=== PATIENT | male | born 1960 | race Caucasian/White ===

== ENCOUNTER → 2017-01-18 | Outpatient (CLI) | payer OTHER, MEDICAID ==
[2016-10-13 05:05] VITALS: BP 121/82
[2017-01-18 14:42] LABS: BASOPHILS % (AUTO) 0.8 % (0.2-1.0); EOSINOPHILS # (AUTO) 0.1 x10^3/uL (0.0-0.2); EOSINOPHILS % (AUTO) 2.1 % (0.9-2.9); HEMATOCRIT 43.6 % (42.0-54.0); HEMOGLOBIN 15.5 g/dL (13.5-18.0); LYMPHOCYTES # (AUTO) 1.9 X10^3/uL (1.3-2.9); LYMPHOCYTES % (AUTO) 29.1 % (21.0-51.0); MEAN CORPUSCULAR HEMOGLOBIN 30.3 pg (27.0-34.0); MEAN CORPUSCULAR HGB CONC 35.5 g/dL (33.0-35.0); MEAN CORPUSCULAR VOLUME 85.5 fL (80.0-100.0); MEAN PLATELET VOLUME 7.4 fL (7.4-11.0); MONOCYTES # (AUTO) 0.6 x10^3/uL (0.3-0.8); MONOCYTES % (AUTO) 8.7 % (0.0-13.0); NEUTROPHILS # (AUTO) 3.8 x10^3/uL (2.2-4.8); NEUTROPHILS % (AUTO) 59.3 % (42.0-75.0); PLATELET COUNT 183 X10^3/uL (150.0-450.0); RED CELL DISTRIBUTION WIDTH 13.1 % (11.6-16.5); WHITE BLOOD COUNT 6.4 X10^3/uL (3.6-10.0)
[2017-01-18 14:51] LABS: ALBUMIN 3.9 g/dL (3.4-5.0); BLOOD UREA NITROGEN 16 mg/dL (7-18); CALCIUM 8.5 mg/dL (8.5-10.1); CARBON DIOXIDE 29.4 mmol/L (21-32); CHLORIDE 103 mmol/L (98-107); CHOL/HDL RATIO 3.6 (0.0-5.0); CHOLESTEROL 168 mg/dL (0-200); CREATININE 1.14 mg/dL (0.70-1.30); GLUCOSE 102 mg/dL (65-99); HDL CHOLESTEROL 47 mg/dL (40-60); PHOSPHORUS 3.7 mg/dL (2.6-4.7); SODIUM 144 mmol/L (136-145); TRIGLYCERIDES 119 mg/dL (0-150); eGFR BLACK RACES > 60 (>60); eGFR NON BLACK RACES > 60 (>60)
== END ==
LOC: LAB 14:16
PROVIDERS: ATTEND Internal Medicine
DX: I12.9 Hypertensive chronic kidney disease with stage 1 through stage 4 chronic kidney disease, or unspecified chronic kidney disease (principal); N18.2 Chronic kidney disease, stage 2 (mild)
CPT/HCPCS: 36415; 80061; 80069; 84550; 85025

== ENCOUNTER → 2017-02-19 | Outpatient (CLI) | payer OTHER, MEDICAID ==
[2016-10-13 05:05] VITALS: BP 121/82
[2017-02-19 14:03] LABS: BASOPHILS # (AUTO) 0.1 X10^3/uL (0.0-0.1); BASOPHILS % (AUTO) 0.8 % (0.2-1.0); EOSINOPHILS # (AUTO) 0.1 x10^3/uL (0.0-0.2); EOSINOPHILS % (AUTO) 1.9 % (0.9-2.9); HEMATOCRIT 48.7 % (42.0-54.0); HEMOGLOBIN 17.1 g/dL (13.5-18.0); LYMPHOCYTES # (AUTO) 1.9 X10^3/uL (1.3-2.9); LYMPHOCYTES % (AUTO) 28.1 % (21.0-51.0); MEAN CORPUSCULAR HEMOGLOBIN 30.2 pg (27.0-34.0); MEAN CORPUSCULAR VOLUME 86.3 fL (80.0-100.0); MEAN PLATELET VOLUME 8.5 fL (7.4-11.0); MONOCYTES # (AUTO) 0.7 x10^3/uL (0.3-0.8); MONOCYTES % (AUTO) 10.5 % (0.0-13.0); NEUTROPHILS # (AUTO) 3.9 x10^3/uL (2.2-4.8); NEUTROPHILS % (AUTO) 58.7 % (42.0-75.0); PLATELET COUNT 184 X10^3/uL (150.0-450.0); RED BLOOD COUNT 5.64 X10^6/uL (4.7-6.0); RED CELL DISTRIBUTION WIDTH 13.6 % (11.6-16.5); WHITE BLOOD COUNT 6.7 X10^3/uL (3.6-10.0)
[2017-02-19 17:13] LABS: ALBUMIN 4.4 g/dL (3.4-5.0); BLOOD UREA NITROGEN 11 mg/dL (7-18); CALCIUM 9.3 mg/dL (8.5-10.1); CARBON DIOXIDE 29.9 mmol/L (21-32); CHLORIDE 102 mmol/L (98-107); CHOL/HDL RATIO 4.7 (0.0-5.0); CHOLESTEROL 168 mg/dL (0-200); GLUCOSE 103 mg/dL (65-99); HDL CHOLESTEROL 36 mg/dL (40-60); PHOSPHORUS 3.5 mg/dL (2.6-4.7); TRIGLYCERIDES 169 mg/dL (0-150); eGFR BLACK RACES > 60 (>60); eGFR NON BLACK RACES > 60 (>60)
[2017-02-19 17:23] LABS: SODIUM 140 mmol/L (136-145)
== END ==
LOC: LAB 12:11
PROVIDERS: ATTEND Internal Medicine
DX: I12.9 Hypertensive chronic kidney disease with stage 1 through stage 4 chronic kidney disease, or unspecified chronic kidney disease (principal); N18.2 Chronic kidney disease, stage 2 (mild); E78.4 Other hyperlipidemia; G47.33 Obstructive sleep apnea (adult) (pediatric); E66.8 Other obesity
CPT/HCPCS: 36415; 80061; 80069; 85025

== ENCOUNTER 2017-06-22 23:29 | Emergency (ER) | payer OTHER, MEDICAID ==
[2017-06-22 23:39] VITALS: BP 152/94; BMI 36.7
[2017-06-23] MEDS ORDERED: LASIX IVP ONE ×2 (00:10→00:16)
--- NOTE | 2017-06-23 00:18 | DR.GENAD ---
HPI - Complaint/Symptoms Chief Complaint Doctors Comments: Patient states he has been having problems breathing for the past seven days. States he goes to Dr. Arnett in [place] and sees a director of sales marketing and kidney doctor in [place]. He denies tobacco or alcohol usage. He had xiphoid chest pain earliers that was sharp but he is not having any chest pains presently. States he is having SOB and wheezing. states he has been having problems breathing and has been using mucinex without improvement. States he has c-pap machine at home and a nebulizer but does not have any medicine to go int the machine. States he has been having swelling of his right foot and leg today. States has episodes of severe cramps at times in his abdomen that cause him to punch himself in the stomach to relieve the cramps. States he has bruising on his stomach from punching himself. Chief Complaint:: pt states that he has been having trouble breathing and his breathing has been getting worse for 3 days. c/o lt ankle swelling. c/o chest pain. onset 1899. Self Treatment fo Chief Complaint: took nitro with no relief. - Nurses notes reviewed Nurses Notes Review: Yes - Source History Provided: Patient - Mode of Arrival Mode of Arrival: Ambulatory - Timing Onset of Chief Complaint: 06/20/17 - Duration Duration: Constant How lon Duration: Days - Location Location: xiphoid chest pain and SOB, - Severity Severity: Moderate - Modifying Factors Worsens:: nothing Improves:: nothing PMH - PMH Past Medical History: Yes Past Medical History: Anxiety, CHF, Depression, Dyslipidemia, Headaches, Hypertension, [place], Renal Disease Past Surgical History: Yes Surgical History: CABG/Valve Surgery, Ortho Surgery - Family History History of Family Medical Conditions: Yes Family Medical History: Diabetes Mellitus, Heart Failure, Hypertension - Social History Do you use any recreational Drugs:: No - infectious screening Have you traveled outside the country in the last 6 months?: No ROS - Review of Systems Constitutional: No Symptoms Reported Eyes: No Symptoms Reported ENTM: No Symptoms Reported, Nose Congestion Respiratoy: Short of Breath, Wheezing. negative: No Symptoms Reported, See HPI , Productive Cough, Non-Productive Cough, Moist Cough, Dry Cough, Hacking Cough , Barking Cough, Brassy Cough, Orthopnea, Stridor, Hemoptysis, Other Cardiovascular: No Symptoms Reported, Chest Pain, Edema Gastrointestinal/Abdominal: No Symptoms Reported. negative: Abdominal Pain ( bruising and ecchymosis noted hypogastric area) Genitourinary: No Symptoms Reported, Dysuria Neurological: No Symptoms Reported Musculoskeletal: No Symptoms Reported Integumentary: No Symptoms Reported, Change in Color, Bruises Hematologic/Lymphatic: No Symptoms Reported, Easy Bruising Endocrine: No Symptoms Reported Psychiatric: No Symptoms Reported PE - Vital Signs Vitals: Temperature 97.9 F Pulse Rate 70 Respiratory Rate 18 Blood Pressure [Right Arm] 101/58 Blood Pressure [Left Arm] 113/75 Blood Pressure [Standing] 103/71 Blood Pressure [Sitting] 121/76 Blood Pressure [Lying] 122/76 Blood Pressure 152/94 O2 Sat by Pulse Oximetry 97 - General Limitations: No Limitations General Appearance: Alert, Appears Intoxicated - Head Head Exam: Normal Inspection, Atraumatic, Normocephalic - Eyes Eye exam: Normal Appearance, PERRL, EOMI. negative: Scleral Icterus, Conjunctival Injection, Nystagmus, Miosis, Mydrasis, Periorbital Swelling, Periorbital Tenderness, Other - ENT ENT Exam: Normal Exam, Normal Oropharynx, Normal External Ear Exam, TM's Normal Bilaterally External Ear Exam: Normal External Inspection TM/Canal Exam: Bilateral Normal Nose Exam: Normal Nose Exam Mouth Exam: Normal Inspection Throat Exam: Normal Inspection, Tonsillar Erythema, Tonsillar Exudate - Neck Neck Exam: Normal Inspection, Full ROM, Trachea Midline. negative: Tenderness, Meningismus, Lymphadenopathy, Thyromegaly, Other - Chest Chest Inspection: Normal Inspection, Symmetric Chest Wall Rise - Respiratory Respiratory Exam: Chest Wall Tenderness, Prolonged Expiratory Phase. negative: Normal Lung Sounds Bilat Respiratory Exam: Bilateral Clear to Auscultation, Bilateral Decreased Breath Sounds - Cardiovascular Cardiovascular Exam: Normal Rhythm, Normal Heart Sounds, Systolic Murmur - Abdominal Exam Abdominal Exam: Normal Inspection Abdominal Tenderness: negative: RUQ, RLQ, LUQ, LLQ, Epigastrium, Suprapubic, Diffuse, Mild, Moderate, Severe, Other - Extremities Extremities Exam: Normal Inspection, Full ROM, Normal Capillary Refill - Back Back Exam: Normal Inspection, Full ROM - Neurologic Neurological Exam: Alert, Oriented X3, CN II-XII Intact, Reflexes Normal. negative: Normal Gait (gait not tested) - Psychiatric Psychiatric Exam: Normal Affect, Normal Mood - Skin Skin Exam: Warm, Dry, Intact, Normal Color ROR - Labs Reviewed Laboratory Results Reviewed?: Yes (all labs and x-ray results reviewed and discussed with patient) Result Diagrams: 06/23/17 00:20 06/23/17 00:20 Laboratory: WBC 10.0 X10^3/uL (3.6-10.0) 06/23/17 00:20 RBC 4.72 X10^6/uL (4.7-6.0) 06/23/17 00:20 Hgb 14.9 g/dL (13.5-18.0) 06/23/17 00:20 Hct 41.1 % (42.0-54.0) L 06/23/17 00:20 MCV 87.2 fL (80.0-100.0) 06/23/17 00:20 MCH 31.6 pg (27.0-34.0) 06/23/17 00:20 MCHC 36.3 g/dL (33.0-35.0) H 06/23/17 00:20 RDW 14.0 % (11.6-16.5) 06/23/17 00:20 Plt Count 223 X10^3/uL (150.0-450.0) 06/23/17 00:20 MPV 7.7 fL (7.4-11.0) 06/23/17 00:20 Neut % 74.5 % (42.0-75.0) 06/23/17 00:20 Lymph % 16.1 % (21.0-51.0) L 06/23/17 00:20 [place] % 7.1 % (0.0-13.0) 06/23/17 00:20 Eos % 1.4 % (0.9-2.9) 06/23/17 00:20 Baso % 0.9 % (0.2-1.0) 06/23/17 00:20 Neut # 7.4 x10^3/uL (2.2-4.8) H 06/23/17 00:20 Lymph # 1.6 X10^3/uL (1.3-2.9) 06/23/17 00:20 Crawford # 0.7 x10^3/uL (0.3-0.8) 06/23/17 00:20 Eos # 0.1 x10^3/uL (0.0-0.2) 06/23/17 00:20 Baso # 0.1 X10^3/uL (0.0-0.1) 06/23/17 00:20 Absolute Nucleated RBC 0.0 /100WBC 06/23/17 00:20 INR Target Range - 06/23/17 00:20 INR 0.97 (0.8-1.3) 06/23/17 00:20 PTT 29.2 SECONDS (22.9-36.5) 06/23/17 00:20 PTT Comment - 06/23/17 00:20 D-Dimer 779 ng/mL (0-400) H* 06/23/17 00:20 Sodium 134 mmol/L (136-145) L 06/23/17 00:20 Corrected Sodium 134 mmol/L (136-145) L 06/23/17 00:20 Potassium 3.4 mmol/L (3.5-5.1) L 06/23/17 00:20 Chloride 94 mmol/L (98-107) L 06/23/17 00:20 Carbon Dioxide 36.2 mmol/L (21-32) H 06/23/17 00:20 BUN 24 mg/dL (7-18) H 06/23/17 00:20 Creatinine 1.31 mg/dL (0.70-1.30) H 06/23/17 00:20 Est GFR (MDRD) Af Amer > 60 (>60) 06/23/17 00:20 Est GFR (MDRD) Non-Af > 60 (>60) 06/23/17 00:20 Glucose 117 mg/dL (65-99) H 06/23/17 00:20 Calcium 8.9 mg/dL (8.5-10.1) 06/23/17 00:20 Corrected Calcium TNP 06/23/17 00:20 Magnesium 2.2 mg/dL (1.7-2.9) 06/23/17 00:20 Total Bilirubin 0.70 mg/dL (0.2-1.0) 06/23/17 00:20 AST 42 Units/L (15-37) H 06/23/17 00:20 ALT 37 Units/L (12-78) 06/23/17 00:20 Alkaline Phosphatase 53 Units/L (46-116) 06/23/17 00:20 Creatine Kinase 800 Units/L (39-308) H 06/23/17 00:20 CK-MB (CK-2) 2.7 ng/mL (0-4.0) 06/23/17 00:20 CK/CKMB % Calc 0.3 % (<4) 06/23/17 00:20 Troponin I 0.02 ng/mL (0-1.5) 06/23/17 00:20 B-Natriuretic Peptide 150 pg/mL (0-79) H 06/23/17 00:20 Total Protein 7.8 g/dL (6.4-8.2) 06/23/17 00:20 Albumin 3.7 g/dL (3.4-5.0) 06/23/17 00:20 Globulin 4.1 g/dL (2.5-4.5) 06/23/17 00:20 Albumin/Globulin Ratio 0.9 Ratio (1.1-2.1) L 06/23/17 00:20 - XRAY XRAY Interpreted by: Radiologist (CTA chest: Cardiomegaly. No pulmonary embolism.) XRAY Findings: CXR: Mild cardiomegaly and central vascular congestion - EKG Rate: 69 [place]: Normal Rhythm: NSR Block: None Hypertrophy: None ST: Old, Lat, Infarct - Diagnosis Discharge Problem: CHF (congestive heart failure), Cardiomegaly, Hypokalemia, Essential hypertension - Discharge Plan Disposition: 01 HOME, SELF-CARE Condition: Stable - Follow ups/Referrals Follow ups/Referrals: MAVIS MCCORMACK [Primary Care Provider] - 3 days - Instructions Instructions: Ascites, Heart Failure, [id number], Hypokalemia, Hyperglycemia
[2017-06-23 01:03] LABS: BLOOD UREA NITROGEN 24 mg/dL (7-18); CALCIUM 8.9 mg/dL (8.5-10.1); CARBON DIOXIDE 36.2 mmol/L (21-32); CHLORIDE 94 mmol/L (98-107); COR NA(FOR HYPERGLY) 134 mmol/L (136-145); CREATININE 1.31 mg/dL (0.70-1.30); SODIUM 134 mmol/L (136-145); TROPONIN I 0.02 ng/mL (0-1.5); eGFR BLACK RACES > 60 (>60); eGFR NON BLACK RACES > 60 (>60)
[2017-06-23 01:07] LABS: BASOPHILS # (AUTO) 0.1 X10^3/uL (0.0-0.1); BASOPHILS % (AUTO) 0.9 % (0.2-1.0); EOSINOPHILS # (AUTO) 0.1 x10^3/uL (0.0-0.2); EOSINOPHILS % (AUTO) 1.4 % (0.9-2.9); HEMATOCRIT 41.1 % (42.0-54.0); HEMOGLOBIN 14.9 g/dL (13.5-18.0); LYMPHOCYTES # (AUTO) 1.6 X10^3/uL (1.3-2.9); LYMPHOCYTES % (AUTO) 16.1 % (21.0-51.0); MEAN CORPUSCULAR HEMOGLOBIN 31.6 pg (27.0-34.0); MEAN CORPUSCULAR HGB CONC 36.3 g/dL (33.0-35.0); MEAN CORPUSCULAR VOLUME 87.2 fL (80.0-100.0); MEAN PLATELET VOLUME 7.7 fL (7.4-11.0); MONOCYTES # (AUTO) 0.7 x10^3/uL (0.3-0.8); MONOCYTES % (AUTO) 7.1 % (0.0-13.0); NEUTROPHILS # (AUTO) 7.4 x10^3/uL (2.2-4.8); NEUTROPHILS % (AUTO) 74.5 % (42.0-75.0); PLATELET COUNT 223 X10^3/uL (150.0-450.0); RED BLOOD COUNT 4.72 X10^6/uL (4.7-6.0)
[2017-06-23 01:08] LABS: ALANINE AMINOTRANSFERASE 37 Units/L (12-78); ALBUMIN 3.7 g/dL (3.4-5.0); ALKALINE PHOSPHATASE 53 Units/L (46-116); ASPARTATE AMINO TRANSFERASE 42 Units/L (15-37); B-TYPE NATRIURETIC PEPTIDE 150 pg/mL (0-79); CKMB % 0.3 % (<4); CREATINE KINASE 800 Units/L (39-308); CREATINE KINASE MB 2.7 ng/mL (0-4.0); MAGNESIUM 2.2 mg/dL (1.7-2.9); TOTAL PROTEIN 7.8 g/dL (6.4-8.2)
--- NOTE | 2017-06-23 01:21 | RAD ---
EXAM: Chest X-ray INDICATION: Shortness of breath COMPARISION: Prior exam from January 13, 2015 TECHNIQUE: Single view FINDINGS: The lungs are clear and the lung volumes are within normal limits. No pleural effusion or pneumothora x. The cardiac silhouette is mildly enlarged and there central vascular congestion. The regional ske leton is intact. There is a left-sided defibrillator. IMPRESSION: There is mild cardiomegaly and central vascular congestion. Reported By:
--- NOTE | 2017-06-23 02:57 | CT ---
EXAM: CTA CHEST WITH CONTRAST INDICATION: Shortness of breath COMPARISION: No priors for comparison TECHNIQUE: Spiral CT of the chest was performed with contrast. Thin reconstructions in the axial and para-bassett l planes were obtained. 3D MIP imaging sequences were obtained using the axial data. The patient rece ived intravenous contrast without adverse reaction. FINDINGS: The heart is enlarged. No pulmonary embolism. No aortic aneurysm or dissection. No mediastinal or hil ar mass or adenopathy. The lungs are clear. No lung mass or consolidation. No pneumothorax or pleural effusion. IMPRESSION: Cardiomegaly. No pulmonary embolism. Reported By:
[2017-06-23] MEDS ORDERED: K-LYTE EFFERVESCENT PO STA (03:49)
[2017-06-23] MEDS ORDERED: K-LYTE EFFERVESCENT ONE (04:00)
== END 2017-06-23 04:08 | disposition home or self-care (01) ==
LOC: ER 23:29
DX: I50.9 Heart failure, unspecified (principal); I51.7 Cardiomegaly; I10 Essential (primary) hypertension; E87.6 Hypokalemia; R06.02 Shortness of breath; R79.1 Abnormal coagulation profile
CPT/HCPCS: 36415; 71010; 71275; 80053; 82550; 82553; 83735; 83880; 84484; 85025; 85378; 85610; 85730; 93005; 93010; 96365; 96367; 96374; 99283; A4222; J1940

== ENCOUNTER 2017-07-22 07:23 | Emergency (ER) | payer OTHER, MEDICAID ==
[2017-07-22 07:39] VITALS: BP 110/70; BMI 34.4
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
== END 2017-07-22 09:28 | disposition home or self-care (01) ==
LOC: ER 07:41
DX: G47.30 Sleep apnea, unspecified (principal)
CPT/HCPCS: 99281; 99282

== ENCOUNTER 2017-08-06 16:01 | Emergency (ER) | payer OTHER, MEDICAID ==
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
[2017-08-06 16:23] VITALS: BMI 29.0
[2017-08-06 16:59] LABS: EOSINOPHILS # (AUTO) 0.1 x10^3/uL (0.0-0.2); MONOCYTES # (AUTO) 1.1 x10^3/uL (0.3-0.8)
[2017-08-06 17:13] LABS: BASOPHILS # (AUTO) 0.3 X10^3/uL (0.0-0.1); BASOPHILS % (AUTO) 2.5 % (0.2-1.0); EOSINOPHILS % (AUTO) 0.8 % (0.9-2.9); HEMATOCRIT 46.3 % (42.0-54.0); HEMOGLOBIN 16.8 g/dL (13.5-18.0); LYMPHOCYTES # (AUTO) 1.5 X10^3/uL (1.3-2.9); LYMPHOCYTES % (AUTO) 11.8 % (21.0-51.0); MEAN CORPUSCULAR HEMOGLOBIN 30.9 pg (27.0-34.0); MEAN CORPUSCULAR HGB CONC 36.2 g/dL (33.0-35.0); MEAN CORPUSCULAR VOLUME 85.4 fL (80.0-100.0); MONOCYTES % (AUTO) 8.5 % (0.0-13.0); NEUTROPHILS # (AUTO) 9.7 x10^3/uL (2.2-4.8); NEUTROPHILS % (AUTO) 76.4 % (42.0-75.0); PLATELET COUNT 280 X10^3/uL (150.0-450.0); RED BLOOD COUNT 5.42 X10^6/uL (4.7-6.0); RED CELL DISTRIBUTION WIDTH 12.8 % (11.6-16.5); WHITE BLOOD COUNT 12.7 X10^3/uL (3.6-10.0)
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
[2017-08-06 17:49] LABS: ALANINE AMINOTRANSFERASE 33 Units/L (12-78); ALBUMIN 4.6 g/dL (3.4-5.0); ALKALINE PHOSPHATASE 76 Units/L (46-116); ASPARTATE AMINO TRANSFERASE 34 Units/L (15-37); BLOOD UREA NITROGEN 25 mg/dL (7-18); CALCIUM 10.1 mg/dL (8.5-10.1); CARBON DIOXIDE 36.7 mmol/L (21-32); CHLORIDE 88 mmol/L (98-107); CKMB % 1.1 % (<4); COR NA(FOR HYPERGLY) 135 mmol/L (136-145); CREATINE KINASE 335 Units/L (39-308); CREATINE KINASE MB 3.8 ng/mL (0-4.0); CREATININE 1.69 mg/dL (0.70-1.30); SODIUM 134 mmol/L (136-145); TOTAL PROTEIN 9.5 g/dL (6.4-8.2); TROPONIN I < 0.02 ng/mL (0-1.5); eGFR BLACK RACES 54 (>60); eGFR NON BLACK RACES 45 (>60)
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
[2017-08-06] MEDS ORDERED: POTASSIUM CHLORIDE LIQ 20 MEQ UDC PO ONE (18:33)
[2017-08-06] MEDS ORDERED: POTASSIUM CHLORIDE LIQ 20 MEQ UDC ONE (18:41)
[2017-08-06 19:22] VITALS: BP 120/83
== END 2017-08-06 19:23 | disposition home or self-care (01) ==
LOC: ER 16:01
DX: S29.019A Strain of muscle and tendon of unspecified wall of thorax, initial encounter (principal); S39.012A Strain of muscle, fascia and tendon of lower back, initial encounter; S20.211A Contusion of right front wall of thorax, initial encounter; V87.7XXA Person injured in collision between other specified motor vehicles (traffic), initial encounter; R51 Headache
CPT/HCPCS: 36415; 70450; 71250; 72125; 72131; 80053; 82550; 82553; 84484; 85025; 93005; 93010; 99283

== ENCOUNTER 2017-08-18 09:12 | Inpatient (IN) | payer OTHER, MEDICAID ==
[~2017-08-18 09:12] MED LIST: ASPIRIN PO ONE
[2017-08-18] MEDS: NITROSTAT SL PRN ×3 (09:12→09:23)
--- NOTE | 2017-08-18 09:25 | DR.CP ---
HPI - Time Seen Time seen: 09:10 - HPI Comment HPI Comment: 56 y/o male presenting via EMS with onset at about 6 a.m. It was intermittent but became steady. He took 1 NTG S/L w/o relief. There was associated nausea but no vomitting. He had dyspnea. There was no readiation of the retrosternal chest pain. - Complaint Chief Complaint:: Chest pain - Source History Provided: Patient - Mode of Arrival Mode of Arrival: EMS - Timing Came on: Gradually, On Awakening Pain: Present Now - Duration Duration: Constant (It was intermittent but became constant) Duration: Hours - Location Location of Chest Pain: Chest Chest Pain Radiation Location: None - Context Onset: At rest Cardiac Risk Factors: Hyperlipidemia, HTN, Diabetes PE Risk Factors: None History of: Similar pain in the past, [place], Angina Prehospital Care: Oxygen, [facility] Nitro - Quality Quality: Squeezing - Severity Severity: Severe - Modifying Factors Worsens: Nothing Impoves: Nothing - Associated Signs and Symptoms Associated Signs and Symptoms: Shortness of Breath, Nausea/Vomiting - Other History Other History: nausea w/o vomitting PMH - PMH Past Medical History: Anxiety, CHF, Depression, Dyslipidemia, Headaches, Hypertension, [place], Renal Disease Past Surgical History: Yes Surgical History: CABG/Valve Surgery, Ortho Surgery - Family History Family Medical History: Diabetes Mellitus, Heart Failure, Hypertension - Social History Do you use any recreational Drugs:: No ROS - Review of Systems Constitutional: No Symptoms Reported Eyes: No Symptoms Reported ENTM: No Symptoms Reported Respiratoy: Short of Breath Cardiovascular: Chest Pain Gastrointestinal/Abdominal: Nausea Genitourinary: No Symptoms Reported Neurological: No Symptoms Reported Musculoskeletal: No Symptoms Reported Integumentary: No Symptoms Reported Hematologic/Lymphatic: No Symptoms Reported Endocrine: No Symptoms Reported Psychiatric: No Symptoms Reported All Other Systems: Reviewed and Negative PE - Vitals Vitals: Temperature 98.1 F Pulse Rate [Right Brachial] 69 Pulse Rate 70 Respiratory Rate 21 Blood Pressure [Right Arm] 122/65 Blood Pressure [Left Arm] 120/83 Blood Pressure [Standing] 103/71 Blood Pressure [Sitting] 121/76 Blood Pressure [Lying] 122/76 Blood Pressure 134/78 O2 Sat by Pulse Oximetry 100 - General Limitations: No Limitations General Appearance: Alert, In No Apparent Distress - Head Head Exam: Normal Inspection - Eyes Eye exam: Normal Appearance - ENT ENT Exam: Normal Exam - Chest Chest Inspection: Normal Inspection - Respiratory Respiratory Exam: Normal Lung Sounds Bilat Respiratory Exam: Bilateral Clear to Auscultation - Cardiovascular Cardiovascular Exam: Regular Rate, Normal Rhythm Pulse: Normal Edema: Normal - Abdominal Exam Abdominal Exam: Normal Inspection, Normal Bowel Sounds, Soft - Extremities Extremities Exam: Normal Inspection, Full ROM - Back Back Exam: Normal Inspection, Full ROM - Neurologic Neurological Exam: Alert, Oriented X3, CN II-XII Intact - Psychiatric Psychiatric Exam: Normal Affect - Skin Skin Exam: Warm, Dry, Intact MDM - Differential Diagnosis Differential Diagnosis: Angina Course - Reevaluation 1st: Improved 2nd: Improved - Consultation Called: 10:50 Call Returned: 10:50 Consultation Comments: No need to transfer now based on current findings. If changes develop, call again - Education/Counseling Education/Counseling: Patient, Family Educated On: Treatment, Diagnosis, Prognosis, Needs for Follow Up ROR - Labs Reviewed Result Diagrams: 08/18/17 09:20 08/18/17 09:20 Laboratory: WBC 8.5 X10^3/uL (3.6-10.0) 08/18/17 09:20 RBC 4.85 X10^6/uL (4.7-6.0) 08/18/17 09:20 Hgb 15.2 g/dL (13.5-18.0) 08/18/17 09:20 Hct 42.3 % (42.0-54.0) 08/18/17 09:20 MCV 84.4 fL (80.0-100.0) 08/18/17 09:20 MCH 30.8 pg (27.0-34.0) 08/18/17 09:20 MCHC 36.4 g/dL (33.0-35.0) H 08/18/17 09:20 RDW 13.0 % (11.6-16.5) 08/18/17 09:20 Plt Count 250 X10^3/uL (150.0-450.0) 08/18/17 09:20 MPV 8.1 fL (7.4-11.0) 08/18/17 09:20 Neut % 68.0 % (42.0-75.0) 08/18/17 09:20 Lymph % 22.2 % (21.0-51.0) 08/18/17 09:20 [place] % 8.1 % (0.0-13.0) 08/18/17 09:20 Eos % 0.9 % (0.9-2.9) 08/18/17 09:20 Baso % 0.8 % (0.2-1.0) 08/18/17 09:20 Neut # 5.8 x10^3/uL (2.2-4.8) H 08/18/17 09:20 Lymph # 1.9 X10^3/uL (1.3-2.9) 08/18/17 09:20 [place] # 0.7 x10^3/uL (0.3-0.8) 08/18/17 09:20 Eos # 0.1 x10^3/uL (0.0-0.2) 08/18/17 09:20 Baso # 0.1 X10^3/uL (0.0-0.1) 08/18/17 09:20 Absolute Nucleated RBC 0.0 /100WBC 08/18/17 09:20 INR Target Range - 08/18/17 09:20 INR 1.38 (0.8-1.3) H 08/18/17 09:20 PTT 29.5 SECONDS (22.9-36.5) 08/18/17 09:20 PTT Comment - 08/18/17 09:20 D-Dimer 2400 ng/mL (0-400) H* 08/18/17 09:20 Sodium 130 mmol/L (136-145) L 08/18/17 09:20 Corrected Sodium 131 mmol/L (136-145) L 08/18/17 09:20 Potassium 2.2 mmol/L (3.5-5.1) L* 08/18/17 09:20 Chloride 98 mmol/L (98-107) 08/18/17 09:20 Carbon Dioxide 27.9 mmol/L (21-32) 08/18/17 09:20 BUN 15 mg/dL (7-18) 08/18/17 09:20 Creatinine 1.11 mg/dL (0.70-1.30) 08/18/17 09:20 Est GFR (MDRD) Af Amer > 60 (>60) 08/18/17 09:20 Est GFR (MDRD) Non-Af > 60 (>60) 08/18/17 09:20 Glucose 134 mg/dL (65-99) H 08/18/17 09:20 Calcium 8.6 mg/dL (8.5-10.1) 08/18/17 09:20 Corrected Calcium TNP 08/18/17 09:20 Phosphorus 2.7 mg/dL (2.6-4.7) 08/18/17 09:14 Magnesium 1.7 mg/dL (1.7-2.9) 08/18/17 09:14 Total Bilirubin 1.20 mg/dL (0.2-1.0) H 08/18/17 09:20 AST 36 Units/L (15-37) 08/18/17 09:20 ALT 35 Units/L (12-78) 08/18/17 09:20 Alkaline Phosphatase 57 Units/L (46-116) 08/18/17 09:20 Creatine Kinase 354 Units/L (39-308) H 08/18/17 09:20 CK-MB (CK-2) 3.9 ng/mL (0-4.0) 08/18/17 09:20 CK/CKMB % Calc 1.1 % (<4) 08/18/17 09:20 Troponin I < 0.02 ng/mL (0-1.5) 08/18/17 09:20 Total Protein 7.8 g/dL (6.4-8.2) 08/18/17 09:20 Albumin 3.7 g/dL (3.4-5.0) 08/18/17 09:20 Globulin 4.1 g/dL (2.5-4.5) 08/18/17 09:20 Albumin/Globulin Ratio 0.9 Ratio (1.1-2.1) L 08/18/17 09:20 - XRAY XRAY Interpreted by: Self XRAY Findings: no cardiomegaly. pacemaker wires noted. - EKG Rate: 68 [place]: RAD Rhythm: NSR Block: None Hypertrophy: None ST: Normal - Diagnosis Discharge Problem: Chest pain, CAD (coronary artery disease), Hyponatremia, Hypokalemia, D-dimer, elevated - Discharge Plan Disposition: ADMITTED INPATIENT Condition: Stable - Follow ups/Referrals Follow ups/Referrals: NFD,None [Primary Care Provider] - 3 days - Instructions
[2017-08-18 09:36] VITALS: BMI 35.9
[2017-08-18] MEDS ORDERED: ASPIRIN ONE (09:46)
[2017-08-18] MEDS ORDERED: MORPHINE SULFATE INJ 2 MG INJ IVP ONE (09:49)
[2017-08-18] MEDS ORDERED: MORPHINE SULFATE INJ 2 MG INJ ONE (09:50)
[2017-08-18 10:01] LABS: ALANINE AMINOTRANSFERASE 35 Units/L (12-78); ALBUMIN 3.7 g/dL (3.4-5.0); ALKALINE PHOSPHATASE 57 Units/L (46-116); ASPARTATE AMINO TRANSFERASE 36 Units/L (15-37); BLOOD UREA NITROGEN 15 mg/dL (7-18); CALCIUM 8.6 mg/dL (8.5-10.1); CARBON DIOXIDE 27.9 mmol/L (21-32); CHLORIDE 98 mmol/L (98-107); CKMB % 1.1 % (<4); COR NA(FOR HYPERGLY) 131 mmol/L (136-145); CREATINE KINASE 354 Units/L (39-308); CREATINE KINASE MB 3.9 ng/mL (0-4.0); CREATININE 1.11 mg/dL (0.70-1.30); SODIUM 130 mmol/L (136-145); TOTAL PROTEIN 7.8 g/dL (6.4-8.2); TROPONIN I < 0.02 ng/mL (0-1.5); eGFR BLACK RACES > 60 (>60); eGFR NON BLACK RACES > 60 (>60)
[2017-08-18 10:13] LABS: MAGNESIUM 1.6 mg/dL (1.7-2.9); PHOSPHORUS 2.7 mg/dL (2.6-4.7)
[2017-08-18 10:13] LABS: BASOPHILS # (AUTO) 0.1 X10^3/uL (0.0-0.1); BASOPHILS % (AUTO) 0.8 % (0.2-1.0); EOSINOPHILS # (AUTO) 0.1 x10^3/uL (0.0-0.2); EOSINOPHILS % (AUTO) 0.9 % (0.9-2.9); LYMPHOCYTES # (AUTO) 1.9 X10^3/uL (1.3-2.9); LYMPHOCYTES % (AUTO) 22.2 % (21.0-51.0); MEAN CORPUSCULAR HEMOGLOBIN 30.8 pg (27.0-34.0); MEAN CORPUSCULAR HGB CONC 36.4 g/dL (33.0-35.0); MEAN CORPUSCULAR VOLUME 84.4 fL (80.0-100.0); MEAN PLATELET VOLUME 8.1 fL (7.4-11.0); MONOCYTES # (AUTO) 0.7 x10^3/uL (0.3-0.8); MONOCYTES % (AUTO) 8.1 % (0.0-13.0); NEUTROPHILS # (AUTO) 5.8 x10^3/uL (2.2-4.8); PLATELET COUNT 250 X10^3/uL (150.0-450.0); RED BLOOD COUNT 4.85 X10^6/uL (4.7-6.0); WHITE BLOOD COUNT 8.5 X10^3/uL (3.6-10.0)
[2017-08-18 10:24] LABS: HEMATOCRIT 42.3 % (42.0-54.0); HEMOGLOBIN 15.2 g/dL (13.5-18.0)
[2017-08-18] MEDS ORDERED: K-LYTE EFFERVESCENT PO ONE ×2 (10:52→20:13)
[2017-08-18] MEDS ORDERED: K-LYTE EFFERVESCENT ONE (10:53)
[2017-08-18] MEDS ORDERED: K-RIDER 10 MEQ/NS 100 ML 10 MEQ/100 ML BAG IV PRN (11:00)
[2017-08-18] MEDS ORDERED: MAGNESIUM SULFATE 1 GM/100 mL PREMIX 1 GM/100 ML BAG IV PRN (11:00)
[2017-08-18] MEDS ORDERED: MAG-OX TAB PO PRN (11:00)
[2017-08-18] MEDS ORDERED: LEVAQUIN PREMIX IV 750 MG 750 MG/150 ML BAG IV ONE (11:19)
[2017-08-18] MEDS ORDERED: NS 100 ML IV 100 ML IV ONE (11:41)
--- NOTE | 2017-08-18 12:47 | RAD ---
HISTORY: 56-year-old female with chest pain. Study: Frontal view of the chest. Comparison: CT chest 08/06/2017 Findings: Right chest wall AICD is stable. Right shoulder soft tissue anchors. The trachea is midline. The cardiac silhouette is stably enlarged with low lung volumes and chronic interstitial thickening and prominent perihilar lung markings. The lungs are clear without focal con solidation, effusion or pneumothorax. Soft tissues are unremarkable. Osseous structures are unremark able. IMPRESSION: 1. No acute cardiopulmonary disease. Reported By:
[2017-08-18] MEDS ORDERED: PERCOCET TAB 5/325 MG PO ONE (13:05)
[2017-08-18] MEDS ORDERED: PERCOCET TAB 5/325 MG ONE (13:05)
[2017-08-18] MEDS: K-LYTE EFFERVESCENT PO PRN ×3 (13:08→16:45)
[2017-08-18] MEDS ORDERED: PREVNAR 13 IM ONE (15:34)
[2017-08-18] MEDS ORDERED: FLUVIRIN IM ONE (15:34)
[2017-08-18 15:54] LABS: CREATINE KINASE 339 Units/L (39-308); CREATINE KINASE MB 3.5 ng/mL (0-4.0); TROPONIN I < 0.02 ng/mL (0-1.5)
[2017-08-18] MEDS: NS + KCL 40 MEQ/L 1,000 ML IV SCH ×2 (16:56→21:43)
[2017-08-18] MEDS ORDERED: ACETAMINOPHEN PO PRN (17:22)
[2017-08-18] MEDS ORDERED: OXYCODONE PO PRN (17:22)
[2017-08-18] MEDS ORDERED: XOPENEX 1.25 MG/3 ML NEBULE NEB PRN (17:24)
[2017-08-18] MEDS ORDERED: BUPROPION HCL PO SCH (17:30)
[2017-08-18] MEDS ORDERED: POTASSIUM CHLORIDE PO SCH (17:30)
[2017-08-18] MEDS ORDERED: VISTARIL PO PRN (17:48)
[2017-08-18] MEDS: MORPHINE SULFATE INJ 2 MG INJ IVP PRN (17:59)
[2017-08-18] MEDS: ASPIRIN 81 MG CHEWTAB PO SCH (18:02)
[2017-08-18] MEDS: KLONOPIN TAB 1 MG PO SCH ×2 (18:32→21:30)
[2017-08-18] MEDS: PLAVIX PO SCH (18:32)
[2017-08-18] MEDS: NexIUM PO SCH (18:32)
[2017-08-18] MEDS: LASIX PO SCH ×2 (18:35→21:30)
[2017-08-18] MEDS: NEURONTIN CAP 300 MG PO SCH ×2 (18:35→21:44)
[2017-08-18] MEDS: PERCOCET TAB 5/325 MG PO PRN (19:47)
[2017-08-18] MEDS ORDERED: PATIENT'S HOME MEDICATION (Rosuvastatin Calcium [Rosuvastatin Calcium] 1 TAB) PO SCH (21:00)
[2017-08-18] MEDS: ALDACTONE TAB 25 MG PO SCH (21:31)
[2017-08-18] MEDS: ZANTAC PO SCH (21:31)
[2017-08-18] MEDS: CRESTOR TAB 10 MG PO SCH (21:31)
[2017-08-18 22:20] LABS: CKMB % 1.1 % (<4); CREATINE KINASE 283 Units/L (39-308); CREATINE KINASE MB 3.2 ng/mL (0-4.0); TROPONIN I < 0.02 ng/mL (0-1.5)
[2017-08-18] MEDS: WELLBUTRIN IR (PLAIN) PO SCH (23:40)
[2017-08-18] MEDS: K-DUR TAB 20 MEQ PO SCH (23:41)
[2017-08-19] MEDS: NS + KCL 20 MEQ/L 1,000 ML IV SCH ×4 (02:15→17:48)
[2017-08-19] MEDS: NEURONTIN CAP 300 MG PO SCH (05:06)
[2017-08-19] MEDS: MORPHINE SULFATE INJ 2 MG INJ IVP PRN ×2 (05:06→16:33)
[2017-08-19] MEDS: WELLBUTRIN IR (PLAIN) PO SCH ×3 (05:07→21:43)
[2017-08-19 05:29] LABS: BASOPHILS # (AUTO) 0.1 X10^3/uL (0.0-0.1); BASOPHILS % (AUTO) 0.6 % (0.2-1.0); EOSINOPHILS # (AUTO) 0.1 x10^3/uL (0.0-0.2); EOSINOPHILS % (AUTO) 1.1 % (0.9-2.9); HEMATOCRIT 40.9 % (42.0-54.0); HEMOGLOBIN 14.4 g/dL (13.5-18.0); LYMPHOCYTES # (AUTO) 1.9 X10^3/uL (1.3-2.9); LYMPHOCYTES % (AUTO) 21.6 % (21.0-51.0); MEAN CORPUSCULAR HEMOGLOBIN 30.7 pg (27.0-34.0); MEAN CORPUSCULAR HGB CONC 35.3 g/dL (33.0-35.0); MEAN CORPUSCULAR VOLUME 86.9 fL (80.0-100.0); MEAN PLATELET VOLUME 8.5 fL (7.4-11.0); MONOCYTES # (AUTO) 0.9 x10^3/uL (0.3-0.8); MONOCYTES % (AUTO) 10.1 % (0.0-13.0); NEUTROPHILS # (AUTO) 5.8 x10^3/uL (2.2-4.8); NEUTROPHILS % (AUTO) 66.6 % (42.0-75.0); PLATELET COUNT 227 X10^3/uL (150.0-450.0); RED BLOOD COUNT 4.71 X10^6/uL (4.7-6.0); RED CELL DISTRIBUTION WIDTH 13.1 % (11.6-16.5); WHITE BLOOD COUNT 8.7 X10^3/uL (3.6-10.0)
[2017-08-19 05:35] LABS: ALANINE AMINOTRANSFERASE 30 Units/L (12-78); ALBUMIN 3.3 g/dL (3.4-5.0); ALKALINE PHOSPHATASE 50 Units/L (46-116); ASPARTATE AMINO TRANSFERASE 28 Units/L (15-37); BLOOD UREA NITROGEN 10 mg/dL (7-18); CALCIUM 8.3 mg/dL (8.5-10.1); CARBON DIOXIDE 32.7 mmol/L (21-32); CHLORIDE 102 mmol/L (98-107); CHOL/HDL RATIO 3.3 (0.0-5.0); CHOLESTEROL 116 mg/dL (0-200); COR CA(FOR HYPOALB) 8.9 mg/dL (8.5-10.1); CREATININE 1.04 mg/dL (0.70-1.30); HDL CHOLESTEROL 35 mg/dL (40-60); SODIUM 143 mmol/L (136-145); TOTAL PROTEIN 7.2 g/dL (6.4-8.2); TRIGLYCERIDES 115 mg/dL (0-150); eGFR BLACK RACES > 60 (>60); eGFR NON BLACK RACES > 60 (>60)
[2017-08-19] MEDS: KLONOPIN TAB 1 MG PO SCH ×2 (08:43→20:54)
[2017-08-19] MEDS: NexIUM PO SCH (08:43)
[2017-08-19] MEDS: LASIX PO SCH ×2 (08:43→20:53)
[2017-08-19] MEDS: ALDACTONE TAB 25 MG PO SCH ×2 (08:43→20:53)
[2017-08-19] MEDS: K-DUR TAB 20 MEQ PO SCH ×2 (08:43→20:53)
[2017-08-19] MEDS: ASPIRIN 81 MG CHEWTAB PO SCH (08:43)
[2017-08-19] MEDS: PERCOCET TAB 5/325 MG PO PRN ×3 (08:44→19:18)
[2017-08-19] MEDS: PLAVIX PO SCH (08:44)
[2017-08-19] MEDS ORDERED: K-LYTE EFFERVESCENT PO ONE (10:52)
--- NOTE | 2017-08-19 13:36 | NM ---
Indication: Chest pain and shortness of breath Exam: V/Q lung scan. Technique: The patient was ventilated with Tc 99 M DTPA and spot images were obtained . The patient w as injected with Tc 99 Maa and spot perfusion images were obtained. Findings: There is physiologic ventilation throughout both lungs with no focal areas of increased or decreased uptake. There is homogeneous perfusion throughout both lungs with no focal defects. Impression: Low probability for a pulmonary embolus. Reported By:
[2017-08-19] MEDS: NEURONTIN TAB 600 MG PO SCH ×2 (13:55→21:00)
[2017-08-19] MEDS: ZANTAC PO SCH (20:53)
[2017-08-19] MEDS: CRESTOR TAB 10 MG PO SCH (20:54)
[2017-08-19] MEDS: SOMA TAB 350 MG PO SCH (20:54)
[2017-08-19] MEDS: ULTRAM PO PRN (23:18)
[2017-08-20] MEDS: NS + KCL 20 MEQ/L 1,000 ML IV SCH ×4 (01:01→18:25)
[2017-08-20] MEDS: PERCOCET TAB 5/325 MG PO PRN ×3 (04:33→20:42)
[2017-08-20] MEDS: NEURONTIN TAB 600 MG PO SCH ×3 (05:04→22:57)
[2017-08-20] MEDS: WELLBUTRIN IR (PLAIN) PO SCH ×3 (05:05→22:57)
[2017-08-20 05:24] LABS: BASOPHILS # (AUTO) 0.1 X10^3/uL (0.0-0.1); BASOPHILS % (AUTO) 0.7 % (0.2-1.0); EOSINOPHILS # (AUTO) 0.3 x10^3/uL (0.0-0.2); EOSINOPHILS % (AUTO) 3.1 % (0.9-2.9); HEMATOCRIT 37.7 % (42.0-54.0); HEMOGLOBIN 13.5 g/dL (13.5-18.0); LYMPHOCYTES # (AUTO) 1.4 X10^3/uL (1.3-2.9); LYMPHOCYTES % (AUTO) 15.9 % (21.0-51.0); MEAN CORPUSCULAR HEMOGLOBIN 30.7 pg (27.0-34.0); MEAN CORPUSCULAR HGB CONC 35.7 g/dL (33.0-35.0); MEAN CORPUSCULAR VOLUME 86.2 fL (80.0-100.0); MEAN PLATELET VOLUME 8.4 fL (7.4-11.0); MONOCYTES # (AUTO) 0.8 x10^3/uL (0.3-0.8); MONOCYTES % (AUTO) 9.1 % (0.0-13.0); NEUTROPHILS # (AUTO) 6.2 x10^3/uL (2.2-4.8); NEUTROPHILS % (AUTO) 71.2 % (42.0-75.0); PLATELET COUNT 198 X10^3/uL (150.0-450.0); RED BLOOD COUNT 4.38 X10^6/uL (4.7-6.0); RED CELL DISTRIBUTION WIDTH 12.9 % (11.6-16.5); WHITE BLOOD COUNT 8.7 X10^3/uL (3.6-10.0)
[2017-08-20 05:36] LABS: ALANINE AMINOTRANSFERASE 24 Units/L (12-78); ALBUMIN 3.1 g/dL (3.4-5.0); ALKALINE PHOSPHATASE 54 Units/L (46-116); ASPARTATE AMINO TRANSFERASE 20 Units/L (15-37); BLOOD UREA NITROGEN 7 mg/dL (7-18); CALCIUM 8.3 mg/dL (8.5-10.1); CARBON DIOXIDE 29.9 mmol/L (21-32); CHLORIDE 105 mmol/L (98-107); CREATININE 0.93 mg/dL (0.70-1.30); SODIUM 142 mmol/L (136-145); TOTAL PROTEIN 6.8 g/dL (6.4-8.2); eGFR BLACK RACES > 60 (>60); eGFR NON BLACK RACES > 60 (>60)
[2017-08-20] MEDS: ALDACTONE TAB 25 MG PO SCH ×2 (08:48→20:43)
[2017-08-20] MEDS: NexIUM PO SCH (08:49)
[2017-08-20] MEDS: KLONOPIN TAB 1 MG PO SCH ×2 (08:49→20:44)
[2017-08-20] MEDS: K-DUR TAB 20 MEQ PO SCH ×2 (08:49→20:43)
[2017-08-20] MEDS: PLAVIX PO SCH (08:49)
[2017-08-20] MEDS: LASIX PO SCH ×2 (08:49→20:41)
[2017-08-20] MEDS: ASPIRIN 81 MG CHEWTAB PO SCH (08:49)
[2017-08-20] MEDS: MORPHINE SULFATE INJ 2 MG INJ IVP PRN ×3 (09:30→19:38)
[2017-08-20] MEDS: ULTRAM PO PRN (09:32)
[2017-08-20 09:46] LABS: CKMB % 2.1 % (<4); CREATINE KINASE MB 3.6 ng/mL (0-4.0); TROPONIN I 0.02 ng/mL (0-1.5)
[2017-08-20] MEDS: ZANTAC PO SCH (20:41)
[2017-08-20] MEDS: CRESTOR TAB 10 MG PO SCH (20:43)
[2017-08-20] MEDS: SOMA TAB 350 MG PO SCH (20:44)
[2017-08-20] MEDS: MILK OF MAGNESIA PO PRN (22:56)
[2017-08-21] MEDS: NS + KCL 20 MEQ/L 1,000 ML IV SCH ×5 (02:31→17:48)
[2017-08-21] MEDS: PERCOCET TAB 5/325 MG PO PRN ×3 (04:42→20:51)
[2017-08-21] MEDS: NEURONTIN TAB 600 MG PO SCH ×3 (05:03→21:00)
[2017-08-21] MEDS: WELLBUTRIN IR (PLAIN) PO SCH ×3 (05:03→21:00)
[2017-08-21 05:49] LABS: BASOPHILS # (AUTO) 0.1 X10^3/uL (0.0-0.1); BASOPHILS % (AUTO) 0.7 % (0.2-1.0); EOSINOPHILS # (AUTO) 0.4 x10^3/uL (0.0-0.2); EOSINOPHILS % (AUTO) 4.4 % (0.9-2.9); HEMATOCRIT 39.4 % (42.0-54.0); HEMOGLOBIN 14.1 g/dL (13.5-18.0); LYMPHOCYTES # (AUTO) 1.8 X10^3/uL (1.3-2.9); LYMPHOCYTES % (AUTO) 19.5 % (21.0-51.0); MEAN CORPUSCULAR HEMOGLOBIN 31.3 pg (27.0-34.0); MEAN CORPUSCULAR HGB CONC 35.8 g/dL (33.0-35.0); MEAN CORPUSCULAR VOLUME 87.3 fL (80.0-100.0); MEAN PLATELET VOLUME 8.4 fL (7.4-11.0); MONOCYTES # (AUTO) 0.7 x10^3/uL (0.3-0.8); MONOCYTES % (AUTO) 8.1 % (0.0-13.0); NEUTROPHILS # (AUTO) 6.1 x10^3/uL (2.2-4.8); NEUTROPHILS % (AUTO) 67.3 % (42.0-75.0); PLATELET COUNT 204 X10^3/uL (150.0-450.0); RED BLOOD COUNT 4.51 X10^6/uL (4.7-6.0); RED CELL DISTRIBUTION WIDTH 12.8 % (11.6-16.5)
[2017-08-21 06:21] LABS: ALANINE AMINOTRANSFERASE 22 Units/L (12-78); ALBUMIN 3.3 g/dL (3.4-5.0); ALKALINE PHOSPHATASE 60 Units/L (46-116); ASPARTATE AMINO TRANSFERASE 20 Units/L (15-37); BLOOD UREA NITROGEN 8 mg/dL (7-18); CALCIUM 8.5 mg/dL (8.5-10.1); CARBON DIOXIDE 30.3 mmol/L (21-32); CHLORIDE 103 mmol/L (98-107); COR CA(FOR HYPOALB) 9.1 mg/dL (8.5-10.1); CREATININE 0.98 mg/dL (0.70-1.30); SODIUM 141 mmol/L (136-145); TOTAL PROTEIN 7.4 g/dL (6.4-8.2); eGFR BLACK RACES > 60 (>60); eGFR NON BLACK RACES > 60 (>60)
[2017-08-21] MEDS: ULTRAM PO PRN ×2 (06:41→16:30)
[2017-08-21] MEDS: LASIX PO SCH ×2 (08:30→20:52)
[2017-08-21] MEDS: ASPIRIN 81 MG CHEWTAB PO SCH (08:30)
[2017-08-21] MEDS: ALDACTONE TAB 25 MG PO SCH ×2 (08:30→20:52)
[2017-08-21] MEDS: KLONOPIN TAB 1 MG PO SCH ×2 (08:30→20:52)
[2017-08-21] MEDS: K-DUR TAB 20 MEQ PO SCH ×2 (08:30→20:52)
[2017-08-21] MEDS: NexIUM PO SCH (08:30)
[2017-08-21] MEDS: MORPHINE SULFATE INJ 2 MG INJ IVP PRN ×2 (08:45→14:54)
[2017-08-21] MEDS ORDERED: PHARMACY CONSULT - DOSE _____ XX SCH (09:00)
[2017-08-21] MEDS: PLAVIX PO SCH (09:28)
[2017-08-21] MEDS: XOPENEX 1.25 MG/3 ML NEBULE NEB PRN ×3 (09:30→17:00)
[2017-08-21] MEDS: TEFLARO 600 MG in NS 50 ML IV 50 ML IV SCH ×2 (10:03→20:57)
--- NOTE | 2017-08-21 15:30 | US ---
HISTORY: Right upper quadrant pain, nausea Study: Right upper quadrant abdominal ultrasound Comparison: None Technique: Multiple images of the right upper quadrant were obtained. Findings: The liver measures 16.2 cm. Increased echogenicity throughout the liver suggests fatty infiltration. Correlate clinically as other causes of hepatic disease may produce a similar appearance. The right k idney measures 10.0 x 6.0 x 5.6 cm. An approximate 1.5 x 1.9 x 2.0 cm cyst is noted within the right kidney. No sonographic evidence of hydronephrosis is identified. No shadowing echogenic stones are no christina within the gallbladder. Gallbladder wall thickness is at the upper limits of normal measuring yoseph roximately 3.0 mm. The common bile duct is within normal limits in caliber measuring 4.7 mm. The panc reas was not visualized. IMPRESSION: Sonographic findings of hepatic steatosis. Right renal cyst. Reported By:
[2017-08-21] MEDS: MILK OF MAGNESIA PO PRN (16:30)
[2017-08-21] MEDS: CRESTOR TAB 10 MG PO SCH (20:51)
[2017-08-21] MEDS: ZANTAC PO SCH (20:52)
[2017-08-21] MEDS: SOMA TAB 350 MG PO SCH (20:52)
[2017-08-22] MEDS: MORPHINE SULFATE INJ 2 MG INJ IVP PRN ×2 (02:21→07:47)
[2017-08-22] MEDS: WELLBUTRIN IR (PLAIN) PO SCH (05:09)
[2017-08-22] MEDS: NEURONTIN TAB 600 MG PO SCH (05:09)
[2017-08-22] MEDS: NS + KCL 20 MEQ/L 1,000 ML IV SCH (05:11)
[2017-08-22] MEDS: ULTRAM PO PRN (05:21)
[2017-08-22 05:25] LABS: BASOPHILS % (AUTO) 0.9 % (0.2-1.0); EOSINOPHILS # (AUTO) 0.3 x10^3/uL (0.0-0.2); EOSINOPHILS % (AUTO) 6.7 % (0.9-2.9); HEMATOCRIT 35.6 % (42.0-54.0); HEMOGLOBIN 12.5 g/dL (13.5-18.0); LYMPHOCYTES # (AUTO) 1.2 X10^3/uL (1.3-2.9); LYMPHOCYTES % (AUTO) 23.3 % (21.0-51.0); MEAN CORPUSCULAR HEMOGLOBIN 30.7 pg (27.0-34.0); MEAN CORPUSCULAR HGB CONC 35.2 g/dL (33.0-35.0); MEAN CORPUSCULAR VOLUME 87.2 fL (80.0-100.0); MEAN PLATELET VOLUME 8.5 fL (7.4-11.0); MONOCYTES # (AUTO) 0.5 x10^3/uL (0.3-0.8); MONOCYTES % (AUTO) 9.9 % (0.0-13.0); NEUTROPHILS % (AUTO) 59.2 % (42.0-75.0); PLATELET COUNT 164 X10^3/uL (150.0-450.0); RED BLOOD COUNT 4.09 X10^6/uL (4.7-6.0); RED CELL DISTRIBUTION WIDTH 12.7 % (11.6-16.5); WHITE BLOOD COUNT 5.1 X10^3/uL (3.6-10.0)
[2017-08-22 05:39] LABS: ALANINE AMINOTRANSFERASE 17 Units/L (12-78); ALBUMIN 2.9 g/dL (3.4-5.0); ALKALINE PHOSPHATASE 53 Units/L (46-116); ASPARTATE AMINO TRANSFERASE 14 Units/L (15-37); BLOOD UREA NITROGEN 7 mg/dL (7-18); CARBON DIOXIDE 28.1 mmol/L (21-32); CHLORIDE 105 mmol/L (98-107); COR CA(FOR HYPOALB) 8.9 mg/dL (8.5-10.1); COR NA(FOR HYPERGLY) 139 mmol/L (136-145); CREATININE 0.96 mg/dL (0.70-1.30); SODIUM 138 mmol/L (136-145); TOTAL PROTEIN 6.5 g/dL (6.4-8.2); eGFR BLACK RACES > 60 (>60); eGFR NON BLACK RACES > 60 (>60)
[2017-08-22 08:02] VITALS: BP 116/81
== END 2017-08-22 08:25 | disposition short-term general hospital (02) | DRG 313 ==
LOC: ER 09:16 → MED/SURG 13:32
PROVIDERS: ADMIT Internal Medicine; ATTEND Internal Medicine
DX: R07.2 Precordial pain (principal); E87.6 Hypokalemia; E78.2 Mixed hyperlipidemia; I12.9 Hypertensive chronic kidney disease with stage 1 through stage 4 chronic kidney disease, or unspecified chronic kidney disease; I25.10 Atherosclerotic heart disease of native coronary artery without angina pectoris; E87.1 Hypo-osmolality and hyponatremia; I48.91 Unspecified atrial fibrillation; M54.5 Low back pain; F41.8 Other specified anxiety disorders; N19 Unspecified kidney failure; R06.02 Shortness of breath; R10.13 Epigastric pain; Z95.810 Presence of automatic (implantable) cardiac defibrillator
CPT/HCPCS: 36415; 71010; 76705; 78582; 80053; 80061; 82550; 82553; 83735; 84100; 84132; 84484; 85025; 85378; 85610; 85730; 87070; 87205; 90686; 93005; 93010; 94640; 94760; 96365; 96374; 99221; 99284; A4222; Q0177; 90670; J0712; J1956; J2270

== ENCOUNTER 2017-10-20 09:42 | Emergency (ER) | payer OTHER, MEDICAID ==
[2017-10-20 09:53] VITALS: BP 130/88; BMI 32.5
--- NOTE | 2017-10-20 10:37 | DR.GENAD ---
HPI - PCP Primary Care Physician: Dr. Knowles - Complaint/Symptoms Chief Complaint Doctors Comments: Patient with chronic pain syndrome manifested by osteoarthritis, usually gets perocet monthly by his primary care physician. His physician did not write prescription before going on vacation for the holiday. Chief Complaint:: c/o chronic back and shoulder pain bilaterally and states that he takes Percocet 10 TID and has been unable to get it refilled by PCP Self Treatment fo Chief Complaint: Took motrin at home with no relief - Source History Provided: Patient - Mode of Arrival Mode of Arrival: Ambulatory - Timing Onset of Chief Complaint: 10/20/17 PMH - PMH Past Medical History: Yes Past Medical History: Anxiety, CHF, COPD, Depression, Dyslipidemia, Headaches, Hypertension, [place], Renal Disease Past Surgical History: Yes Surgical History: Angioplasty/Stents, Ortho Surgery, Other Past Surgical History Comment: shoulder surgery bilaterally, right hand surgery - Family History History of Family Medical Conditions: Yes Family Medical History: Diabetes Mellitus, Coronary Artery Disease, Heart Failure, Hypertension - Social History Do you use any recreational Drugs:: No Lives With: Alone Lives Where: Home - infectious screening Have you traveled outside the country in the last 6 months?: No ROS - Review of Systems Eyes: No Symptoms Reported ENTM: No Symptoms Reported Respiratoy: No Symptoms Reported Cardiovascular: No Symptoms Reported Gastrointestinal/Abdominal: No Symptoms Reported Genitourinary: No Symptoms Reported Neurological: No Symptoms Reported Musculoskeletal: Joint Pain Integumentary: No Symptoms Reported Hematologic/Lymphatic: No Symptoms Reported Endocrine: No Symptoms Reported Psychiatric: No Symptoms Reported All Other Systems: Reviewed and Negative PE - Vital Signs Vitals: Temperature 97.7 F Pulse Rate 95 Respiratory Rate 20 Blood Pressure [Right Arm] 116/81 Blood Pressure [Left Arm] 119/74 Blood Pressure [Standing] 103/71 Blood Pressure [Sitting] 121/76 Blood Pressure [Lying] 122/76 Blood Pressure 130/88 O2 Sat by Pulse Oximetry 97 - General Limitations: No Limitations General Appearance: Alert, In No Apparent Distress - Head Head Exam: Normal Inspection, Atraumatic - Eyes Eye exam: Normal Appearance, PERRL, EOMI - ENT ENT Exam: Normal Exam External Ear Exam: Normal External Inspection TM/Canal Exam: Bilateral Normal Nose Exam: Normal Nose Exam Mouth Exam: Normal Inspection Throat Exam: Normal Inspection - Neck Neck Exam: Normal Inspection - Chest Chest Inspection: Normal Inspection - Respiratory Respiratory Exam: Normal Lung Sounds Bilat Respiratory Exam: Bilateral Clear to Auscultation - Cardiovascular Cardiovascular Exam: Regular Rate, Normal Rhythm - Abdominal Exam Abdominal Exam: Normal Inspection Abdominal Tenderness: negative: RUQ, RLQ, LUQ, LLQ, Epigastrium, Suprapubic, Diffuse, Mild, Moderate, Severe, Other - Extremities Extremities Exam: Tenderness (right AC joint with decreased ROM) - Back Back Exam: Normal Inspection - Neurologic Neurological Exam: Alert, Oriented X3, CN II-XII Intact - Psychiatric Psychiatric Exam: Normal Affect - Skin Skin Exam: Warm, Dry, Intact - Diagnosis Discharge Problem: Arthritis - Discharge Plan Condition: Stable - Follow ups/Referrals Follow ups/Referrals: JIMI KNOWLES [Primary Care Provider] - 3 days - Instructions
== END 2017-10-20 10:53 | disposition home or self-care (01) ==
LOC: ER 09:56
DX: G89.4 Chronic pain syndrome (principal); M54.5 Low back pain; M25.511 Pain in right shoulder; M25.512 Pain in left shoulder
CPT/HCPCS: 99281; 99283

== ENCOUNTER 2018-01-29 15:57 | Observation (INO) | payer OTHER, MEDICAID ==
[2018-01-29] MEDS ORDERED: ULTRAM PO PRN (18:16)
[2018-01-29] MEDS ORDERED: OXYCODONE PO PRN (18:16)
[2018-01-29] MEDS ORDERED: ACETAMINOPHEN PO PRN (18:16)
--- NOTE | 2018-01-29 18:29 | DR.H&P ---
H&P - History & Physical for Day of: H&P Date: 01/29/18 - Chief Complaint Chief Complaint: lle edema pain and swelling, redness. pt co chest pain and sob - Allergies Allergies/Adverse Reactions: Allergies Allergy/AdvReac Type Severity Reaction Status Date / Time No Known Drug Allergies Allergy Verified 08/06/17 16:23 - History of Present Illness History of Present Illness: PT IS 57 WM DIRECT ADMIT FROM DR TORRES OFFICE WITH CO LLE EDEMA, SEVERE PAIN AND CANNOT BEAR WEIGHT. PT HAS CAD AND CHF. PT CO CP AND SOB. PT HAS BEEN TAKING PLAVIX FOR HEART DISEASE. PT HAS HTN, CHF, OA , GERD, [place]. PT ADMITTED FOR EVALUATION OF CP AND SOB AND LLE EDEMA. PLAN TO OBTAIN SERIAL CE AND EKG'S, US LLE R/O DVT. LOVENOX PROPHALAXIS - Past Medical History Past Medical History: Anxiety, CHF, COPD, Depression, Dyslipidemia, Headaches, Hypertension, [place], Renal Disease - Past Surgical History Surgical History: Angioplasty/Stents, Ortho Surgery, Other Additional Surgical History: Defibrillator - Family History Family Medical History: Diabetes Mellitus, Coronary Artery Disease, Heart Failure, Hypertension - Social History Does patient currently use any type of tobacco product: No Have you used tobacco products in the last 12 months: No Type of Tobacco Use: None Does any household member use tobacco: No Alcohol Use: None Drug Use: None - Review of Systems Constitutional: Malaise Eyes: No Symptoms Reported ENT: No Symptoms Reported Respiratory: Shortness of Breath Cardiovascular: Chest Pain, Palpitations Gastrointestinal: No Symptoms Reported Genitourinary: No Symptoms Reported Musculoskeletal: Leg Pain Skin: No Symptoms Reported Neurological: Weakness - Physical Exam Vital Signs: Blood Pressure [Right Arm] 116/81 Blood Pressure [Left Arm] 119/74 Blood Pressure [Standing] 103/71 Blood Pressure [Sitting] 121/76 Blood Pressure [Lying] 122/76 Blood Pressure 130/88 Oriented: Normal Eyes: Normal Ear: Normal Nose: Normal Throat: Normal Respiratory: RLL Diminished, LLL Diminished Cardiovascular: Edema : Normal Auscultation: Bowel Sounds: Normal Palpation: Normal Tenderness: Normal Skin: Normal Musculoskeletal: Left, Leg, Back:Thoracic, Back:Lumbar, Tender Psychiatric: Anxiety, Depression Affect: Anxious Speech Pattern: Clear, Appropriate - Assessment/Plan (1) Chest pain Status: Acute Plan: ADMIT, CE AND EKG'S. CXR, ADMISSION LABS, RESUME HOME MEDS. PAIN CONTROL , LIPID CONTROL, BP MANAGEMENT. US LLE (2) Unilateral edema of lower extremity Status: Acute (3) Sciatica Status: Acute (4) CAD (coronary artery disease) Status: Chronic (5) CHF (congestive heart failure) Status: Chronic (6) Cardiac defibrillator in place Status: Chronic (7) Essential hypertension Status: Chronic (8) GERD (gastroesophageal reflux disease) Status: Chronic
[2018-01-29 18:41] LABS: BASOPHILS # (AUTO) 0.1 X10^3/uL (0.0-0.1); BASOPHILS % (AUTO) 1.6 % (0.2-1.0); EOSINOPHILS # (AUTO) 0.1 x10^3/uL (0.0-0.2); EOSINOPHILS % (AUTO) 0.9 % (0.9-2.9); HEMATOCRIT 37.1 % (42.0-54.0); HEMOGLOBIN 13.4 g/dL (13.5-18.0); LYMPHOCYTES # (AUTO) 1.7 X10^3/uL (1.3-2.9); LYMPHOCYTES % (AUTO) 25.3 % (21.0-51.0); MEAN CORPUSCULAR HEMOGLOBIN 30.9 pg (27.0-34.0); MEAN CORPUSCULAR HGB CONC 36.2 g/dL (33.0-35.0); MEAN CORPUSCULAR VOLUME 85.4 fL (80.0-100.0); MEAN PLATELET VOLUME 7.7 fL (7.4-11.0); MONOCYTES # (AUTO) 0.6 x10^3/uL (0.3-0.8); MONOCYTES % (AUTO) 8.4 % (0.0-13.0); NEUTROPHILS # (AUTO) 4.4 x10^3/uL (2.2-4.8); NEUTROPHILS % (AUTO) 63.8 % (42.0-75.0); PLATELET COUNT 212 X10^3/uL (150.0-450.0); RED BLOOD COUNT 4.34 X10^6/uL (4.7-6.0); RED CELL DISTRIBUTION WIDTH 14.3 % (11.6-16.5); WHITE BLOOD COUNT 6.9 X10^3/uL (3.6-10.0)
--- NOTE | 2018-01-29 18:50 | RAD ---
Exam: Chest PA and lateral History: Congestive heart failure. Hypertension. Comparison: Previous chest radiograph from 08/18/2017 Findings: Stable cardiomegaly is again seen. Minimal vascular congestion is noted as well. A cardiac pacer and AICD device are again noted. Lungs are clear. No significant effusion on either side. Impression: Cardiomegaly with minimal vascular congestion. Reported By:
[2018-01-29 18:56] LABS: ALANINE AMINOTRANSFERASE 26 Units/L (12-78); ALKALINE PHOSPHATASE 45 Units/L (46-116); ASPARTATE AMINO TRANSFERASE 20 Units/L (15-37); BLOOD UREA NITROGEN 14 mg/dL (7-18); CALCIUM 7.6 mg/dL (8.5-10.1); CHLORIDE 102 mmol/L (98-107); CKMB % 0.8 % (<4); CREATINE KINASE 264 Units/L (39-308); CREATINE KINASE MB 2.2 ng/mL (0-4.0); CREATININE 1.25 mg/dL (0.70-1.30); SODIUM 141 mmol/L (136-145); TOTAL PROTEIN 7.6 g/dL (6.4-8.2); TROPONIN I < 0.02 ng/mL (0-1.5); eGFR BLACK RACES > 60 (>60); eGFR NON BLACK RACES > 60 (>60)
--- NOTE | 2018-01-29 20:09 | VAS ---
HISTORY: Left lower extremity pain and edema Study: Left lower extremity venous Doppler Comparison: None Technique: Multiple grayscale as well as spectral and color Doppler images of the left lower extremit y were obtained. Findings: Sonographic evaluation was performed from the level of the common femoral through the popliteal vein. There is normal compressibility, phasicity, and augmentation. IMPRESSION: Negative for DVT. Reported By:
[2018-01-29 20:40] VITALS: BMI 34.5
[2018-01-29] MEDS ORDERED: K-LYTE EFFERVESCENT PO ONE (20:47)
[2018-01-29] MEDS ORDERED: LASIX PO SCH (21:00)
[2018-01-29] MEDS: ASPIRIN 81 MG CHEWTAB PO SCH (21:48)
[2018-01-29] MEDS: CRESTOR TAB 10 MG PO SCH (21:48)
[2018-01-29] MEDS: ALDACTONE TAB 25 MG PO SCH (21:48)
[2018-01-29] MEDS: NEURONTIN CAP 300 MG PO SCH ×2 (21:48→22:00)
[2018-01-29] MEDS: ZANTAC PO SCH (21:48)
[2018-01-29] MEDS: SOMA TAB 350 MG PO SCH (21:48)
[2018-01-29] MEDS: KLONOPIN TAB 1 MG PO SCH (21:48)
[2018-01-30 01:50] LABS: CKMB % 0.7 % (<4); CREATINE KINASE 248 Units/L (39-308); CREATINE KINASE MB 1.7 ng/mL (0-4.0); TROPONIN I < 0.02 ng/mL (0-1.5)
[2018-01-30] MEDS: NEURONTIN CAP 300 MG PO SCH ×3 (05:41→21:04)
[2018-01-30 06:08] LABS: ALANINE AMINOTRANSFERASE 23 Units/L (12-78); ALBUMIN 3.6 g/dL (3.4-5.0); ALKALINE PHOSPHATASE 45 Units/L (46-116); ASPARTATE AMINO TRANSFERASE 16 Units/L (15-37); BLOOD UREA NITROGEN 11 mg/dL (7-18); CALCIUM 7.5 mg/dL (8.5-10.1); CHLORIDE 102 mmol/L (98-107); CKMB % 0.7 % (<4); COR NA(FOR HYPERGLY) 142 mmol/L (136-145); CREATINE KINASE 201 Units/L (39-308); CREATINE KINASE MB 1.3 ng/mL (0-4.0); CREATININE 1.03 mg/dL (0.70-1.30); SODIUM 142 mmol/L (136-145); TOTAL PROTEIN 7.6 g/dL (6.4-8.2); TROPONIN I < 0.02 ng/mL (0-1.5); eGFR BLACK RACES > 60 (>60); eGFR NON BLACK RACES > 60 (>60)
[2018-01-30 06:09] LABS: BASOPHILS % (AUTO) 0.7 % (0.2-1.0); EOSINOPHILS # (AUTO) 0.1 x10^3/uL (0.0-0.2); EOSINOPHILS % (AUTO) 1.3 % (0.9-2.9); HEMATOCRIT 38.4 % (42.0-54.0); HEMOGLOBIN 13.6 g/dL (13.5-18.0); LYMPHOCYTES # (AUTO) 1.7 X10^3/uL (1.3-2.9); LYMPHOCYTES % (AUTO) 25.2 % (21.0-51.0); MEAN CORPUSCULAR HEMOGLOBIN 30.8 pg (27.0-34.0); MEAN CORPUSCULAR HGB CONC 35.6 g/dL (33.0-35.0); MEAN CORPUSCULAR VOLUME 86.7 fL (80.0-100.0); MEAN PLATELET VOLUME 8.1 fL (7.4-11.0); MONOCYTES # (AUTO) 0.7 x10^3/uL (0.3-0.8); MONOCYTES % (AUTO) 10.5 % (0.0-13.0); NEUTROPHILS # (AUTO) 4.1 x10^3/uL (2.2-4.8); NEUTROPHILS % (AUTO) 62.3 % (42.0-75.0); PLATELET COUNT 203 X10^3/uL (150.0-450.0); RED BLOOD COUNT 4.42 X10^6/uL (4.7-6.0); RED CELL DISTRIBUTION WIDTH 14.5 % (11.6-16.5); WHITE BLOOD COUNT 6.6 X10^3/uL (3.6-10.0)
[2018-01-30] MEDS ORDERED: K-RIDER 10 MEQ/NS 100 ML 10 MEQ/100 ML BAG IV PRN (06:14)
[2018-01-30] MEDS ORDERED: POTASSIUM CHLORIDE LIQ 20 MEQ UDC PO PRN (06:14)
[2018-01-30] MEDS ORDERED: POTASSIUM CHL 60 MEQ/NS 0.45% 500 ML IV PRN (06:14)
[2018-01-30] MEDS ORDERED: POTASSIUM CHL 40 MEQ/NS 0.45% 500 ML IV PRN (06:14)
[2018-01-30] MEDS ORDERED: MAGNESIUM SULFATE 1 GM/100 mL PREMIX 1 GM/100 ML BAG IV PRN (06:14)
[2018-01-30] MEDS ORDERED: NS 100 ML IV 100 ML IV SCH (08:00)
[2018-01-30] MEDS ORDERED: MORPHINE SULFATE INJ 2 MG INJ IVP PRN (08:13)
[2018-01-30] MEDS: KLONOPIN TAB 1 MG PO SCH ×2 (08:31→21:05)
[2018-01-30] MEDS: PLAVIX PO SCH (08:31)
[2018-01-30] MEDS: NexIUM PO SCH (08:31)
[2018-01-30] MEDS: ALDACTONE TAB 25 MG PO SCH ×2 (08:31→21:15)
[2018-01-30] MEDS: ASPIRIN 81 MG CHEWTAB PO SCH (08:31)
[2018-01-30] MEDS: PULMICORT NEB TX 0.5 MG NEB SCH ×2 (08:57→21:45)
[2018-01-30] MEDS ORDERED: SPIRIVA HANDIHALER (30 DOSE) IN SCH (09:00)
[2018-01-30] MEDS: COLACE CAP 100 MG PO SCH ×2 (09:17→21:05)
[2018-01-30] MEDS: PERCOCET TAB 5/325 MG PO PRN (09:20)
[2018-01-30] MEDS: K-LYTE EFFERVESCENT PO PRN (09:28)
--- NOTE | 2018-01-30 14:01 | PCM.PROG ---
Progress Note - Progress Note for Day of Date: 01/30/18 - Subjective Subjective: 57 WM ADMITTED ON 01/29 WITH CP, SOB AND LLE EDEMA AND INTRACTABLE PAIN. PT HAS HAD IMPROVEMENT IN SOB WITH LASIX, PT CONTINUES WITH LLE EDEMA AND PAIN. PT HAD US LLE NEGATIVE FOR DVT. PT DENIES ANY KNOWN INJURY, HAS HAD SOME FALLS. REVIEWED CE AND EKG'S WITH PT. CONTINUE PAIN CONTROL, TREATMENT FOR CHF , XRAY LEFT KNEE AND ANKLE, CONTINUE BP CONTROL I & OS, CARDIAC MONITORING - Past Medical Family Social History Past Med/Fam/Surg Hx: No changes since H&P Allergies: Allergies No Known Drug Allergies Allergy (Verified 08/06/17 16:23) - Review of Systems ROS: No change since H&P - Vital Signs and I&O's Vital Signs: Temperature 98.1 F Pulse Rate [Left Brachial] 64 Pulse Rate [Left Apical] 62 Respiratory Rate 16 Blood Pressure [Right Arm] 116/81 Blood Pressure [Left Arm] 114/72 Blood Pressure [Standing] 103/71 Blood Pressure [Sitting] 121/76 Blood Pressure [Lying] 122/76 Blood Pressure 130/88 O2 Sat by Pulse Oximetry 98 Intake and Output: Intake & Output 01/28/18 01/29/18 01/30/18 01/31/18 11:59 11:59 11:59 11:59 Intake Total 1280 Balance 1280 - Physical Exam Oriented: Normal Eyes: Normal Ear: Normal Nose: Normal Throat: Normal Respiratory: Diminished Cardiovascular: Edema : Normal Auscultation: Bowel Sounds: Normal Tenderness: Normal Skin: Normal Musculoskeletal: Left, Leg, Back:Thoracic, Back:Lumbar, Tender Psychiatric: Anxiety, Depression Affect: Anxious Speech Pattern: Clear, Appropriate - Laboratory and Diagnostics Result Diagrams: 01/30/18 04:30 01/30/18 04:30 Labs: Laboratory WBC 6.6 X10^3/uL (3.6-10.0) 01/30/18 04:30 RBC 4.42 X10^6/uL (4.7-6.0) L 01/30/18 04:30 Hgb 13.6 g/dL (13.5-18.0) 01/30/18 04:30 Hct 38.4 % (42.0-54.0) L 01/30/18 04:30 MCV 86.7 fL (80.0-100.0) 01/30/18 04:30 MCH 30.8 pg (27.0-34.0) 01/30/18 04:30 MCHC 35.6 g/dL (33.0-35.0) H 01/30/18 04:30 RDW 14.5 % (11.6-16.5) 01/30/18 04:30 Plt Count 203 X10^3/uL (150.0-450.0) 01/30/18 04:30 MPV 8.1 fL (7.4-11.0) 01/30/18 04:30 Neut % (Auto) 62.3 % (42.0-75.0) 01/30/18 04:30 Lymph % (Auto) 25.2 % (21.0-51.0) 01/30/18 04:30 [place] % (Auto) 10.5 % (0.0-13.0) 01/30/18 04:30 Eos % (Auto) 1.3 % (0.9-2.9) 01/30/18 04:30 Baso % (Auto) 0.7 % (0.2-1.0) 01/30/18 04:30 Neut # (Auto) 4.1 x10^3/uL (2.2-4.8) 01/30/18 04:30 Lymph # (Auto) 1.7 X10^3/uL (1.3-2.9) 01/30/18 04:30 [place] # (Auto) 0.7 x10^3/uL (0.3-0.8) 01/30/18 04:30 Eos # (Auto) 0.1 x10^3/uL (0.0-0.2) 01/30/18 04:30 Baso # (Auto) 0.0 X10^3/uL (0.0-0.1) 01/30/18 04:30 Absolute Nucleated RBC 0.2 /100WBC 01/30/18 04:30 Sodium 142 mmol/L (136-145) 01/30/18 04:30 Corrected Sodium 142 mmol/L (136-145) 01/30/18 04:30 Potassium 2.8 mmol/L (3.5-5.1) L* 01/30/18 04:30 Chloride 102 mmol/L (98-107) 01/30/18 04:30 Carbon Dioxide 34.0 mmol/L (21-32) H 01/30/18 04:30 BUN 11 mg/dL (7-18) 01/30/18 04:30 Creatinine 1.03 mg/dL (0.70-1.30) 01/30/18 04:30 Est GFR (MDRD) Af Amer > 60 (>60) 01/30/18 04:30 Est GFR (MDRD) Non-Af > 60 (>60) 01/30/18 04:30 Glucose 114 mg/dL (65-99) H 01/30/18 04:30 Calcium 7.5 mg/dL (8.5-10.1) L 01/30/18 04:30 Corrected Calcium TNP 01/30/18 04:30 Magnesium 1.9 mg/dL (1.7-2.9) 01/29/18 18:16 Total Bilirubin 0.60 mg/dL (0.2-1.0) 01/30/18 04:30 AST 16 Units/L (15-37) 01/30/18 04:30 ALT 23 Units/L (12-78) 01/30/18 04:30 Alkaline Phosphatase 45 Units/L (46-116) L 01/30/18 04:30 Creatine Kinase 201 Units/L (39-308) 01/30/18 04:30 CK-MB (CK-2) 1.3 ng/mL (0-4.0) 01/30/18 04:30 CK/CKMB % Calc 0.7 % (<4) 01/30/18 04:30 Troponin I < 0.02 ng/mL (0-1.5) 01/30/18 04:30 B-Natriuretic Peptide 183 pg/mL (0-79) H 01/29/18 18:18 Total Protein 7.6 g/dL (6.4-8.2) 01/30/18 04:30 Albumin 3.6 g/dL (3.4-5.0) 01/30/18 04:30 Globulin 4.0 g/dL (2.5-4.5) 01/30/18 04:30 Albumin/Globulin Ratio 0.9 Ratio (1.1-2.1) L 01/30/18 04:30 - Plan (1) Chest pain Status: Acute Plan: REVIEWED CE AND EKG'S WITH PT. CXR, AM,. PAIN CONTROL, LIPID CONTROL, BP MANAGEMENT. US LLE- NEGATIVE FOR DVT (2) Unilateral edema of lower extremity Status: Acute Plan: PAIN CONTROL, LLE ELEVATION. XRAY LEFT ANKLE AND KNEE (3) Sciatica Status: Acute (4) CAD (coronary artery disease) Status: Chronic (5) CHF (congestive heart failure) Status: Chronic (6) Cardiac defibrillator in place Status: Chronic (7) Essential hypertension Status: Chronic (8) GERD (gastroesophageal reflux disease) Status: Chronic
[2018-01-30] MEDS: LASIX PO SCH ×2 (15:04→21:06)
[2018-01-30 15:12] LABS: BILIRUBIN,URINE NEGATIVE (NEGATIVE); BLOOD/HEMOGLOBIN,URINE NEGATIVE (NEGATIVE); GLUCOSE, URINE NEGATIVE (NEGATIVE); KETONES,URINE NEGATIVE (NEGATIVE); LEUKOCYTE ESTERASE ,URINE NEGATIVE (NEGATIVE); NITRITES,URINE NEGATIVE (NEGATIVE); PROTEIN,URINE 1+ (NEGATIVE); UROBILINOGEN,URINE NORMAL (NORMAL)
[2018-01-30 15:17] LABS: APPEARANCE,URINE CLEAR (CLEAR); COLOR,URINE YELLOW (YELLOW)
[2018-01-30 15:19] LABS: BACTERIA,URINE NEGATIVE /HPF (NEGATIVE); RBC,URINE NONE SEEN /HPF (NONE SEEN); SQUAMOUS EPITHELIAL CELL,UR FEW /HPF (NEGATIVE)
--- NOTE | 2018-01-30 15:38 | RAD ---
HISTORY: Left ankle pain and swelling. Study: Three-view series, left ankle joint. Comparison: None. Findings: Mild bimalleolar edema seen. There is a small ankle joint effusion. There is a small anteri or calcaneal spur observed. No acute cortical disruption or dislocation can be identified. The ankle mortise remains well aligned. No significant soft tissue swelling or injury can be seen. The visua lized portions of the talus and calcaneus are unremarkable. IMPRESSION: Mild bimalleolar soft tissue swelling edema. Small ankle joint effusion. No acute fracture or acute bony injury observed. Small calcaneal spur. Reported By:
--- NOTE | 2018-01-30 15:48 | RAD ---
HISTORY: Knee Pain. Study: Complete two-view series of the left knee joint. Comparison: None available. Findings: No acute fracture, subluxation, or dislocation is identified. The medial and lateral tibiofemoral co mpartments appear unremarkable without loss of significant joint space. The lateral radiograph fails to demonstrate a visible joint effusion. Patellofemoral compartment is unremarkable in appearance. No lytic or bone forming lesions are seen. No high-grade osteochondral defects are observed. No unexp ected radiopaque foreign bodies are seen. There is no evidence for significant degenerative arthrosis . No focal joint erosions are seen, either. IMPRESSION: 1. Negative left knee joint exam. Reported By:
[2018-01-30] MEDS: LOVENOX INJ 40 MG SYR SC SCH (16:31)
[2018-01-30] MEDS: ZANTAC PO SCH (21:03)
[2018-01-30] MEDS: CRESTOR TAB 10 MG PO SCH (21:05)
[2018-01-30] MEDS: SOMA TAB 350 MG PO SCH (21:06)
[2018-01-31] MEDS: NEURONTIN CAP 300 MG PO SCH ×2 (06:11→13:22)
[2018-01-31] MEDS: PERCOCET TAB 5/325 MG PO PRN ×3 (06:12→14:29)
[2018-01-31 06:26] LABS: BASOPHILS % (AUTO) 0.5 % (0.2-1.0); EOSINOPHILS # (AUTO) 0.1 x10^3/uL (0.0-0.2); EOSINOPHILS % (AUTO) 1.1 % (0.9-2.9); HEMATOCRIT 38.8 % (42.0-54.0); HEMOGLOBIN 14.1 g/dL (13.5-18.0); LYMPHOCYTES # (AUTO) 1.4 X10^3/uL (1.3-2.9); MEAN CORPUSCULAR HEMOGLOBIN 31.2 pg (27.0-34.0); MEAN CORPUSCULAR HGB CONC 36.5 g/dL (33.0-35.0); MEAN CORPUSCULAR VOLUME 85.6 fL (80.0-100.0); MEAN PLATELET VOLUME 8.2 fL (7.4-11.0); MONOCYTES # (AUTO) 0.6 x10^3/uL (0.3-0.8); MONOCYTES % (AUTO) 9.4 % (0.0-13.0); NEUTROPHILS # (AUTO) 4.6 x10^3/uL (2.2-4.8); PLATELET COUNT 205 X10^3/uL (150.0-450.0); RED BLOOD COUNT 4.53 X10^6/uL (4.7-6.0); RED CELL DISTRIBUTION WIDTH 14.3 % (11.6-16.5); WHITE BLOOD COUNT 6.8 X10^3/uL (3.6-10.0)
[2018-01-31 06:37] LABS: ALANINE AMINOTRANSFERASE 15 Units/L (12-78); ALBUMIN 3.5 g/dL (3.4-5.0); ALKALINE PHOSPHATASE 50 Units/L (46-116); ASPARTATE AMINO TRANSFERASE 14 Units/L (15-37); BLOOD UREA NITROGEN 10 mg/dL (7-18); CALCIUM 8.3 mg/dL (8.5-10.1); CARBON DIOXIDE 33.9 mmol/L (21-32); CHLORIDE 104 mmol/L (98-107); COR NA(FOR HYPERGLY) 143 mmol/L (136-145); CREATININE 1.02 mg/dL (0.70-1.30); SODIUM 142 mmol/L (136-145); TOTAL PROTEIN 7.3 g/dL (6.4-8.2); eGFR BLACK RACES > 60 (>60); eGFR NON BLACK RACES > 60 (>60)
[2018-01-31] MEDS ORDERED: SOLU-Medrol 40 MG VIAL IVP ONE (08:22)
[2018-01-31] MEDS: KLONOPIN TAB 1 MG PO SCH (08:46)
[2018-01-31] MEDS: NexIUM PO SCH (08:46)
[2018-01-31] MEDS: ASPIRIN 81 MG CHEWTAB PO SCH (08:46)
[2018-01-31] MEDS: ALDACTONE TAB 25 MG PO SCH (08:46)
[2018-01-31] MEDS: LASIX PO SCH (08:46)
[2018-01-31] MEDS: LOVENOX INJ 40 MG SYR SC SCH (08:47)
[2018-01-31] MEDS: PLAVIX PO SCH (08:47)
[2018-01-31] MEDS ORDERED: K-LYTE EFFERVESCENT PO SCH (09:00)
[2018-01-31] MEDS: PULMICORT NEB TX 0.5 MG NEB SCH (09:21)
[2018-01-31] MEDS: K-LYTE EFFERVESCENT PO PRN (10:24)
[2018-01-31 14:19] VITALS: BP 118/79
== END 2018-01-31 15:25 | disposition home or self-care (01) ==
LOC: MED/SURG 15:57
PROVIDERS: ADMIT Internal Medicine; ATTEND Internal Medicine
DX: R22.42 Localized swelling, mass and lump, left lower limb (principal); R07.89 Other chest pain; R06.02 Shortness of breath; M19.072 Primary osteoarthritis, left ankle and foot; I25.10 Atherosclerotic heart disease of native coronary artery without angina pectoris; I50.9 Heart failure, unspecified; J44.9 Chronic obstructive pulmonary disease, unspecified; F41.9 Anxiety disorder, unspecified; F32.9 Major depressive disorder, single episode, unspecified; I10 Essential (primary) hypertension; M54.42 Lumbago with sciatica, left side; Z95.810 Presence of automatic (implantable) cardiac defibrillator; K21.9 Gastro-esophageal reflux disease without esophagitis; R94.31 Abnormal electrocardiogram [ECG] [EKG]; I51.7 Cardiomegaly
CPT/HCPCS: 36415; 71046; 73564; 73610; 80053; 81001; 82550; 82553; 83735; 83880; 84132; 84484; 85025; 93005; 93010; 93971; 94640; 94760; 97535; A4222; G8979; G8980; G8990; G8991; G0378; J1650; J2270; J2920; J7626

== ENCOUNTER 2018-03-28 16:36 | Observation (INO) ==
[2018-03-28] MEDS ORDERED: NITROSTAT SL PRN (20:47)
[2018-03-28] MEDS ORDERED: ASPIRIN PO ONE (20:47)
--- NOTE | 2018-03-28 20:56 | DR.GENAD ---
HPI - PCP Primary Care Physician: EASTON MCKEON - Complaint/Symptoms Chief Complaint Doctors Comments: Patient is complaining of left sided chest pain with pain radiating down his left arm with weakness, [place] and no energy for the past three weeks getting worst today. States he has problems setting up and when he walks his legs gives out and he is weak and almost falls. States he has had a heart attack x2 Jun 21, 2007 and 15 January 2011. States he has had stents x7 at [facility] and 2-3 at [facility] with his last episode 07 Aug 2017 at [facility] they gave him three more stents. State he stopped smoking and drinking after his second heart attack. states his pain is 8-9 of 10. He is complaining of dysuria and states he has problems with his prostate and he is taking medicines for that. He denies headache but has been having dizziness at times. States he takes Depokoate for the headaches. states he is a patient of Dr. Dela Cruz and last saw his PA about 1 1/2 months ago. states he has not had an aspirin nor a nitroglycerin today. He denies swelling of hands or feet and he denies wheezing. Chief Complaint:: PT STATES " I AM ON THE HEART TRANSPLANT LIST AND I HAVE BEEN HAVING MOTOR PROMBLEMS AND FALLLING AND NUMBRESS TO MY EXT'S AND PT STATES I KNOW I AM GOING TO GET ADMITTED AND I MAY NOT MAKE IT OUT ". PT DENIES SOB, OR SOB AT THIS TIME BUT " I KNOW BY TONIGHT I WILL HAVE IT" . Self Treatment fo Chief Complaint: PT C/O THAT THIS STARTED 3 WEEKS AGO AND THAT HER CALLED HIS INS CO NURSE AND SHE TOLD HIM TO COME TO THE ER,,, BR - Nurses notes reviewed Nurses Notes Review: Yes - Source History Provided: Patient - Mode of Arrival Mode of Arrival: Ambulatory - Timing Onset of Chief Complaint: 03/11/18 Came on: Gradually - Duration Duration: Intermittent How lon Duration: Weeks - Location Location: left sided chest pain - Severity Severity: Moderate - Modifying Factors Worsens:: nothing Improves:: nothing PMH - PMH Past Medical History: Yes Past Medical History: Anxiety, CHF, COPD, Depression, Dyslipidemia, Headaches, Hypertension, MS, Renal Disease Past Surgical History: Yes Surgical History: Angioplasty/Stents Past Surgical History Comment: SHOULDER , STENTS TIMES 7, DEFIBRILATOR, - Family History History of Family Medical Conditions: Yes Family Medical History: Diabetes Mellitus, Coronary Artery Disease, Heart Failure, Hypertension - Social History Does patient currently use any type of tobacco product: No Have you used tobacco products in the last 12 months: No Type of Tobacco Use: None Does any household member use tobacco: No Alcohol Use: None Do you use any recreational Drugs:: No Lives With: Mom Lives Where: Home - infectious screening In the last 2 months have you had wt loss of >10#?: NO Have you had fever, night sweats or hemotysis?: No Have you traveled outside the country in the last 6 months?: No Isolation: Standard ROS - Review of Systems Constitutional: No Symptoms Reported, Weakness, Fatigue. negative: See HPI, Chills, Diaphoresis, Fever, Malaise, Irritable, Loss of Appetite, Other Eyes: No Symptoms Reported. negative: See HPI, Eye Pain, Blurred Vision, Tearing, Discharge, Photophobia, Diplopia, Other ENTM: No Symptoms Reported. negative: See HPI, Ear Pain, Ear Discharge, Pulling on Ears, Hearing Loss, Nose Pain, Nose Discharge, Epistaxis, Nose Congestion, Mouth Pain, Mouth Swelling, Loose Teeth, Drooling, Throat Pain, Throat Swelling, Ear Foreign Body Respiratoy: No Symptoms Reported. negative: See HPI, Productive Cough, Non- Productive Cough, Moist Cough, Dry Cough, Hacking Cough, Barking Cough, Brassy Cough, Orthopnea, Short of Breath, Stridor, Wheezing, Hemoptysis, Other Cardiovascular: No Symptoms Reported, Chest Pain. negative: See HPI, Edema, Palpitations, Syncope, Cyanosis, Skin Mottling, Other Gastrointestinal/Abdominal: No Symptoms Reported. negative: See HPI, Abdominal Pain, Constipation, Diarrhea, Nausea, Vomiting, Food Intolerance, Other Genitourinary: No Symptoms Reported, Dysuria. negative: See HPI, Discharge, Frequency, Hematuria, Pain, Bleeding, Other Neurological: No Symptoms Reported, Weakness, Dizziness, Problems Walking. negative: See HPI, Anxiety, Depressed, Emotional Problems, Headache, Numbness, Paresthesia, Pre-existing Deficit, Seizure, Tingling, Tremors, Speech Problem, Other Musculoskeletal: No Symptoms Reported, Left, Arm Integumentary: No Symptoms Reported. negative: See HPI, Change in Color, Change in Hair/Nails, Dryness, Lesions, Lumps, Rash, Itching, Wound, Bruises, Juandice, Other Hematologic/Lymphatic: No Symptoms Reported. negative: See HPI, Anemia, Blood Clots, Easy Bleeding, Easy Bruising, Swollen Glands, Lymphadenopathy, Other Endocrine: No Symptoms Reported. negative: See HPI, Excessive Sweating, Flushing, Intolerance to Cold, Intolerance to Heat, Increased Hunger, Increased Thirst, Increased Urine, Unexplained Weight Gain, Unexplained Weight Loss, Failure to Thrive, Decreased Appetite, Other Psychiatric: No Symptoms Reported. negative: See HPI, Anxiety, Depression, Hallucinations, Excessive crying, Suicidal, Other PE - General Limitations: No Limitations General Appearance: Alert, In Distress (slight) - Head Head Exam: Normal Inspection, Atraumatic, Normocephalic - Eyes Eye exam: Normal Appearance, PERRL, EOMI. negative: Scleral Icterus, Conjunctival Injection, Nystagmus, Miosis, Mydrasis, Periorbital Swelling, Periorbital Tenderness, Other - ENT ENT Exam: Normal Exam, Normal Oropharynx, Normal External Ear Exam, Mucous Membranes Moist, TM's Normal Bilaterally External Ear Exam: Normal External Inspection TM/Canal Exam: Bilateral Normal Nose Exam: Normal Nose Exam Mouth Exam: Normal Inspection. negative: Drooling, Trismus, Lip Swelling, Tongue Elevation, Tongue Swelling, Laceration, Other Throat Exam: Normal Inspection - Neck Neck Exam: Normal Inspection, Full ROM, Trachea Midline. negative: Tenderness, Meningismus, Lymphadenopathy, Thyromegaly, Other - Chest Chest Inspection: Normal Inspection, Symmetric Chest Wall Rise, Tenderness ( xiphoid tenderness on palpation) - Respiratory Respiratory Exam: Normal Lung Sounds Bilat Respiratory Exam: Bilateral Clear to Auscultation - Cardiovascular Cardiovascular Exam: Regular Rate, Normal Rhythm, Normal Heart Sounds, Systolic Murmur - Abdominal Exam Abdominal Exam: Normal Inspection, Normal Bowel Sounds, Soft, Tenderness ( epigastric tenderness; no guarding or rebound) Abdominal Tenderness: Epigastrium, Mild - Extremities Extremities Exam: Normal Inspection, Full ROM, Normal Capillary Refill. negative: Tenderness, Edema, Joint Swelling, Calf Tenderness, Other - Back Back Exam: Normal Inspection, Full ROM. negative: Tenderness, (R) CVA Tenderness, (L) CVA Tenderness, Muscle Spasm, Paraspinal Tenderness, Vertebral Tenderness, Rashes, (R) Sciatic Notch Tenderness, (L) Sciatic Notch Tendern, (R ) Straight Leg Raise, (L) Straight Leg Raise, Other - Neurologic Neurological Exam: Alert, Oriented X3, CN II-XII Intact, Normal Gait, Reflexes Normal. negative: Motor Sensory Deficit, Other - Psychiatric Psychiatric Exam: Normal Affect, Normal Mood. negative: Depressed, Agitated, Anxious, Flat Affect, Manic, Homicidal Ideation, Suicidal Ideation, Other - Skin Skin Exam: Warm, Dry, Intact, Normal Color - Vital Signs Vitals: Temperature 98 F Pulse Rate [Left] 49 Pulse Rate 59 Respiratory Rate 18 Blood Pressure [Right Arm] 109/63 Blood Pressure [Left Arm] 118/79 Blood Pressure [Standing] 103/71 Blood Pressure [Sitting] 121/76 Blood Pressure [Lying] 122/76 Blood Pressure 102/64 O2 Sat by Pulse Oximetry 94 Course - Consultation Called: 00:46 Call Returned: 00:46 (Dr. Newman to admit) - Education/Counseling Education/Counseling: Patient, Family Educated On: Treatment, Diagnosis, Needs for Follow Up ROR - Labs Reviewed Laboratory Results Reviewed?: Yes (All labs and x-ray results reviewed and discussed with patient) Result Diagrams: 03/28/18 20:57 03/28/18 20:57 - XRAY XRAY Interpreted by: Radiologist (CTA chest: No pulmonary embolus, chrokic findings), Self (CXR: No acuate cardiopulmonary disease) - EKG Rate: 52 [place]: Normal Rhythm: NSR Block: None Hypertrophy: None ST: Old, Lat, Infarct - Labs Reviewed Laboratory: WBC 7.6 X10^3/uL (3.6-10.0) 03/28/18 20:57 RBC 5.02 X10^6/uL (4.7-6.0) 03/28/18 20:57 Hgb 15.7 g/dL (13.5-18.0) 03/28/18 20:57 Hct 44.2 % (42.0-54.0) 03/28/18 20:57 MCV 88.0 fL (80.0-100.0) 03/28/18 20:57 MCH 31.2 pg (27.0-34.0) 03/28/18 20:57 MCHC 35.5 g/dL (33.0-35.0) H 03/28/18 20:57 RDW 12.8 % (11.6-16.5) 03/28/18 20:57 Plt Count 201 X10^3/uL (150.0-450.0) 03/28/18 20:57 MPV 8.0 fL (7.4-11.0) 03/28/18 20:57 Neut % (Auto) 67.8 % (42.0-75.0) 03/28/18 20:57 Lymph % (Auto) 21.2 % (21.0-51.0) 03/28/18 20:57 [place] % (Auto) 8.1 % (0.0-13.0) 03/28/18 20:57 Eos % (Auto) 0.9 % (0.9-2.9) 03/28/18 20:57 Baso % (Auto) 2.0 % (0.2-1.0) H 03/28/18 20:57 Neut # (Auto) 5.2 x10^3/uL (2.2-4.8) H 03/28/18 20:57 Lymph # (Auto) 1.6 X10^3/uL (1.3-2.9) 03/28/18 20:57 [place] # (Auto) 0.6 x10^3/uL (0.3-0.8) 03/28/18 20:57 Eos # (Auto) 0.1 x10^3/uL (0.0-0.2) 03/28/18 20:57 Baso # (Auto) 0.2 X10^3/uL (0.0-0.1) H 03/28/18 20:57 Absolute Nucleated RBC 0.0 /100WBC 03/28/18 20:57 INR Target Range - 03/28/18 20:57 INR 1.05 (0.8-1.3) 03/28/18 20:57 APTT 30.9 SECONDS (22.9-36.5) 03/28/18 20:57 PTT Comment - 03/28/18 20:57 D-Dimer 795 ng/mL (0-400) H* 03/28/18 20:57 Sodium 138 mmol/L (136-145) 03/28/18 20:57 Corrected Sodium 139 mmol/L (136-145) 03/28/18 20:57 Potassium 3.8 mmol/L (3.5-5.1) 03/28/18 20:57 Chloride 98 mmol/L (98-107) 03/28/18 20:57 Carbon Dioxide 31.4 mmol/L (21-32) 03/28/18 20:57 BUN 11 mg/dL (7-18) 03/28/18 20:57 Creatinine 1.25 mg/dL (0.70-1.30) 03/28/18 20:57 Est GFR (MDRD) Af Amer > 60 (>60) 03/28/18 20:57 Est GFR (MDRD) Non-Af > 60 (>60) 03/28/18 20:57 Glucose 136 mg/dL (65-99) H 03/28/18 20:57 Calcium 9.1 mg/dL (8.5-10.1) 03/28/18 20:57 Corrected Calcium TNP 03/28/18 20:57 Magnesium 2.4 mg/dL (1.7-2.9) 03/28/18 20:57 Total Bilirubin 1.00 mg/dL (0.2-1.0) 03/28/18 20:57 AST 26 Units/L (15-37) 03/28/18 20:57 ALT 22 Units/L (12-78) 03/28/18 20:57 Alkaline Phosphatase 48 Units/L (46-116) 03/28/18 20:57 Creatine Kinase 499 Units/L (39-308) H 03/28/18 23:10 CK-MB (CK-2) 1.5 ng/mL (0-4.0) 03/28/18 23:10 CK/CKMB % Calc 0.3 % (<4) 03/28/18 23:10 Troponin I < 0.02 ng/mL (0-1.5) 03/28/18 23:10 Total Protein 8.3 g/dL (6.4-8.2) H 03/28/18 20:57 Albumin 4.1 g/dL (3.4-5.0) 03/28/18 20:57 Globulin 4.2 g/dL (2.5-4.5) 03/28/18 20:57 Albumin/Globulin Ratio 1.0 Ratio (1.1-2.1) L 03/28/18 20:57 - Diagnosis Discharge Problem: Chest pain, rule out acute myocardial infarction, Coronary artery disease, Stented coronary artery, Chronic kidney disease, Sinus bradycardia, Hyperglycemia, Hepatic cyst - Discharge Plan Disposition: ADMITTED INPATIENT Condition: Stable - Follow ups/Referrals Follow ups/Referrals: JIMI KNOWLES [Primary Care Provider] - 3 days - Instructions
[2018-03-28 21:08] LABS: BASOPHILS # (AUTO) 0.2 X10^3/uL (0.0-0.1); EOSINOPHILS # (AUTO) 0.1 x10^3/uL (0.0-0.2); EOSINOPHILS % (AUTO) 0.9 % (0.9-2.9); HEMATOCRIT 44.2 % (42.0-54.0); HEMOGLOBIN 15.7 g/dL (13.5-18.0); LYMPHOCYTES # (AUTO) 1.6 X10^3/uL (1.3-2.9); LYMPHOCYTES % (AUTO) 21.2 % (21.0-51.0); MEAN CORPUSCULAR HEMOGLOBIN 31.2 pg (27.0-34.0); MEAN CORPUSCULAR HGB CONC 35.5 g/dL (33.0-35.0); MONOCYTES # (AUTO) 0.6 x10^3/uL (0.3-0.8); MONOCYTES % (AUTO) 8.1 % (0.0-13.0); NEUTROPHILS # (AUTO) 5.2 x10^3/uL (2.2-4.8); NEUTROPHILS % (AUTO) 67.8 % (42.0-75.0); PLATELET COUNT 201 X10^3/uL (150.0-450.0); RED BLOOD COUNT 5.02 X10^6/uL (4.7-6.0); RED CELL DISTRIBUTION WIDTH 12.8 % (11.6-16.5); WHITE BLOOD COUNT 7.6 X10^3/uL (3.6-10.0)
[2018-03-28] MEDS ORDERED: ASPIRIN ONE (21:15)
--- NOTE | 2018-03-28 21:15 | RAD ---
HISTORY: 57-year-old male with chest pain. History of CHF and COPD. Study: Frontal view of the chest. Comparison: Chest radiographs 01/29/2018 Findings: Support devices are stable. The trachea is midline. The cardiac silhouette is stably enlarged low lung volumes and prominent per ihilar lung markings/interstitium. The lungs are clear without focal consolidation, effusion or pneu mothorax. Soft tissues are unremarkable. Osseous structures are unremarkable. IMPRESSION: 1. No acute cardiopulmonary disease. Reported By:
[2018-03-28 21:25] LABS: BLOOD UREA NITROGEN 11 mg/dL (7-18); CALCIUM 9.1 mg/dL (8.5-10.1); CARBON DIOXIDE 31.4 mmol/L (21-32); CHLORIDE 98 mmol/L (98-107); COR NA(FOR HYPERGLY) 139 mmol/L (136-145); CREATININE 1.25 mg/dL (0.70-1.30); SODIUM 138 mmol/L (136-145); TROPONIN I < 0.02 ng/mL (0-1.5); eGFR NON BLACK RACES > 60 (>60)
[2018-03-28 21:29] LABS: ALANINE AMINOTRANSFERASE 22 Units/L (12-78); ALBUMIN 4.1 g/dL (3.4-5.0); ALKALINE PHOSPHATASE 48 Units/L (46-116); ASPARTATE AMINO TRANSFERASE 26 Units/L (15-37); CKMB % 0.3 % (<4); CREATINE KINASE 526 Units/L (39-308); CREATINE KINASE MB 1.8 ng/mL (0-4.0); MAGNESIUM 2.4 mg/dL (1.7-2.9); TOTAL PROTEIN 8.3 g/dL (6.4-8.2)
[2018-03-28] MEDS: NS 1000 ML 1,000 ML IV SCH (21:41)
[2018-03-28] MEDS ORDERED: NS 100 ML IV 100 ML IV ONE (22:25)
[2018-03-28] MEDS ORDERED: MORPHINE SULFATE INJ 2 MG INJ IVP ONE (22:55)
--- NOTE | 2018-03-28 23:09 | CT ---
CT ANGIOGRAPHY OF THE CHEST CLINICAL HISTORY: 57-year-old male with elevated D-dimer. History of CHF. COMPARISON: Ventilation and perfusion exam 08/19/2017. CT chest 08/06/2017. TECHNIQUE: CT angiogram of the chest was performed following the uncomplicated administration of 100 mL Omnipaque 300 intravenous contrast as per routine pulmonary embolus protocol. Coronal and Sagittal reformats provided. MIP reformats are submitted for review. FINDINGS: No pulmonary embolus is seen. There is no thoracic aortic dissection. Cardiomegaly without pericardial effusion. Bilateral chest wall AICD. There is no axillary or mediast inal lymphadenopathy. Evaluation of the lung parenchyma demonstrates no pulmonary nodules, masses, or airspace opacities. B ibasilar subsegmental dependent atelectasis with scattered pneumatoceles within the left lower lobe, stable. The trachea and mainstem bronchi are patent. There is no pleural effusion or pneumothorax. Stable low-attenuation cystic lesion within the right lobe of the liver. Remaining imaged upper abdom en is unremarkable. The arteriovascular structures are within normal limits. Soft tissues are normal. The osseous structures are intact without fracture or malalignment. IMPRESSION: 1. No pulmonary embolus. 2. Chronic findings as above. Reported By:
[2018-03-28] MEDS ORDERED: MORPHINE SULFATE INJ 2 MG INJ ONE (23:12)
[2018-03-28 23:41] LABS: CKMB % 0.3 % (<4); CREATINE KINASE 499 Units/L (39-308); CREATINE KINASE MB 1.5 ng/mL (0-4.0); TROPONIN I < 0.02 ng/mL (0-1.5)
[2018-03-29] MEDS ORDERED: PERCOCET TAB 5/325 MG ONE (03:16)
[2018-03-29] MEDS ORDERED: PERCOCET TAB 5/325 MG PO ONE (03:17)
[2018-03-29] MEDS: NEURONTIN CAP 300 MG PO SCH ×3 (05:48→21:13)
[2018-03-29] MEDS: NS 1000 ML 1,000 ML IV SCH ×2 (06:27→17:11)
[2018-03-29 06:37] LABS: CKMB % 0.3 % (<4); CREATINE KINASE 457 Units/L (39-308); CREATINE KINASE MB 1.5 ng/mL (0-4.0); TROPONIN I < 0.02 ng/mL (0-1.5)
[2018-03-29 06:38] LABS: CHOL/HDL RATIO 4.2 (0.0-5.0)
[2018-03-29] MEDS: ASPIRIN PO SCH (08:40)
[2018-03-29] MEDS: LOVENOX INJ 40 MG SYR SC SCH (08:41)
[2018-03-29] MEDS: PROTONIX INJ 40 MG VIAL IVP SCH (08:41)
[2018-03-29] MEDS: LASIX PO SCH ×2 (08:41→21:14)
[2018-03-29] MEDS: LANOXIN PO SCH (08:41)
[2018-03-29] MEDS: ENTRESTO 24/26 MG TAB PO SCH ×2 (08:41→21:13)
--- NOTE | 2018-03-29 08:56 | RAD ---
Examination: Portable AP chest History: SOB Comparison reference 03/28/2018 Findings: Stable normal heart size with pacing device. Lungs clear. No evidence for CHF, pleural flui d or pneumothorax. Impression: No change; no acute findings. Reported By:
[2018-03-29 11:05] LABS: CKMB % 0.3 % (<4); CREATINE KINASE 442 Units/L (39-308); CREATINE KINASE MB 1.2 ng/mL (0-4.0); TROPONIN I < 0.02 ng/mL (0-1.5)
[2018-03-29] MEDS: PERCOCET TAB 5/325 MG PO PRN ×2 (12:01→17:11)
[2018-03-29 15:00] LABS: CKMB % 0.3 % (<4); CREATINE KINASE 384 Units/L (39-308); TROPONIN I < 0.02 ng/mL (0-1.5)
[2018-03-29 15:48] VITALS: BMI 32.0
[2018-03-29 18:28] LABS: CREATINE KINASE 349 Units/L (39-308); CREATINE KINASE MB < 1.0 ng/mL (0-4.0); TROPONIN I < 0.02 ng/mL (0-1.5)
[2018-03-29 18:33] LABS: CKMB % 0.3 % (<4)
[2018-03-29] MEDS ORDERED: ROSUVASTATIN PO SCH (21:00)
[2018-03-29] MEDS: CRESTOR TAB 10 MG PO SCH (21:13)
[2018-03-30] MEDS: PERCOCET TAB 5/325 MG PO PRN ×5 (00:50→22:24)
[2018-03-30] MEDS: MORPHINE SULFATE INJ 2 MG INJ IVP PRN (04:33)
[2018-03-30] MEDS: NEURONTIN CAP 300 MG PO SCH ×3 (05:26→21:47)
[2018-03-30] MEDS: NS 1000 ML 1,000 ML IV SCH ×2 (05:27→16:52)
[2018-03-30 06:02] LABS: BASOPHILS # (AUTO) 0.1 X10^3/uL (0.0-0.1); EOSINOPHILS # (AUTO) 0.1 x10^3/uL (0.0-0.2); EOSINOPHILS % (AUTO) 1.1 % (0.9-2.9); HEMATOCRIT 41.1 % (42.0-54.0); HEMOGLOBIN 14.8 g/dL (13.5-18.0); LYMPHOCYTES # (AUTO) 1.8 X10^3/uL (1.3-2.9); LYMPHOCYTES % (AUTO) 27.3 % (21.0-51.0); MEAN CORPUSCULAR HEMOGLOBIN 31.3 pg (27.0-34.0); MEAN CORPUSCULAR VOLUME 87.1 fL (80.0-100.0); MEAN PLATELET VOLUME 8.5 fL (7.4-11.0); MONOCYTES # (AUTO) 0.6 x10^3/uL (0.3-0.8); MONOCYTES % (AUTO) 9.2 % (0.0-13.0); NEUTROPHILS # (AUTO) 4.1 x10^3/uL (2.2-4.8); NEUTROPHILS % (AUTO) 61.4 % (42.0-75.0); PLATELET COUNT 162 X10^3/uL (150.0-450.0); RED BLOOD COUNT 4.72 X10^6/uL (4.7-6.0); RED CELL DISTRIBUTION WIDTH 12.7 % (11.6-16.5); WHITE BLOOD COUNT 6.6 X10^3/uL (3.6-10.0)
[2018-03-30 06:25] LABS: ALANINE AMINOTRANSFERASE 18 Units/L (12-78); ALBUMIN 3.4 g/dL (3.4-5.0); ALKALINE PHOSPHATASE 43 Units/L (46-116); ASPARTATE AMINO TRANSFERASE 25 Units/L (15-37); BLOOD UREA NITROGEN 6 mg/dL (7-18); CALCIUM 8.2 mg/dL (8.5-10.1); CARBON DIOXIDE 26.7 mmol/L (21-32); CHLORIDE 104 mmol/L (98-107); CREATININE 1.09 mg/dL (0.70-1.30); SODIUM 140 mmol/L (136-145); TOTAL PROTEIN 7.1 g/dL (6.4-8.2); eGFR NON BLACK RACES > 60 (>60)
[2018-03-30] MEDS: ASPIRIN PO SCH (08:02)
[2018-03-30] MEDS: PROTONIX INJ 40 MG VIAL IVP SCH (08:02)
[2018-03-30] MEDS: ENTRESTO 24/26 MG TAB PO SCH ×2 (08:02→20:39)
[2018-03-30] MEDS: LASIX PO SCH ×2 (08:02→20:39)
[2018-03-30] MEDS: LOVENOX INJ 40 MG SYR SC SCH (08:10)
[2018-03-30] MEDS: LANOXIN PO SCH (09:26)
--- NOTE | 2018-03-30 14:05 | DR.H&P ---
H&P - History & Physical for Day of: H&P Date: 03/29/18 - Chief Complaint Chief Complaint: CHEST PAIN - History of Present Illness History of Present Illness: IS A 57 YEAR OLD PATIENT OF WHO PRESENTED TO THE EMERGENCY ROOM WITH LEFT SIDED CHEST PAIN. PATIENT REPORTS THAT PAIN IS LOCATED ON THE LEFT SIDE OF THE CHEST AND RADIATES DOWN HIS LEFT ARM. HE REPORTS WEAKNESS AND NUMBNESS TO EXTREMITIES AT TIMES THAT HAS GOTTEN WORSE OVER THE PAST THREE WEEKS. PATIENT REPORTS AN EXTENSIVE CARDIAC HISTORY THAT INCLUDES A MYOCARDIAL INFARCTION X 2, MULTIPLE STENTS, AND BYPASS. ASSOCIATED SYMPTOMS INCLUDE DIZZINESS, AND DYSURIA. ON ARRIVAL, VITALS WERE 98.0 -59-18-96%-102/64. LABS WERE OBTAINED. ABNORMAL LAB VALUES INCLUDE THE FOLLOWING : D-DIMER 795, GLUCOSE 136, CREATINE KINASE 526, TOTAL PROTEIN 8.3, TRIGLYCERIDES 198. EKG REVEALED SINUS RHYTHM WITH HR 54. CHEST XRAY REVEALED NO ACUTE CARDIOPULMONARY DISEAESE. A CHEST CTA WAS OBTAINED TO RULE OUT PULMONARY EMBOLISM AND REVEALED NO PULMONARY EMBOLUS. PATIENT WAS ADMITTED FOR FURTHER EVALUATION AND TREATMENT. WE WILL OBTAIN SERIAL CARDIAC ENZYMES AND EKGS. OTHERWISE, WE WILL FOLLOW UP WITH AM LABS AND CONTINUE TO MONITOR PATIENT. - Past Medical History Past Medical History: Anxiety, CHF, COPD, Depression, Dyslipidemia, Headaches, Hypertension, [place], Renal Disease - Past Surgical History Surgical History: Angioplasty/Stents, Other Additional Surgical History: Defibrillator - Family History Family Medical History: Diabetes Mellitus, Coronary Artery Disease, Sudden Cardiac , Hypertension - Social History Does patient currently use any type of tobacco product: No Have you used tobacco products in the last 12 months: No Type of Tobacco Use: Cigarettes How many years tobacco product used: 38 Does any household member use tobacco: No Alcohol Use: None Drug Use: Prescription Drugs - Medications Home Medications: No Known Drug Allergies Allergy (Verified 03/28/18 16:37) - Review of Systems Constitutional: Weakness Eyes: No Symptoms Reported ENT: No Symptoms Reported Respiratory: Shortness of Breath Cardiovascular: Chest Pain Gastrointestinal: No Symptoms Reported Genitourinary: No Symptoms Reported Musculoskeletal: No Symptoms Reported Neurological: Weakness, Numbness - Physical Exam Vital Signs: Temperature 98.5 F Pulse Rate [Left] 58 Pulse Rate 56 Respiratory Rate 20 Blood Pressure [Right Arm] 110/66 Blood Pressure [Left Arm] 104/58 Blood Pressure [Standing] 103/71 Blood Pressure [Sitting] 121/76 Blood Pressure [Lying] 122/76 Blood Pressure 102/64 O2 Sat by Pulse Oximetry 95 Oriented: Normal Ear: Normal Nose: Normal Throat: Normal Respiratory: Diminished Throughout Cardiovascular: Normal. negative: S3, S4, Murmur : Normal Auscultation: Bowel Sounds: Normal Palpation: Normal Tenderness: Normal Skin: Normal Musculoskeletal: Normal Psychiatric: Normal Mood Description: Calm Affect: Normal Speech Pattern: Clear - Assessment/Plan (1) Chest pain, rule out acute myocardial infarction Status: Acute Plan: SERIAL CARDIAC ENZYMES AND EKG, SUPPLEMENTAL OXYGEN, CONTINUE TO MONITOR - Allergies Allergies/Adverse Reactions: Allergies Allergy/AdvReac Type Severity Reaction Status Date / Time No Known Drug Allergies Allergy Verified 03/28/18 16:37
[2018-03-30] MEDS: CRESTOR TAB 10 MG PO SCH (20:39)
[2018-03-30] MEDS: KLONOPIN TAB 1 MG PO SCH (21:10)
--- NOTE | 2018-03-30 21:29 | PCM.PROG ---
Progress Note - Progress Note for Day of Date: 03/30/18 - Subjective Subjective: WAS ADMITTED FOR CHEST PAIN, RULE OUT MYOCARDIAL INFARCTION. TODAY, HE IS ALERT AND ORIENTED, LYING IN BED ON MORNING ROUNDS. HE DENIES CHEST PAIN THIS MORNING. HE DOES COMPLAINT OF BILATERAL LEG PAIN AND GENERALIZED WEAKNESS. ON EXAMINATION, HEART IS REGULAR IN RATE AND RHYTHM. BILATERAL LUNGS ARE NOTED WITH DIMINISHED LUNG SOUNDS THROUGHOUT. ABDOMEN IS ROUND, SOFT, AND NON-TENDER WITH NORMAL BOWEL SOUNDS NOTED IN ALL QUADRANTS. HE IS NOTED WITH WEAKNESS TO BILATERAL LOWER EXTREMITIES. HIS VITALS THIS MORNING ARE 97.7-55-40-100%-159/74. CREATINE KINASE 349, OTHERWISE HE IS HEMODYNAMICALLY STABLE. TODAY, WE WILL INCREASE HIS IV FLUIDS TO 125ML/HR FOR TREATMENT OF RHABDOMYOLYSIS. OTHERWISE, WE WILL FOLLOW UP WITH AM LABS AND CONTINUE TO MONITOR PATIENT. - Past Medical Family Social History Past Med/Fam/Surg Hx: No changes since H&P Allergies: Allergies No Known Drug Allergies Allergy (Verified 03/28/18 16:37) - Review of Systems ROS: No change since H&P - Vital Signs and I&O's Vital Signs: Temperature 98.6 F Pulse Rate [Left] 52 Pulse Rate 56 Respiratory Rate 20 Blood Pressure [Right Arm] 116/77 Blood Pressure [Left Arm] 98/57 Blood Pressure [Standing] 103/71 Blood Pressure [Sitting] 121/76 Blood Pressure [Lying] 122/76 Blood Pressure 102/64 O2 Sat by Pulse Oximetry 98 Intake and Output: Intake & Output 03/28/18 03/29/18 03/30/18 03/31/18 11:59 11:59 11:59 11:59 Intake Total 820 / 820 2770 / 2770 1220 / 1220 Balance 820 / 820 2770 / 2770 1220 / 1220 - Physical Exam Oriented: Normal Eyes: Normal Ear: Normal Nose: Normal Throat: Normal Cardiovascular: Normal. negative: S3, S4, Murmur : Normal Auscultation: Bowel Sounds: Normal Palpation: Normal Tenderness: Normal Skin: Normal Musculoskeletal: Right, Left, Leg, Tender Psychiatric: Normal Mood Description: Calm Affect: Normal Speech Pattern: Clear, Appropriate - Laboratory and Diagnostics Result Diagrams: 03/30/18 05:15 03/30/18 05:15 Labs: Laboratory WBC 6.6 X10^3/uL (3.6-10.0) 03/30/18 05:15 RBC 4.72 X10^6/uL (4.7-6.0) 03/30/18 05:15 Hgb 14.8 g/dL (13.5-18.0) 03/30/18 05:15 Hct 41.1 % (42.0-54.0) L 03/30/18 05:15 MCV 87.1 fL (80.0-100.0) 03/30/18 05:15 MCH 31.3 pg (27.0-34.0) 03/30/18 05:15 MCHC 36.0 g/dL (33.0-35.0) H 03/30/18 05:15 RDW 12.7 % (11.6-16.5) 03/30/18 05:15 Plt Count 162 X10^3/uL (150.0-450.0) 03/30/18 05:15 MPV 8.5 fL (7.4-11.0) 03/30/18 05:15 Neut % (Auto) 61.4 % (42.0-75.0) 03/30/18 05:15 Lymph % (Auto) 27.3 % (21.0-51.0) 03/30/18 05:15 [place] % (Auto) 9.2 % (0.0-13.0) 03/30/18 05:15 Eos % (Auto) 1.1 % (0.9-2.9) 03/30/18 05:15 Baso % (Auto) 1.0 % (0.2-1.0) 03/30/18 05:15 Neut # (Auto) 4.1 x10^3/uL (2.2-4.8) 03/30/18 05:15 Lymph # (Auto) 1.8 X10^3/uL (1.3-2.9) 03/30/18 05:15 [place] # (Auto) 0.6 x10^3/uL (0.3-0.8) 03/30/18 05:15 Eos # (Auto) 0.1 x10^3/uL (0.0-0.2) 03/30/18 05:15 Baso # (Auto) 0.1 X10^3/uL (0.0-0.1) 03/30/18 05:15 Absolute Nucleated RBC 0.1 /100WBC 03/30/18 05:15 INR Target Range - 03/28/18 20:57 INR 1.05 (0.8-1.3) 03/28/18 20:57 APTT 30.9 SECONDS (22.9-36.5) 03/28/18 20:57 PTT Comment - 03/28/18 20:57 D-Dimer 795 ng/mL (0-400) H* 03/28/18 20:57 Sodium 140 mmol/L (136-145) 03/30/18 05:15 Corrected Sodium TNP 03/30/18 05:15 Potassium 3.5 mmol/L (3.5-5.1) 03/30/18 05:15 Chloride 104 mmol/L (98-107) 03/30/18 05:15 Carbon Dioxide 26.7 mmol/L (21-32) 03/30/18 05:15 BUN 6 mg/dL (7-18) L 03/30/18 05:15 Creatinine 1.09 mg/dL (0.70-1.30) 03/30/18 05:15 Est GFR (MDRD) Af Amer > 60 (>60) 03/30/18 05:15 Est GFR (MDRD) Non-Af > 60 (>60) 03/30/18 05:15 Glucose 101 mg/dL (65-99) H 03/30/18 05:15 Calcium 8.2 mg/dL (8.5-10.1) L 03/30/18 05:15 Corrected Calcium TNP 03/30/18 05:15 Magnesium 2.4 mg/dL (1.7-2.9) 03/28/18 20:57 Total Bilirubin 0.80 mg/dL (0.2-1.0) 03/30/18 05:15 AST 25 Units/L (15-37) 03/30/18 05:15 ALT 18 Units/L (12-78) 03/30/18 05:15 Alkaline Phosphatase 43 Units/L (46-116) L 03/30/18 05:15 Creatine Kinase 349 Units/L (39-308) H 03/29/18 17:54 CK-MB (CK-2) < 1.0 ng/mL (0-4.0) 03/29/18 17:54 CK/CKMB % Calc 0.3 % (<4) 03/29/18 17:54 Troponin I < 0.02 ng/mL (0-1.5) 03/29/18 17:54 Total Protein 7.1 g/dL (6.4-8.2) 03/30/18 05:15 Albumin 3.4 g/dL (3.4-5.0) 03/30/18 05:15 Globulin 3.7 g/dL (2.5-4.5) 03/30/18 05:15 Albumin/Globulin Ratio 0.9 Ratio (1.1-2.1) L 03/30/18 05:15 Triglycerides 198 mg/dL (0-150) H 03/29/18 05:06 Cholesterol 133 mg/dL (0-200) 03/29/18 05:06 LDL Cholesterol, Calc 61 mg/dL (0-100) 03/29/18 05:06 HDL Cholesterol 32 mg/dL (40-60) L 03/29/18 05:06 Cholesterol/HDL Ratio 4.2 (0.0-5.0) 03/29/18 05:06 Digoxin 0.70 ng/mL (0.9-2) L 03/28/18 23:10 - Plan (1) Chest pain, rule out acute myocardial infarction Status: Acute Plan: SERIAL CARDIAC ENZYMES AND EKG, SUPPLEMENTAL OXYGEN, CONTINUE TO MONITOR (2) Rhabdomyolysis Status: Acute Qualifiers: Rhabdomyolysis type: non-traumatic Qualified Code(s): M62.82 - Rhabdomyolysis Plan: NORMAL SALINE AT 125ML/HR
[2018-03-31] MEDS: NS 1000 ML 1,000 ML IV SCH ×3 (04:59→21:22)
[2018-03-31] MEDS: PERCOCET TAB 5/325 MG PO PRN ×4 (05:00→21:58)
[2018-03-31] MEDS: NEURONTIN CAP 300 MG PO SCH ×3 (05:00→21:22)
[2018-03-31 05:41] LABS: ALANINE AMINOTRANSFERASE 17 Units/L (12-78); ALBUMIN 3.2 g/dL (3.4-5.0); ALKALINE PHOSPHATASE 40 Units/L (46-116); ASPARTATE AMINO TRANSFERASE 16 Units/L (15-37); BLOOD UREA NITROGEN 6 mg/dL (7-18); CALCIUM 8.3 mg/dL (8.5-10.1); CARBON DIOXIDE 27.2 mmol/L (21-32); CHLORIDE 106 mmol/L (98-107); COR CA(FOR HYPOALB) 8.9 mg/dL (8.5-10.1); CREATININE 0.95 mg/dL (0.70-1.30); SODIUM 141 mmol/L (136-145); TOTAL PROTEIN 6.7 g/dL (6.4-8.2); eGFR NON BLACK RACES > 60 (>60)
[2018-03-31 06:09] LABS: BASOPHILS # (AUTO) 0.1 X10^3/uL (0.0-0.1); EOSINOPHILS # (AUTO) 0.2 x10^3/uL (0.0-0.2); EOSINOPHILS % (AUTO) 2.2 % (0.9-2.9); HEMATOCRIT 41.7 % (42.0-54.0); HEMOGLOBIN 15.1 g/dL (13.5-18.0); LYMPHOCYTES # (AUTO) 2.1 X10^3/uL (1.3-2.9); MEAN CORPUSCULAR HEMOGLOBIN 31.3 pg (27.0-34.0); MEAN CORPUSCULAR HGB CONC 36.3 g/dL (33.0-35.0); MEAN CORPUSCULAR VOLUME 86.2 fL (80.0-100.0); MEAN PLATELET VOLUME 8.2 fL (7.4-11.0); MONOCYTES # (AUTO) 0.6 x10^3/uL (0.3-0.8); MONOCYTES % (AUTO) 8.7 % (0.0-13.0); NEUTROPHILS # (AUTO) 4.2 x10^3/uL (2.2-4.8); NEUTROPHILS % (AUTO) 59.1 % (42.0-75.0); PLATELET COUNT 159 X10^3/uL (150.0-450.0); RED BLOOD COUNT 4.84 X10^6/uL (4.7-6.0); RED CELL DISTRIBUTION WIDTH 12.7 % (11.6-16.5); WHITE BLOOD COUNT 7.2 X10^3/uL (3.6-10.0)
[2018-03-31 07:34] LABS: PLATELET MORPHOLOGY COMMENT NORMAL (NORMAL)
[2018-03-31] MEDS: KLONOPIN TAB 1 MG PO SCH ×2 (08:50→20:48)
[2018-03-31] MEDS: LASIX PO SCH ×2 (08:50→20:48)
[2018-03-31] MEDS: ASPIRIN PO SCH (08:50)
[2018-03-31] MEDS: PROTONIX INJ 40 MG VIAL IVP SCH (08:50)
[2018-03-31] MEDS: LANOXIN PO SCH (08:51)
[2018-03-31] MEDS: ENTRESTO 24/26 MG TAB PO SCH ×2 (08:52→20:47)
[2018-03-31] MEDS: LOVENOX INJ 40 MG SYR SC SCH (08:52)
[2018-03-31] MEDS: MORPHINE SULFATE INJ 2 MG INJ IVP PRN (13:37)
--- NOTE | 2018-03-31 13:57 | PCM.PROG ---
Progress Note - Progress Note for Day of Date: 03/31/18 - Subjective Subjective: WAS ADMITTED FOR CHEST PAIN, RULE OUT MYOCARDIAL INFARCTION. TODAY, HE IS ALERT AND ORIENTED, LYING IN BED ON MORNING ROUNDS. HE DENIES CHEST PAIN THIS MORNING. HE DOES COMPLAINT OF BILATERAL LEG PAIN AND GENERALIZED WEAKNESS. PT STATES PRIOR TO ER VISIT HE CONSULTED WITH [facility] NURSE WHOM REFERRED HIM TO ED FOR NEURO EVALUATION DUE TO LOWER EXTREMITY WEAKNESS, AND "LEGS GIVING OUT". PT HAS PMH OF CAD, STATES SOB AND CP ARE STABLE. PLAN TO ADMINISTER IV SOLU MEDROL, CT T AND L SPINE. PHYSICAL THERAPY CONSULT. - Past Medical Family Social History Past Med/Fam/Surg Hx: No changes since H&P Allergies: Allergies No Known Drug Allergies Allergy (Verified 03/28/18 16:37) - Review of Systems ROS: No change since H&P - Vital Signs and I&O's Vital Signs: Temperature 98.0 F Pulse Rate [Left] 63 Pulse Rate 63 Respiratory Rate 20 Blood Pressure [Right Arm] 112/61 Blood Pressure [Left Arm] 123/67 Blood Pressure [Standing] 103/71 Blood Pressure [Sitting] 121/76 Blood Pressure [Lying] 122/76 Blood Pressure 102/64 O2 Sat by Pulse Oximetry 98 Intake and Output: Intake & Output 03/29/18 03/30/18 03/31/18 04/01/18 11:59 11:59 11:59 11:59 Intake Total 820 / 820 2770 / 2770 4400 / 4400 Output Total 1000 / 1000 Balance 820 / 820 2770 / 2770 3400 / 3400 - Physical Exam Oriented: Normal Eyes: Normal Ear: Normal Nose: Normal Throat: Normal Cardiovascular: Normal, Edema : Normal Auscultation: Bowel Sounds: Normal Tenderness: Normal Skin: Normal Musculoskeletal: Right, Left, Leg, Back:Thoracic, Back:Lumbar, Tender, Motor Deficit, Sensory Deficit, Instability Psychiatric: Normal Mood Description: Calm Affect: Normal Speech Pattern: Clear, Appropriate - Laboratory and Diagnostics Result Diagrams: 03/31/18 05:17 03/31/18 05:17 Labs: Laboratory WBC 7.2 X10^3/uL (3.6-10.0) 03/31/18 05:17 RBC 4.84 X10^6/uL (4.7-6.0) 03/31/18 05:17 Hgb 15.1 g/dL (13.5-18.0) 03/31/18 05:17 Hct 41.7 % (42.0-54.0) L 03/31/18 05:17 MCV 86.2 fL (80.0-100.0) 03/31/18 05:17 MCH 31.3 pg (27.0-34.0) 03/31/18 05:17 MCHC 36.3 g/dL (33.0-35.0) H 03/31/18 05:17 RDW 12.7 % (11.6-16.5) 03/31/18 05:17 Plt Count 159 X10^3/uL (150.0-450.0) 03/31/18 05:17 Plt Count Comment Adequate (ADEQUATE) 03/31/18 05:17 MPV 8.2 fL (7.4-11.0) 03/31/18 05:17 Neut % (Auto) 59.1 % (42.0-75.0) 03/31/18 05:17 Lymph % (Auto) 29.0 % (21.0-51.0) 03/31/18 05:17 [place] % (Auto) 8.7 % (0.0-13.0) 03/31/18 05:17 Eos % (Auto) 2.2 % (0.9-2.9) 03/31/18 05:17 Baso % (Auto) 1.0 % (0.2-1.0) 03/31/18 05:17 Neut # (Auto) 4.2 x10^3/uL (2.2-4.8) 03/31/18 05:17 Lymph # (Auto) 2.1 X10^3/uL (1.3-2.9) 03/31/18 05:17 [place] # (Auto) 0.6 x10^3/uL (0.3-0.8) 03/31/18 05:17 Eos # (Auto) 0.2 x10^3/uL (0.0-0.2) 03/31/18 05:17 Baso # (Auto) 0.1 X10^3/uL (0.0-0.1) 03/31/18 05:17 Absolute Nucleated RBC 0.1 /100WBC 03/31/18 05:17 Plt Morphology Comment Normal (NORMAL) 03/31/18 05:17 RBC Morphology Normal (NORMAL) 03/31/18 05:17 INR Target Range - 03/28/18 20:57 INR 1.05 (0.8-1.3) 03/28/18 20:57 APTT 30.9 SECONDS (22.9-36.5) 03/28/18 20:57 PTT Comment - 03/28/18 20:57 D-Dimer 795 ng/mL (0-400) H* 03/28/18 20:57 Sodium 141 mmol/L (136-145) 03/31/18 05:17 Corrected Sodium TNP 03/31/18 05:17 Potassium 3.6 mmol/L (3.5-5.1) 03/31/18 05:17 Chloride 106 mmol/L (98-107) 03/31/18 05:17 Carbon Dioxide 27.2 mmol/L (21-32) 03/31/18 05:17 BUN 6 mg/dL (7-18) L 03/31/18 05:17 Creatinine 0.95 mg/dL (0.70-1.30) 03/31/18 05:17 Est GFR (MDRD) Af Amer > 60 (>60) 03/31/18 05:17 Est GFR (MDRD) Non-Af > 60 (>60) 03/31/18 05:17 Glucose 99 mg/dL (65-99) 03/31/18 05:17 Calcium 8.3 mg/dL (8.5-10.1) L 03/31/18 05:17 Corrected Calcium 8.9 mg/dL (8.5-10.1) 03/31/18 05:17 Magnesium 2.4 mg/dL (1.7-2.9) 03/28/18 20:57 Total Bilirubin 0.50 mg/dL (0.2-1.0) 03/31/18 05:17 AST 16 Units/L (15-37) 03/31/18 05:17 ALT 17 Units/L (12-78) 03/31/18 05:17 Alkaline Phosphatase 40 Units/L (46-116) L 03/31/18 05:17 Creatine Kinase 349 Units/L (39-308) H 03/29/18 17:54 CK-MB (CK-2) < 1.0 ng/mL (0-4.0) 03/29/18 17:54 CK/CKMB % Calc 0.3 % (<4) 03/29/18 17:54 Troponin I < 0.02 ng/mL (0-1.5) 03/29/18 17:54 Total Protein 6.7 g/dL (6.4-8.2) 03/31/18 05:17 Albumin 3.2 g/dL (3.4-5.0) L 03/31/18 05:17 Globulin 3.5 g/dL (2.5-4.5) 03/31/18 05:17 Albumin/Globulin Ratio 0.9 Ratio (1.1-2.1) L 03/31/18 05:17 Triglycerides 198 mg/dL (0-150) H 03/29/18 05:06 Cholesterol 133 mg/dL (0-200) 03/29/18 05:06 LDL Cholesterol, Calc 61 mg/dL (0-100) 03/29/18 05:06 HDL Cholesterol 32 mg/dL (40-60) L 03/29/18 05:06 Cholesterol/HDL Ratio 4.2 (0.0-5.0) 03/29/18 05:06 Digoxin 0.70 ng/mL (0.9-2) L 03/28/18 23:10 - Plan (1) Weakness Status: Acute Plan: CONTINUE CARDIAC MONITORING, BP AND LIPID CONTROL. I &OS. CT T AND L SPINE, IV STEROIDS. PAIN CONTROL, PT CONSULT. CASE MANAGEMENT CONSULT FOR POSSIBLE REHAB THERAPY (2) Paresthesia of bilateral legs Status: Acute (3) Chest pain Status: Acute Plan: CONTROLLED, SERIAL CE AND EKGS COLLECTED ON ADMISSION (4) CAD (coronary artery disease) Status: Chronic (5) Essential hypertension Status: Chronic (6) CHF (congestive heart failure) Status: Chronic (7) COPD (chronic obstructive pulmonary disease) Status: Chronic (8) Sciatica Status: Acute
[2018-03-31] MEDS: SOLU-Medrol 125 MG VIAL IVP SCH ×2 (14:48→21:22)
--- NOTE | 2018-03-31 16:24 | CT ---
HISTORY: Weakness and unsteady gait. CVA symptoms. Study: CT brain without contrast Comparison: Head CT examination dated 08/06/2017. Technique: Multiple axial images of the brain were obtained from the skull base to the vertex without administra tion of IV contrast. Findings: No acute intraparenchymal hemorrhage or mass can be identified. No extra-axial fluid brandi ections are seen. Atherosclerosis in the basilar artery and vertebral artery is stable. No alteratio n in the attenuation of the brain parenchyma can be identified to suggest acute or subacute ischemic change. The ventricular system is symmetric and nondilated. The extracranial structures are grossly unremarkable. If symptoms persist, MR imaging suggested. IMPRESSION: 1. No acute intracranial process or changes identified. Reported By:
--- NOTE | 2018-03-31 16:33 | CT ---
Exam: CT of the lumbar spine History: 57-year-old male with mid back pain and unsteady gait Comparison: None Technique: Axial imaging was performed through the lumbar spine without administering intravenous con trast. Sagittal and coronal reformations were generated. Automated exposure control techniques were u sed for this exam. Findings: On the sagittal imaging, lumbar vertebral bodies are normally aligned. No offset is identified. Mild loss of anterior vertebral body height is seen at the T11 level. Mild narrowing of the L5-S1 disc spa ce is seen. The other lumbar disc spaces are maintained. At the L3-4 and L4-5 level, a combination of posterior disc bulging and bilateral facet joint hypertr ophic changes result in mild degree of bilateral neural foraminal compromise. No other significant de generative disc disease is seen at the other lumbar levels. Impression: 1. Mild degenerative disc disease the L3-4 and L4-5 level with mild bilateral neural foraminal compro mise. Reported By:
--- NOTE | 2018-03-31 16:51 | CT ---
Exam: CT of the thoracic spine History: 57-year-old male with mid back pain. Comparison: None Technique: Axial imaging was performed through the thoracic spine. Sagittal and coronal reformations were generated. Automated exposure control techniques were used with this exam. Findings: On the sagittal imaging, vertebral bodies are normally aligned with no offset identified. Mild loss o f anterior vertebral body height is seen at the T11 level. Age of this finding is indeterminate howev er. In the upper thoracic spine, minimal anterior spurring is present. In addition there is mild narr owing of several thoracic disc spaces. Spinal canal and neural foramina are patent throughout the tho racic spine. No significant disc bulge/protrusion is noted at any thoracic level. Impression: 1. Mild loss of anterior vertebral body height is noted at the T11 level. Age of this finding is inde terminate however. 2. Mild degenerative changes are seen in the mid and upper thoracic spine. Reported By:
[2018-03-31] MEDS: CRESTOR TAB 10 MG PO SCH (20:46)
[2018-04-01] MEDS ORDERED: COLACE CAP 100 MG PO PRN (01:09)
[2018-04-01] MEDS: PERCOCET TAB 5/325 MG PO PRN ×3 (02:14→11:54)
[2018-04-01] MEDS: SOLU-Medrol 125 MG VIAL IVP SCH (05:12)
[2018-04-01] MEDS: NEURONTIN CAP 300 MG PO SCH (05:12)
[2018-04-01] MEDS: ENTRESTO 24/26 MG TAB PO SCH (09:19)
[2018-04-01] MEDS: KLONOPIN TAB 1 MG PO SCH (09:19)
[2018-04-01] MEDS: LASIX PO SCH (09:19)
[2018-04-01] MEDS: LANOXIN PO SCH (09:20)
[2018-04-01] MEDS: LOVENOX INJ 40 MG SYR SC SCH (09:22)
[2018-04-01] MEDS: PROTONIX INJ 40 MG VIAL IVP SCH (09:23)
[2018-04-01] MEDS: ASPIRIN PO SCH (09:23)
[2018-04-01] MEDS: NS 1000 ML 1,000 ML IV SCH (10:25)
[2018-04-01 11:52] VITALS: BP 111/58
== END 2018-04-01 12:50 | disposition home or self-care (01) ==
LOC: MED/SURG 16:36 → ER 16:36 → MED/SURG 03-29 01:23
PROVIDERS: ADMIT Internal Medicine; ATTEND Internal Medicine
DX: R00.1 Bradycardia, unspecified; I10 Essential (primary) hypertension; R94.31 Abnormal electrocardiogram [ECG] [EKG]; E11.65 Type 2 diabetes mellitus with hyperglycemia; F41.8 Other specified anxiety disorders; R07.89 Other chest pain; M62.82 Rhabdomyolysis; M54.30 Sciatica, unspecified side; R51 Headache; F32.89 Other specified depressive episodes; R20.2 Paresthesia of skin; I50.9 Heart failure, unspecified; I25.10 Atherosclerotic heart disease of native coronary artery without angina pectoris; N18.9 Chronic kidney disease, unspecified; E78.2 Mixed hyperlipidemia; J44.9 Chronic obstructive pulmonary disease, unspecified
CPT/HCPCS: 36415; 70450; 71010; 71045; 71275; 72128; 72131; 80053; 80061; 80162; 82550; 82553; 83735; 84484; 85025; 85378; 85610; 85730; 93005; 93010; 94760; 96365; 96367; 96374; 97166; 99284; A4216; A4222; C9113; G0378; J1650; J2270; J2930; J7030; J7050

== ENCOUNTER 2019-10-19 18:30 | Inpatient (IN) ==
[2019-10-19 18:38] VITALS: BMI 28.6
[2019-10-19 19:50] LABS: BASOPHILS # (AUTO) 0.1 X10^3/uL (0.0-0.1); BASOPHILS % (AUTO) 1.1 % (0.2-1.0); EOSINOPHILS # (AUTO) 0.2 x10^3/uL (0.0-0.2); EOSINOPHILS % (AUTO) 3.1 % (0.9-2.9); HEMATOCRIT 43.6 % (42.0-54.0); HEMOGLOBIN 15.3 g/dL (13.5-18.0); LYMPHOCYTES # (AUTO) 1.6 X10^3/uL (1.3-2.9); MEAN CORPUSCULAR HEMOGLOBIN 31.2 pg (27.0-34.0); MEAN CORPUSCULAR VOLUME 89.1 fL (80.0-100.0); MEAN PLATELET VOLUME 7.5 fL (7.4-11.0); MONOCYTES # (AUTO) 0.6 x10^3/uL (0.3-0.8); MONOCYTES % (AUTO) 8.2 % (0.0-13.0); NEUTROPHILS # (AUTO) 4.4 x10^3/uL (2.2-4.8); NEUTROPHILS % (AUTO) 64.6 % (42.0-75.0); PLATELET COUNT 189 X10^3/uL (150.0-450.0); RED BLOOD COUNT 4.89 X10^6/uL (4.7-6.0); RED CELL DISTRIBUTION WIDTH 12.4 % (11.6-16.5); WHITE BLOOD COUNT 6.7 X10^3/uL (3.6-10.0)
[2019-10-19 20:11] LABS: BLOOD UREA NITROGEN 8 mg/dL (7-18); CALCIUM 8.5 mg/dL (8.5-10.1); CARBON DIOXIDE 28.7 mmol/L (21-32); CHLORIDE 102 mmol/L (98-107); CREATININE 0.99 mg/dL (0.70-1.30); SODIUM 140 mmol/L (136-145); TROPONIN I < 0.02 ng/mL (0-1.5); eGFR NON BLACK RACES > 60 (>60)
[2019-10-19 20:14] LABS: ALANINE AMINOTRANSFERASE 12 Units/L (12-78); ALBUMIN 3.7 g/dL (3.4-5.0); ALKALINE PHOSPHATASE 40 Units/L (46-116); ASPARTATE AMINO TRANSFERASE 15 Units/L (15-37); CREATINE KINASE 99 Units/L (39-308); TOTAL PROTEIN 7.7 g/dL (6.4-8.2)
[2019-10-19] MEDS ORDERED: ZOFRAN INJ 4 MG VIAL IV ONE (20:19)
[2019-10-19] MEDS ORDERED: MORPHINE SULFATE INJ 2 MG INJ IVP ONE (20:19)
--- NOTE | 2019-10-19 20:20 | DR.CP ---
HPI Time Seen Time Seen by Provider: 10/19/19 20:17 PCP Primary Care Physician: EASTON HPI Comment HPI Comment: Pt w/EF 25% in with intermittent 7/10 chest "tightness" extending to the breastbone for the past three days; no n/v/le edema; he used ntg w/o relief; worse with cough; he started with coughing up "thick" amounts of blood six days ago with sob; no wheezing; he had hemoptysis years ago with spontaneous resolution and no definitive dx; his last cath was Aug 11 and reportedly benign; he dose have 7 stents s/p IN x 2. Complaint Chief Complaint:: PT. C/O CHEST PAINS, TIGHTENING IN CHEST, SHORTNESS OF BREATH AND COUGHING UP BLOOD TINGED SPUTUM X 1 WEEK. PT. STATES HE HAS HAD FEVER AND CH ILLS. Reviewed Nurses Notes Review: Yes Source History Provided: Patient Mode of Arrival Mode of Arrival: Ambulatory Timing Onset of Chief Complaint: 10/14/19 PMH PMH Past Medical History: Yes Past Medical History: Anxiety, CHF, COPD, Coronary Artery Disease, Depression, Dyslipidemia, Headaches, Hypertension, [place] and Renal Disease Past Medical History Comment: PE Past Surgical History: Yes Surgical History: Angioplasty/Stents and Ortho Surgery Family History History of Family Medical Conditions: Yes Family Medical History: Diabetes Mellitus, Coronary Artery Disease, Sudden Cardiac and Hypertension Social History Does patient currently use any type of tobacco product: No Have you used tobacco products in the last 12 months: No Type of Tobacco Use: None Does any household member use tobacco: No Alcohol Use: None Do you use any recreational Drugs:: No Lives With: Family Lives Where: Home infectious screening In the last 2 months have you had wt loss of >10#?: NO Have you had fever, night sweats or hemotysis?: No Have you traveled outside the country in the last 6 months?: No Isolation: Standard ROS Review of Systems Constitutional: No Symptoms Reported Eyes: No Symptoms Reported ENTM: No Symptoms Reported Respiratoy: See HPI Gastrointestinal/Abdominal: No Symptoms Reported Genitourinary: No Symptoms Reported Neurological: No Symptoms Reported Integumentary: No Symptoms Reported Hematologic/Lymphatic: See HPI Psychiatric: No Symptoms Reported PE Vitals Vitals: Temperature 97.2 F Pulse Rate [Apical] 66 Pulse Rate 69 Respiratory Rate 22 Blood Pressure [Right Arm] 105/64 Blood Pressure [Left Arm] 111/64 Blood Pressure [Standing] 103/71 Blood Pressure [Sitting] 121/76 Blood Pressure [Lying] 122/76 Blood Pressure 105/62 O2 Sat by Pulse Oximetry 97 General Limitations: No Limitations General Appearance: Alert, In No Apparent Distress and Anxious Head Head Exam: Normal Inspection, Atraumatic and Normocephalic Eyes Eye exam: Normal Appearance, PERRL and EOMI ENT ENT Exam: Normal Exam Respiratory Respiratory Exam: Normal Lung Sounds Bilat Respiratory Exam: Bilateral: Clear to Auscultation Cardiovascular Cardiovascular Exam: Regular Rate and Normal Rhythm Abdominal Exam Abdominal Exam: Normal Inspection, Normal Bowel Sounds and Soft Extremities Extremities Exam: Normal Inspection and Full ROM Psychiatric Psychiatric Exam: Normal Affect and Normal Mood Skin Skin Exam: Warm, Dry and Intact COURSE Reevaluation 1st: Unchanged 2nd: Improved 3rd: Worsened Consultation Consultation Comments: s/w Dr Azul who suggested ddimer but accepted pt ROR Labs Reviewed Result Diagrams: 10/19/19 19:35 10/19/19 19:35 Laboratory: WBC 6.7 X10^3/uL (3.6-10.0) 10/19/19 19:35 RBC 4.89 X10^6/uL (4.7-6.0) 10/19/19 19:35 Hgb 15.3 g/dL (13.5-18.0) 10/19/19 19:35 Hct 43.6 % (42.0-54.0) 10/19/19 19:35 MCV 89.1 fL (80.0-100.0) 10/19/19 19:35 MCH 31.2 pg (27.0-34.0) 10/19/19 19:35 MCHC 35.0 g/dL (33.0-35.0) 10/19/19 19:35 RDW 12.4 % (11.6-16.5) 10/19/19 19:35 Plt Count 189 X10^3/uL (150.0-450.0) 10/19/19 19:35 MPV 7.5 fL (7.4-11.0) 10/19/19 19:35 Neut % (Auto) 64.6 % (42.0-75.0) 10/19/19 19:35 Lymph % (Auto) 23.0 % (21.0-51.0) 10/19/19 19:35 [place] % (Auto) 8.2 % (0.0-13.0) 10/19/19 19:35 Eos % (Auto) 3.1 % (0.9-2.9) H 10/19/19 19:35 Baso % (Auto) 1.1 % (0.2-1.0) H 10/19/19 19:35 Neut # (Auto) 4.4 x10^3/uL (2.2-4.8) 10/19/19 19:35 Lymph # (Auto) 1.6 X10^3/uL (1.3-2.9) 10/19/19 19:35 [place] # (Auto) 0.6 x10^3/uL (0.3-0.8) 10/19/19 19:35 Eos # (Auto) 0.2 x10^3/uL (0.0-0.2) 10/19/19 19:35 Baso # (Auto) 0.1 X10^3/uL (0.0-0.1) 10/19/19 19:35 Absolute Nucleated RBC 0.0 /100WBC 10/19/19 19:35 D-Dimer 1360 ng/mL (0-400) H* 10/19/19 19:35 Sodium 140 mmol/L (136-145) 10/19/19 19:35 Corrected Sodium TNP 10/19/19 19:35 Potassium 3.6 mmol/L (3.5-5.1) 10/19/19 19:35 Chloride 102 mmol/L (98-107) 10/19/19 19:35 Carbon Dioxide 28.7 mmol/L (21-32) 10/19/19 19:35 BUN 8 mg/dL (7-18) 10/19/19 19:35 Creatinine 0.99 mg/dL (0.70-1.30) 10/19/19 19:35 Est GFR (MDRD) Af Amer > 60 (>60) 10/19/19 19:35 Est GFR (MDRD) Non-Af > 60 (>60) 10/19/19 19:35 Glucose 93 mg/dL (65-99) 10/19/19 19:35 Calcium 8.5 mg/dL (8.5-10.1) 10/19/19 19:35 Corrected Calcium TNP 10/19/19 19:35 Total Bilirubin 0.80 mg/dL (0.2-1.0) 10/19/19 19:35 AST 15 Units/L (15-37) 10/19/19 19:35 ALT 12 Units/L (12-78) 10/19/19 19:35 Alkaline Phosphatase 40 Units/L (46-116) L 10/19/19 19:35 Creatine Kinase 99 Units/L (39-308) 10/19/19 19:35 CK-MB (CK-2) 1.0 ng/mL (0-4.0) 10/19/19 19:35 CK/CKMB % Calc 1.0 % (<4) 10/19/19 19:35 Troponin I < 0.02 ng/mL (0-1.5) 10/19/19 19:35 Total Protein 7.7 g/dL (6.4-8.2) 10/19/19 19:35 Albumin 3.7 g/dL (3.4-5.0) 10/19/19 19:35 Globulin 4.0 g/dL (2.5-4.5) 10/19/19 19:35 Albumin/Globulin Ratio 0.9 Ratio (1.1-2.1) L 10/19/19 19:35 Other Results Comments: Bilateral lower lobe peribronchial thickening with peribronchial consolidation and alveolar consolidation within left lower lobe consistent with bronchitis and left lower lobe bronchopneumonia. Progressive decreased opacification within bilateral lower lobe subsegmental pulmonary arteries is suspected to represent poor contrast opacification as no discrete embolus is identified and the parenchymal lung disease would be atypical appearance for a PTE. Nonetheless clinical correlation is needed and if clinically warranted a follow-up CTA can be performed for potentially improved opacification. Cardiomegaly with calcification of the left ventricular myocardial apex. Moderate coronary artery calcified atherosclerotic disease. Indeterminate numerous small hypoattenuating lesions within the liver. Cholelithiasis without CT evidence of acute cholecystitis. Additional incidental, nonacute findings as described above. XRAY XRAY Interpreted by: Radiologist Opioid Opioid Risk Tool Age (Sunil box if 16-45): No History of Preadolescent Sexual Abuse: No Total: 0 Total Score Risk Category: Low Risk Copyright: Oscar HERNANDEZ predicting aberrant behaviors Diagnosis Discharge Problem: Chest pain Qualifiers: Chest pain type: other chest pain Qualified Code(s): R07.89 - Other chest pain CAD (coronary artery disease) Qualifiers: Coronary Disease-Associated Artery/Lesion type: [place] artery [place] vs. transplanted heart: tejon heart Associated angina: with stable angina Qualified Code(s): I25.118 - Atherosclerotic heart disease of [place] coronary artery with other forms of angina pectoris Cardiomyopathy Qualifiers: Cardiomyopathy type: ischemic Qualified Code(s): I25.5 - Ischemic cardiomyopathy Pneumonia Qualifiers: Pneumonia type: due to unspecified organism Laterality: left Lung location: lower lobe of lung Qualified Code(s): J18.9 - Pneumonia, unspecified organism
[2019-10-19] MEDS ORDERED: ZOFRAN INJ 4 MG VIAL ONE (21:05)
[2019-10-19] MEDS ORDERED: MORPHINE SULFATE INJ 2 MG INJ ONE (21:05)
[2019-10-19] MEDS ORDERED: ZOFRAN INJ 4 MG VIAL IVP PRN (21:50)
--- NOTE | 2019-10-19 23:54 | CT ---
HISTORYsob coughing up bloodSTUDYCTA CHEST W/WO CONTCOMPARISONNone availableTECHNIQUEMultiple axial images of the chest were obtained from the thoracic inlet to the upper abdomen after the administration of IV contrast. 3D reconstructions utilizing axial MIPS imaging was performed and reviewed. Dose reduction techniques including Automated Exposure Control (AEC) and adjustment of mA and kV were utilized.FINDINGS[There is diffuse decreased opacification of the right left lower lobe segmental pulmonary arteries. The middle lobe, lingular and upper lobe pulmonary arteries demonstrate normal contrast opacification. There is normal caliber of the pulmonary artery.]The heart size enlarged most severely affecting the left ventricle. There are calcifications within the left apical myocardium moderate calcification of the coronary arteries is noted. No pericardial effusion. Thoracic aorta is normal in caliber. No enlarged mediastinal or hilar lymphadenopathy. Centrilobular and paraseptal emphysema are noted bilaterally. Right and left lower lobe peribronchial thickening is noted; however, there is more severe peribronchial consolidation along with ground-glass alveolar opacities within the left lower lobe. No pulmonary nodule or mass. No pleural effusion or pneumothorax.Imaging of the upper abdomen demonstrates cholelithiasis. Numerous small hypoattenuating lesions are noted within the liver. Several partially visualized cysts are noted within the pole the right kidney. No acute osseous abnormality.IMPRESSIONBilateral lower lobe peribronchial thickening with peribronchial consolidation and alveolar consolidation within left lower lobe consistent with bronchitis and left lower lobe bronchopneumonia.Progressive decreased opacification within bilateral lower lobe subsegmental pulmonary arteries is suspected to represent poor contrast opacification as no discrete embolus is identified and the parenchymal lung disease would be atypical appearance for a PTE. Nonetheless clinical correlation is needed and if clinically warranted a follow-up CTA can be performed for potentially improved opacification.Cardiomegaly with calcification of the left ventricular myocardial apex.Moderate coronary artery calcified atherosclerotic disease.Indeterminate numerous small hypoattenuating lesions within the liver.Cholelithiasis without CT evidence of acute cholecystitis.Additional incidental, nonacute findings as described above.Electronically signed by: SIRI DAY (Oct 19, 2019 23:53:39)
[2019-10-20] MEDS ORDERED: KLONOPIN TAB 1 MG ONE (01:26)
[2019-10-20] MEDS: ZITHROMAX INJ 500 MG VIAL 500 MG in D5W 250 ML IV 250 ML IV SCH ×2 (01:30→09:37)
[2019-10-20] MEDS: KLONOPIN TAB 1 MG PO PRN ×2 (01:37→01:38)
[2019-10-20] MEDS ORDERED: NS 250 ML IV 250 ML IV ONE (01:43)
[2019-10-20] MEDS: MORPHINE SULFATE INJ 2 MG INJ IVP PRN ×2 (03:09→19:52)
[2019-10-20 03:14] LABS: CREATINE KINASE 96 Units/L (39-308); CREATINE KINASE MB < 1.0 ng/mL (0-4.0); TROPONIN I < 0.02 ng/mL (0-1.5)
[2019-10-20] MEDS: ROCEPHIN VIAL 1 GRAM 1 G in NS 100 ML IV + SPIKE MINIBAG* 100 ML IV SCH ×2 (04:30→09:42)
[2019-10-20 06:45] LABS: CREATINE KINASE 96 Units/L (39-308); CREATINE KINASE MB < 1.0 ng/mL (0-4.0); TROPONIN I < 0.02 ng/mL (0-1.5)
[2019-10-20 09:15] LABS: ABG ALLEN TEST POS; ABG BASE EXCESS 4.5 mmol/L (-2.0-2.0); ABG HCO3 29.2 mmol/L (22-26)
[2019-10-20] MEDS: COREG TAB 25 MG PO SCH ×2 (09:40→21:47)
[2019-10-20] MEDS: WELLBUTRIN SR 150 MG (BID) PO SCH ×2 (09:40→21:49)
[2019-10-20] MEDS: LANOXIN PO SCH (09:40)
[2019-10-20] MEDS: PriLOSEC PO SCH (09:41)
[2019-10-20] MEDS: PLAVIX PO SCH (09:41)
[2019-10-20] MEDS: KLONOPIN TAB 1 MG PO SCH ×2 (09:42→21:48)
[2019-10-20] MEDS: ISOSORBIDE DINITRATE PO SCH ×2 (09:43→21:48)
[2019-10-20] MEDS: ENTRESTO 24/26 MG TAB PO SCH ×2 (09:54→21:48)
[2019-10-20] MEDS: PERCOCET TAB 5/325 MG PO SCH ×3 (10:53→23:16)
[2019-10-20] MEDS ORDERED: PERCOCET TAB 5/325 MG ONE (10:58)
--- NOTE | 2019-10-20 13:44 | DR.H&P ---
H&P - History & Physical for Day of: H&P Date: 10/19/19 - Chief Complaint Chief Complaint: SOB - History of Present Illness History of Present Illness: 59 WM ER ADMISSION WITH C/O CHEST PAINS, TIGHTENING IN CHEST, SHORTNESS OF BREATH AND COUGHING UP BLOOD TINGED SPUTUM X 1 WEEK. PT. STATES HE HAS HAD FEVER AND CHILLS. PT HAD PMH OF CHF, CAD, COPD, OA, PT REPORTS HE HAS BEEN TAKEN PO ANTIBIOTICS WITHOUT IMRPOVEMENT. CTA CHEST IN ER REVEALED BILATERAL PNEUMONIA. - Past Medical History Past Medical History: [place], Coronary Artery Disease, Hypertension, Dyslipidemia, Renal Disease, Depression, Anxiety, COPD, Headaches, CHF - Past Surgical History Surgical History: Angioplasty/Stents, Ortho Surgery Additional Surgical History: Defibrillator - Family History Family Medical History: Diabetes Mellitus, Coronary Artery Disease, Sudden Cardiac , Hypertension - Social History Does patient currently use any type of tobacco product: No Have you used tobacco products in the last 12 months: No Type of Tobacco Use: None How many years tobacco product used: 38 Does any household member use tobacco: No Alcohol Use: Occasionally Drug Use: None - Medications Home Medications: No Known Drug Allergies Allergy (Verified 10/19/19 18:38) - Review of Systems Constitutional: Fever, Chills, Weakness, Malaise Eyes: No Symptoms Reported ENT: No Symptoms Reported Respiratory: Shortness of Breath, SOB with Excertion, Wheezing Cardiovascular: Chest Pain, Edema Gastrointestinal: Nausea Genitourinary: No Symptoms Reported Musculoskeletal: Back Pain, Neck Pain Skin: No Symptoms Reported Neurological: No Symptoms Reported - Physical Exam Vital Signs: Temperature 98.1 F Pulse Rate [Apical] 67 Pulse Rate 69 Respiratory Rate 22 Blood Pressure [Right Arm] 90/50 Blood Pressure [Left Arm] 119/71 Blood Pressure [Standing] 103/71 Blood Pressure [Sitting] 121/76 Blood Pressure [Lying] 122/76 Blood Pressure 105/62 O2 Sat by Pulse Oximetry 91 Oriented: Normal Eyes: Normal Ear: Normal Nose: Normal Throat: Normal Respiratory: Rhonchi Throughout, RLL Diminished, LLL Diminished Cardiovascular: Normal, Edema : Normal Auscultation: Bowel Sounds: Normal Palpation: Normal Tenderness: Normal Skin: Decreased Turgur Musculoskeletal: Back:Lumbar Mood Description: Calm Speech Pattern: Clear, Appropriate - Assessment/Plan (1) Pneumonia Qualifiers: Pneumonia type: due to unspecified organism Laterality: left Lung location: lower lobe of lung Qualified Code(s): J18.9 - Pneumonia, unspecified organism Status: Acute Plan: ADMIT, IV ABTX, RESP THERAPY. SUPPLEMENTAL O2, ABG. SPUTUM AND BLOOD CULTURES. VERIFY HOME MEDICATION, RESUME MEDS, CONTINUOUS CARDIAC MONITORING, STRICT I & OS. SERIAL CE AND EKG (2) SOB (shortness of breath) Status: Acute (3) CHF (congestive heart failure) Status: Chronic (4) COPD (chronic obstructive pulmonary disease) Status: Chronic (5) Essential hypertension Status: Chronic (6) GERD (gastroesophageal reflux disease) Status: Chronic - Allergies Allergies/Adverse Reactions: Allergies Allergy/AdvReac Type Severity Reaction Status Date / Time No Known Drug Allergies Allergy Verified 10/19/19 18:38
[2019-10-20] MEDS: XOPENEX 1.25 MG/3 ML NEBULE NEB PRN ×2 (14:31→20:15)
[2019-10-20] MEDS: PULMICORT NEB TX 0.5 MG NEB SCH ×2 (14:31→20:15)
[2019-10-20] MEDS: MICRO K EXTEN CAP 10 MEQ PO SCH ×2 (15:27→21:49)
[2019-10-20] MEDS: SOLU-Medrol 40 MG VIAL IVP SCH ×2 (15:29→21:49)
[2019-10-20] MEDS: DESYREL PO SCH (21:48)
[2019-10-21] MEDS: MORPHINE SULFATE INJ 2 MG INJ IVP PRN ×2 (02:27→09:00)
[2019-10-21] MEDS: PERCOCET TAB 5/325 MG PO SCH ×3 (05:55→20:57)
[2019-10-21] MEDS: MICRO K EXTEN CAP 10 MEQ PO SCH ×3 (05:55→21:07)
[2019-10-21 06:17] LABS: BASOPHILS % (AUTO) 0 % (0.2-1.0); HEMATOCRIT 42.6 % (42.0-54.0); LYMPHOCYTES # (AUTO) 0.6 X10^3/uL (1.3-2.9); LYMPHOCYTES % (AUTO) 7.2 % (21.0-51.0); MEAN CORPUSCULAR HEMOGLOBIN 31.5 pg (27.0-34.0); MEAN CORPUSCULAR HGB CONC 35.2 g/dL (33.0-35.0); MEAN CORPUSCULAR VOLUME 89.6 fL (80.0-100.0); MEAN PLATELET VOLUME 7.9 fL (7.4-11.0); MONOCYTES # (AUTO) 0.1 x10^3/uL (0.3-0.8); MONOCYTES % (AUTO) 1.4 % (0.0-13.0); NEUTROPHILS % (AUTO) 91.4 % (42.0-75.0); PLATELET COUNT 216 X10^3/uL (150.0-450.0); RED BLOOD COUNT 4.75 X10^6/uL (4.7-6.0); RED CELL DISTRIBUTION WIDTH 12.2 % (11.6-16.5); WHITE BLOOD COUNT 7.7 X10^3/uL (3.6-10.0)
[2019-10-21 06:34] LABS: ALANINE AMINOTRANSFERASE 14 Units/L (12-78); ALBUMIN 3.2 g/dL (3.4-5.0); ALKALINE PHOSPHATASE 39 Units/L (46-116); ASPARTATE AMINO TRANSFERASE 10 Units/L (15-37); BLOOD UREA NITROGEN 7 mg/dL (7-18); CALCIUM 8.4 mg/dL (8.5-10.1); CARBON DIOXIDE 28.4 mmol/L (21-32); CHLORIDE 102 mmol/L (98-107); COR NA(FOR HYPERGLY) 139 mmol/L (136-145); CREATININE 1.08 mg/dL (0.70-1.30); SODIUM 137 mmol/L (136-145); TOTAL PROTEIN 7.3 g/dL (6.4-8.2); eGFR NON BLACK RACES > 60 (>60)
[2019-10-21 06:41] LABS: BAND NEUTROPHILS % 1 % (0-10); PLATELET MORPHOLOGY COMMENT NORMAL (NORMAL)
--- NOTE | 2019-10-21 08:22 | RAD ---
HISTORYbronchopneumoniaSTUDYCHEST, 1 VIEWCOMPARISONDeceer 2018TECHNIQUEPortable chestFINDINGSPreviously described left lower lobe infiltrate has improved. There is marginal blunting of the left costophrenic sulcus. The heart size is stable, mildly enlarged with accentuated left heart border. Battery pack for combination AICD pacemaker lies along the right chest wall.IMPRESSIONImproved but not yet fully resolved pattern of bronchopneumonia within the left lower lobe, with subjacent atelectasis and/or trace effusion at the costophrenic sulcusStable cardiomegaly with accentuation of the left heart border typical of LVH.Electronically signed by: WILY VANG (Oct 21, 2019 08:20:52)
[2019-10-21] MEDS: PriLOSEC PO SCH (08:58)
[2019-10-21] MEDS: ENTRESTO 24/26 MG TAB PO SCH ×2 (08:58→20:56)
[2019-10-21] MEDS: COREG TAB 25 MG PO SCH ×2 (08:59→20:57)
[2019-10-21] MEDS: ZITHROMAX INJ 500 MG VIAL 500 MG in D5W 250 ML IV 250 ML IV SCH (08:59)
[2019-10-21] MEDS: WELLBUTRIN SR 150 MG (BID) PO SCH ×2 (08:59→20:56)
[2019-10-21] MEDS: KLONOPIN TAB 1 MG PO SCH ×2 (08:59→20:58)
[2019-10-21] MEDS: ROCEPHIN VIAL 1 GRAM 1 G in NS 100 ML IV + SPIKE MINIBAG* 100 ML IV SCH (09:00)
[2019-10-21] MEDS: LANOXIN PO SCH (09:02)
[2019-10-21] MEDS: ISOSORBIDE DINITRATE PO SCH ×2 (09:04→20:57)
[2019-10-21] MEDS: PLAVIX PO SCH (09:04)
[2019-10-21] MEDS ORDERED: NS 500 ML IV 500 ML IV ONE (09:19)
[2019-10-21] MEDS: PULMICORT NEB TX 0.5 MG NEB SCH ×2 (10:00→20:13)
[2019-10-21] MEDS: LEVAQUIN PREMIX IV 500 MG 500 MG/100 ML BAG IV SCH (14:44)
[2019-10-21] MEDS: XOPENEX 1.25 MG/3 ML NEBULE NEB PRN (20:14)
[2019-10-21] MEDS: DESYREL PO SCH (20:56)
[2019-10-22] MEDS: PERCOCET TAB 5/325 MG PO SCH ×4 (01:57→20:30)
[2019-10-22 05:34] LABS: BASOPHILS % (AUTO) 0.4 % (0.2-1.0); EOSINOPHILS % (AUTO) 0.2 % (0.9-2.9); HEMATOCRIT 40.2 % (42.0-54.0); HEMOGLOBIN 13.8 g/dL (13.5-18.0); LYMPHOCYTES # (AUTO) 1.8 X10^3/uL (1.3-2.9); MEAN CORPUSCULAR HGB CONC 34.4 g/dL (33.0-35.0); MEAN CORPUSCULAR VOLUME 90.1 fL (80.0-100.0); MEAN PLATELET VOLUME 7.7 fL (7.4-11.0); MONOCYTES # (AUTO) 0.8 x10^3/uL (0.3-0.8); MONOCYTES % (AUTO) 9.3 % (0.0-13.0); NEUTROPHILS # (AUTO) 6.1 x10^3/uL (2.2-4.8); NEUTROPHILS % (AUTO) 69.1 % (42.0-75.0); PLATELET COUNT 192 X10^3/uL (150.0-450.0); RED BLOOD COUNT 4.46 X10^6/uL (4.7-6.0); RED CELL DISTRIBUTION WIDTH 12.5 % (11.6-16.5); WHITE BLOOD COUNT 8.8 X10^3/uL (3.6-10.0)
[2019-10-22] MEDS: MICRO K EXTEN CAP 10 MEQ PO SCH ×3 (05:34→21:08)
[2019-10-22 05:43] LABS: ALANINE AMINOTRANSFERASE 12 Units/L (12-78); ALBUMIN 2.9 g/dL (3.4-5.0); ALKALINE PHOSPHATASE 33 Units/L (46-116); ASPARTATE AMINO TRANSFERASE 8 Units/L (15-37); BLOOD UREA NITROGEN 10 mg/dL (7-18); CALCIUM 8.2 mg/dL (8.5-10.1); CARBON DIOXIDE 30.2 mmol/L (21-32); CHLORIDE 105 mmol/L (98-107); COR CA(FOR HYPOALB) 9.1 mg/dL (8.5-10.1); CREATININE 0.93 mg/dL (0.70-1.30); SODIUM 141 mmol/L (136-145); TOTAL PROTEIN 6.4 g/dL (6.4-8.2); eGFR NON BLACK RACES > 60 (>60)
[2019-10-22] MEDS: PULMICORT NEB TX 0.5 MG NEB SCH ×2 (08:53→20:36)
[2019-10-22] MEDS: PriLOSEC PO SCH (08:56)
[2019-10-22] MEDS: WELLBUTRIN SR 150 MG (BID) PO SCH ×2 (08:56→20:29)
[2019-10-22] MEDS: COREG TAB 25 MG PO SCH ×2 (08:56→20:29)
[2019-10-22] MEDS: KLONOPIN TAB 1 MG PO SCH ×2 (08:56→20:29)
[2019-10-22] MEDS: ENTRESTO 24/26 MG TAB PO SCH ×2 (08:56→20:29)
[2019-10-22] MEDS: PLAVIX PO SCH (08:58)
[2019-10-22] MEDS: ISOSORBIDE DINITRATE PO SCH ×2 (09:02→20:31)
[2019-10-22] MEDS: LANOXIN PO SCH (09:02)
[2019-10-22] MEDS: ROCEPHIN VIAL 1 GRAM 1 G in NS 100 ML IV + SPIKE MINIBAG* 100 ML IV SCH (09:04)
[2019-10-22] MEDS: LEVAQUIN PREMIX IV 500 MG 500 MG/100 ML BAG IV SCH (09:05)
--- NOTE | 2019-10-22 10:15 | RAD ---
HISTORYPNEUMONIA, CHFSTUDYCHEST, 1 VIEW, done [id number]'s examination is more expiratory with accentuation of trans verse cardiac diameter and bronchovascular markings. Not withstanding these changes, there are fluffy areas of increased density present in both perihilar regions, which is suspicious for mild edema. No dense consolidation is seen. A small left pleural effusion is not reliably excluded. No pneumothorax is seen. There is a left-sided pacemaker/defibrillator present. A right-sided phrenic nerve stimulat or is present. Osseous structures are intact.IMPRESSIONMore expiratory phase on today's exam with leighann e accentuation transverse cardiac diameter. The heart size is likely upper normal.Fluffy appearing de nsities present in both hilar region, suspect for a very mild edema. Admittedly, these changes could be influenced by the expiratory phase.Electronically signed by: EARNESTINE ANGUIANO (Oct 22, 2019 10:14:13)
[2019-10-22] MEDS: SOLU-Medrol 40 MG VIAL IVP SCH ×2 (10:31→20:30)
[2019-10-22] MEDS: LOVENOX INJ 40 MG SYR SC SCH (10:31)
[2019-10-22] MEDS: DESYREL PO SCH (20:30)
[2019-10-23] MEDS: PERCOCET TAB 5/325 MG PO SCH ×2 (02:09→08:19)
[2019-10-23] MEDS: MICRO K EXTEN CAP 10 MEQ PO SCH (05:17)
[2019-10-23 05:22] LABS: BASOPHILS % (AUTO) 0.1 % (0.2-1.0); HEMATOCRIT 42.3 % (42.0-54.0); HEMOGLOBIN 14.8 g/dL (13.5-18.0); LYMPHOCYTES # (AUTO) 0.6 X10^3/uL (1.3-2.9); LYMPHOCYTES % (AUTO) 6.1 % (21.0-51.0); MEAN CORPUSCULAR HEMOGLOBIN 31.7 pg (27.0-34.0); MEAN CORPUSCULAR VOLUME 90.4 fL (80.0-100.0); MEAN PLATELET VOLUME 8.1 fL (7.4-11.0); MONOCYTES # (AUTO) 0.2 x10^3/uL (0.3-0.8); MONOCYTES % (AUTO) 1.7 % (0.0-13.0); NEUTROPHILS # (AUTO) 9.1 x10^3/uL (2.2-4.8); NEUTROPHILS % (AUTO) 92.1 % (42.0-75.0); PLATELET COUNT 219 X10^3/uL (150.0-450.0); RED BLOOD COUNT 4.67 X10^6/uL (4.7-6.0); RED CELL DISTRIBUTION WIDTH 12.2 % (11.6-16.5); WHITE BLOOD COUNT 9.9 X10^3/uL (3.6-10.0)
[2019-10-23 05:45] LABS: ALANINE AMINOTRANSFERASE 11 Units/L (12-78); ALBUMIN 3.1 g/dL (3.4-5.0); ALKALINE PHOSPHATASE 37 Units/L (46-116); ASPARTATE AMINO TRANSFERASE 9 Units/L (15-37); BLOOD UREA NITROGEN 13 mg/dL (7-18); CALCIUM 8.7 mg/dL (8.5-10.1); CARBON DIOXIDE 26.4 mmol/L (21-32); CHLORIDE 101 mmol/L (98-107); COR CA(FOR HYPOALB) 9.4 mg/dL (8.5-10.1); COR NA(FOR HYPERGLY) 138 mmol/L (136-145); CREATININE 0.92 mg/dL (0.70-1.30); SODIUM 136 mmol/L (136-145); TOTAL PROTEIN 6.8 g/dL (6.4-8.2); eGFR NON BLACK RACES > 60 (>60)
[2019-10-23 06:07] LABS: PLATELET MORPHOLOGY COMMENT NORMAL (NORMAL)
[2019-10-23] MEDS: PriLOSEC PO SCH (08:16)
[2019-10-23] MEDS: KLONOPIN TAB 1 MG PO SCH (08:17)
[2019-10-23] MEDS: PLAVIX PO SCH (08:18)
[2019-10-23] MEDS: LANOXIN PO SCH (08:19)
[2019-10-23] MEDS: COREG TAB 25 MG PO SCH (08:21)
[2019-10-23] MEDS: ENTRESTO 24/26 MG TAB PO SCH (08:22)
[2019-10-23] MEDS: ROCEPHIN VIAL 1 GRAM 1 G in NS 100 ML IV + SPIKE MINIBAG* 100 ML IV SCH (08:23)
[2019-10-23] MEDS: LOVENOX INJ 40 MG SYR SC SCH (08:23)
[2019-10-23] MEDS: LEVAQUIN PREMIX IV 500 MG 500 MG/100 ML BAG IV SCH (08:23)
[2019-10-23] MEDS: WELLBUTRIN SR 150 MG (BID) PO SCH (08:25)
[2019-10-23] MEDS: ISOSORBIDE DINITRATE PO SCH (08:26)
[2019-10-23 10:05] VITALS: BP 139/80
== END 2019-10-23 11:15 | disposition home or self-care (01) | DRG 194 ==
LOC: ER 18:35 → ICU 18:35 → OBSVTOIN 21:46 → ICU 10-20 00:36
PROVIDERS: ADMIT Family Medicine; ATTEND Internal Medicine
DX: J44.9 Chronic obstructive pulmonary disease, unspecified; G89.4 Chronic pain syndrome; I11.0 Hypertensive heart disease with heart failure; I25.118 Atherosclerotic heart disease of native coronary artery with other forms of angina pectoris; I50.9 Heart failure, unspecified; M50.90 Cervical disc disorder, unspecified, unspecified cervical region; J18.8 Other pneumonia, unspecified organism; R07.89 Other chest pain; I25.5 Ischemic cardiomyopathy; E78.2 Mixed hyperlipidemia; Z79.01 Long term (current) use of anticoagulants; R04.2 Hemoptysis; R73.09 Other abnormal glucose; R06.02 Shortness of breath; M51.36 Other intervertebral disc degeneration, lumbar region
CPT/HCPCS: 36415; 36600; 71010; 71045; 71275; 80053; 82550; 82553; 82803; 83735; 84484; 85025; 85378; 87070; 87077; 87186; 87205; 87502; 93005; 94640; 96365; 96374; 96375; 97110; 97112; 97162; 97166; 99284; A4216; A4222; S0106; J0456; J0696; J1650; J1956; J2270; J2405; J2920; J7040; J7050; J7060; J7626

== ENCOUNTER 2020-10-11 12:54 | Observation (INO) ==
[2020-10-11] MEDS ORDERED: ZOFRAN INJ 4 MG VIAL IVP PRN (17:29)
--- NOTE | 2020-10-11 17:47 | DR.H&P ---
H&P - History & Physical for Day of: H&P Date: 10/11/20 - Chief Complaint Chief Complaint: LOW GRADE FEVER, POSITIVE BLOOD CULTURES - History of Present Illness History of Present Illness: PT HAS PMH OF CHF, CAD, HTN, OA, BPH. PT HAD ECOLI POSITIVE BC X2 ON 10/06. PT HAD TAKEN ROUND OF CIPRO AND AUGMENTIN SINCE AUGUST WITH REPEAT CULTURES ON 10/06 POSIVIT FOR ECOLI, PT DENIES ANY CHEST PAIN OR SOB. PT DOES HAVE CO INCREASED FAITUGE AND REOCCURRING LOW GRADE FEVERS. 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 - Past Medical History Past Medical History: [place], Coronary Artery Disease, Hypertension, Dyslipidemia, Renal Disease, Depression, Anxiety, COPD, Headaches, CHF - Past Surgical History Surgical History: Angioplasty/Stents, Ortho Surgery Additional Surgical History: Defibrillator - Family History Family Medical History: Diabetes Mellitus, Coronary Artery Disease, Sudden Cardiac , Hypertension - Social History Does patient currently use any type of tobacco product: No Have you used tobacco products in the last 12 months: No Type of Tobacco Use: None Does any household member use tobacco: No Alcohol Use: None Drug Use: None Risks, benefits, and alternatives of opioids discussed: No Prescription drug monitoring program results: PDMP reviewed and no concerns identified - Medications Home Medications: No Known Drug Allergies Allergy (Verified 10/19/19 18:38) - Review of Systems Constitutional: Weakness, Malaise Eyes: No Symptoms Reported ENT: No Symptoms Reported Respiratory: SOB with Excertion Cardiovascular: denies: Edema Gastrointestinal: Nausea Genitourinary: No Symptoms Reported Musculoskeletal: Back Pain, Leg Pain, Neck Pain Skin: No Symptoms Reported Neurological: No Symptoms Reported - Physical Exam Vital Signs: Blood Pressure [Right Arm] 106/60 Oriented: Normal Eyes: Normal Ear: Normal Nose: Normal Throat: Normal Respiratory: RLL Diminished, LLL Diminished Cardiovascular: Normal : Normal Auscultation: Bowel Sounds: Normal Palpation: Normal Tenderness: Normal Skin: Decreased Turgur Musculoskeletal: Back:Thoracic, Back:Lumbar Psychiatric: Anxiety Affect: Anxious Speech Pattern: Clear, Appropriate - Assessment/Plan (1) Bacteremia due to Escherichia coli Status: Acute Plan: ADMIT, IV ATBX, AM LABS. IV INVANZ, CONSULT ANESTHESIA FOR PICC LINE PLACEMENT. STRICT I&OS, CARDIAC MONITORING. VERIFY HOME MEDICATION (2) Cervical spine arthritis Status: Acute (3) CAD (coronary artery disease) Qualifiers: Coronary Disease-Associated Artery/Lesion type: [place] artery [place] vs. transplanted heart: [place] heart Associated angina: with stable angina Qualified Code(s): I25.118 - Atherosclerotic heart disease of [place] coronary artery with other forms of angina pectoris Status: Chronic (4) GERD (gastroesophageal reflux disease) Status: Chronic (5) Cardiac defibrillator in place Status: Chronic - Allergies Allergies/Adverse Reactions: Allergies Allergy/AdvReac Type Severity Reaction Status Date / Time No Known Drug Allergies Allergy Verified 10/19/19 18:38
--- NOTE | 2020-10-11 19:08 | RAD ---
CHEST, 1 VIEWHISTORY: SOBStudy: Single view of the chest.Comparison:NoneFindings:The cardiomediastinal silhouette is normal.No focal consolidations, pleural effusions or pneumothorax. Osseous structures demonstrate no acute abnormality.IMPRESSION:1. No acute cardiopulmonary process.Electronically signed by: JULIA BRANCH (Oct 11, 2020 19:05:49)
[2020-10-11 19:30] LABS: BASOPHILS # (AUTO) 0.1 X10^3/uL (0.0-0.1); BASOPHILS % (AUTO) 1.1 % (0.2-1.0); EOSINOPHILS # (AUTO) 0.2 x10^3/uL (0.0-0.2); EOSINOPHILS % (AUTO) 3.9 % (0.9-2.9); HEMATOCRIT 36.9 % (42.0-54.0); LYMPHOCYTES # (AUTO) 1.3 X10^3/uL (1.3-2.9); LYMPHOCYTES % (AUTO) 23.7 % (21.0-51.0); MEAN CORPUSCULAR HEMOGLOBIN 31.5 pg (27.0-34.0); MEAN CORPUSCULAR HGB CONC 35.2 g/dL (33.0-35.0); MEAN CORPUSCULAR VOLUME 89.5 fL (80.0-100.0); MEAN PLATELET VOLUME 7.6 fL (7.4-11.0); MONOCYTES # (AUTO) 0.4 x10^3/uL (0.3-0.8); MONOCYTES % (AUTO) 7.6 % (0.0-13.0); NEUTROPHILS # (AUTO) 3.4 x10^3/uL (2.2-4.8); NEUTROPHILS % (AUTO) 63.7 % (42.0-75.0); PLATELET COUNT 269 X10^3/uL (150.0-450.0); RED BLOOD COUNT 4.13 X10^6/uL (4.7-6.0); RED CELL DISTRIBUTION WIDTH 13.9 % (11.6-16.5); WHITE BLOOD COUNT 5.3 X10^3/uL (3.6-10.0)
[2020-10-11 19:42] LABS: ALANINE AMINOTRANSFERASE 88 Units/L (12-78); ALBUMIN 3.2 g/dL (3.4-5.0); ALKALINE PHOSPHATASE 284 Units/L (46-116); ASPARTATE AMINO TRANSFERASE 57 Units/L (15-37); BLOOD UREA NITROGEN 24 mg/dL (7-18); CALCIUM 9.7 mg/dL (8.5-10.1); CARBON DIOXIDE 28.5 mmol/L (21-32); CHLORIDE 99 mmol/L (98-107); COR CA(FOR HYPOALB) 10.3 mg/dL (8.5-10.1); CREATININE 1.52 mg/dL (0.70-1.30); SODIUM 136 mmol/L (136-145); TOTAL PROTEIN 8.2 g/dL (6.4-8.2); eGFR NON BLACK RACES 50 (>60)
[2020-10-11 19:45] LABS: LACTIC ACID 0.9 mmol/L (0.4-2.0)
[2020-10-11 20:03] LABS: TOTAL PSA 0.16 ng/mL (0.13-4.0)
[2020-10-11] MEDS: COLACE CAP 100 MG PO SCH (20:05)
[2020-10-11] MEDS: PROTONIX INJ 40 MG VIAL IVP SCH (21:10)
[2020-10-11] MEDS: NS 1000 ML 1,000 ML IV SCH (21:15)
[2020-10-11] MEDS: INVANZ INJ 1 GM VIAL 1 GM in NS 100 ML IV + SPIKE MINIBAG* 100 ML IV SCH (21:15)
[2020-10-11] MEDS: PERCOCET TAB 5/325 MG PO PRN (21:25)
[2020-10-11] MEDS: KLONOPIN TAB 0.5 MG PO PRN (21:25)
[2020-10-11 22:55] LABS: BILIRUBIN,URINE NEGATIVE (NEGATIVE); BLOOD/HEMOGLOBIN,URINE NEGATIVE (NEGATIVE); GLUCOSE, URINE NEGATIVE (NEGATIVE); KETONES,URINE NEGATIVE (NEGATIVE); LEUKOCYTE ESTERASE ,URINE 1+ (NEGATIVE); NITRITES,URINE NEGATIVE (NEGATIVE); PROTEIN,URINE 1+ (NEGATIVE); UROBILINOGEN,URINE NORMAL (NORMAL)
[2020-10-11 23:00] LABS: APPEARANCE,URINE CLEAR (CLEAR); COLOR,URINE YELLOW (YELLOW); RBC,URINE NONE SEEN /HPF (0-3)
[2020-10-11 23:01] LABS: BACTERIA,URINE NEGATIVE /HPF (NEGATIVE); SQUAMOUS EPITHELIAL CELL,UR NEGATIVE /HPF (NEGATIVE)
[2020-10-12 01:12] VITALS: BMI 28.8
[2020-10-12] MEDS: PERCOCET TAB 5/325 MG PO PRN ×3 (04:25→20:52)
[2020-10-12] MEDS: NS 1000 ML 1,000 ML IV SCH ×3 (06:31→14:53)
[2020-10-12] MEDS: INVANZ INJ 1 GM VIAL 1 GM in NS 100 ML IV + SPIKE MINIBAG* 100 ML IV SCH (08:39)
[2020-10-12] MEDS: PROTONIX INJ 40 MG VIAL IVP SCH (08:39)
[2020-10-12] MEDS ORDERED: BIOTIN 10000 MCG PO SCH (09:15)
[2020-10-12] MEDS ORDERED: LASIX IVP ONE (09:18)
[2020-10-12] MEDS ORDERED: NEURONTIN CAP 400 MG PO SCH (10:00)
[2020-10-12] MEDS ORDERED: LASIX PO SCH (10:00)
[2020-10-12] MEDS ORDERED: LANOXIN or DIGITEK PO SCH (10:00)
--- NOTE | 2020-10-12 11:03 | RAD ---
HISTORYPICC placementSTUDYChest AP [id number]/22/2020FINDINGSThere is a left sided pacemaker present. There is a right PICC li ne present with its tip in the superior vena cava. The heart is within normal limits in size. The hil a are normal. The lung curran are clear. There is a battery pack present in the right axilla partiall y obscuring the right lung apex.IMPRESSIONRight PICC tip superior vena cavaLungs clearElectronically signed by: JODIE WELCH (Oct 12, 2020 11:01:35)
[2020-10-12] MEDS: ASPIRIN EC 81 MG PO SCH (11:10)
--- NOTE | 2020-10-12 11:10 | DR.UPDATE ---
H&P Update History and Physical Update: History and Physical reviewed and patient examined. 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 cannulation visualized.) Central line lumen ininserted: double (5.5fr arrowpicc) Post procedure: good blood return, all ports aspirated, flushed,capped, sterile dressing applied Post procedure xray: tip oc catheter in good position (tip in svc per cxr), no pneumothorax seen Patient tolerated procedure: Yes Complications: none
[2020-10-12] MEDS: COREG TAB 25 MG PO SCH ×2 (11:11→20:51)
[2020-10-12] MEDS: BUSPAR PO SCH ×2 (11:11→20:51)
[2020-10-12] MEDS: WELLBUTRIN SR 150 MG (BID) PO SCH ×2 (11:12→20:53)
[2020-10-12] MEDS: PLAVIX PO SCH (11:13)
[2020-10-12] MEDS: NEURONTIN CAP 400 MG PO SCH ×2 (14:12→21:50)
[2020-10-12] MEDS: SACUBITRIL VALSARTAN PO SCH ×2 (14:44→20:52)
[2020-10-12 16:00] LABS: BASOPHILS % (AUTO) 0.6 % (0.2-1.0); EOSINOPHILS # (AUTO) 0.2 x10^3/uL (0.0-0.2); EOSINOPHILS % (AUTO) 4.1 % (0.9-2.9); HEMATOCRIT 36.2 % (42.0-54.0); HEMOGLOBIN 12.5 g/dL (13.5-18.0); LYMPHOCYTES # (AUTO) 1.5 X10^3/uL (1.3-2.9); LYMPHOCYTES % (AUTO) 30.1 % (21.0-51.0); MEAN CORPUSCULAR HEMOGLOBIN 30.7 pg (27.0-34.0); MEAN CORPUSCULAR HGB CONC 34.4 g/dL (33.0-35.0); MEAN CORPUSCULAR VOLUME 89.3 fL (80.0-100.0); MEAN PLATELET VOLUME 7.5 fL (7.4-11.0); MONOCYTES # (AUTO) 0.5 x10^3/uL (0.3-0.8); MONOCYTES % (AUTO) 8.9 % (0.0-13.0); NEUTROPHILS # (AUTO) 2.9 x10^3/uL (2.2-4.8); NEUTROPHILS % (AUTO) 56.3 % (42.0-75.0); PLATELET COUNT 252 X10^3/uL (150.0-450.0); RED BLOOD COUNT 4.05 X10^6/uL (4.7-6.0); RED CELL DISTRIBUTION WIDTH 13.3 % (11.6-16.5); WHITE BLOOD COUNT 5.1 X10^3/uL (3.6-10.0)
[2020-10-12 16:15] LABS: ALANINE AMINOTRANSFERASE 87 Units/L (12-78); ALBUMIN 2.9 g/dL (3.4-5.0); ALKALINE PHOSPHATASE 237 Units/L (46-116); ASPARTATE AMINO TRANSFERASE 50 Units/L (15-37); BLOOD UREA NITROGEN 16 mg/dL (7-18); CALCIUM 9.3 mg/dL (8.5-10.1); CARBON DIOXIDE 27.9 mmol/L (21-32); CHLORIDE 99 mmol/L (98-107); COR CA(FOR HYPOALB) 10.2 mg/dL (8.5-10.1); COR NA(FOR HYPERGLY) 137 mmol/L (136-145); CREATININE 1.47 mg/dL (0.70-1.30); SODIUM 136 mmol/L (136-145); TOTAL PROTEIN 7.5 g/dL (6.4-8.2); eGFR NON BLACK RACES 52 (>60)
[2020-10-12] MEDS: COLACE CAP 100 MG PO SCH (20:51)
[2020-10-12] MEDS: KLONOPIN TAB 0.5 MG PO PRN (20:52)
[2020-10-12] MEDS ORDERED: SINEquan PO SCH (21:00)
[2020-10-13] MEDS: NS 1000 ML 1,000 ML IV SCH ×2 (03:10→12:31)
[2020-10-13] MEDS: PERCOCET TAB 5/325 MG PO PRN ×2 (04:04→10:45)
[2020-10-13] MEDS: NEURONTIN CAP 400 MG PO SCH (05:24)
[2020-10-13 06:26] LABS: BASOPHILS % (AUTO) 0.5 % (0.2-1.0); EOSINOPHILS # (AUTO) 0.2 x10^3/uL (0.0-0.2); EOSINOPHILS % (AUTO) 3.2 % (0.9-2.9); HEMATOCRIT 36.5 % (42.0-54.0); HEMOGLOBIN 12.3 g/dL (13.5-18.0); LYMPHOCYTES # (AUTO) 1.5 X10^3/uL (1.3-2.9); LYMPHOCYTES % (AUTO) 29.7 % (21.0-51.0); MEAN CORPUSCULAR HEMOGLOBIN 30.6 pg (27.0-34.0); MEAN CORPUSCULAR HGB CONC 33.6 g/dL (33.0-35.0); MEAN CORPUSCULAR VOLUME 91.3 fL (80.0-100.0); MEAN PLATELET VOLUME 7.8 fL (7.4-11.0); MONOCYTES # (AUTO) 0.4 x10^3/uL (0.3-0.8); MONOCYTES % (AUTO) 8.5 % (0.0-13.0); NEUTROPHILS # (AUTO) 2.8 x10^3/uL (2.2-4.8); NEUTROPHILS % (AUTO) 58.1 % (42.0-75.0); PLATELET COUNT 270 X10^3/uL (150.0-450.0); RED CELL DISTRIBUTION WIDTH 13.4 % (11.6-16.5); WHITE BLOOD COUNT 4.9 X10^3/uL (3.6-10.0)
[2020-10-13 06:43] LABS: ALANINE AMINOTRANSFERASE 79 Units/L (12-78); ALKALINE PHOSPHATASE 220 Units/L (46-116); ASPARTATE AMINO TRANSFERASE 40 Units/L (15-37); BLOOD UREA NITROGEN 13 mg/dL (7-18); CALCIUM 8.9 mg/dL (8.5-10.1); CARBON DIOXIDE 26.4 mmol/L (21-32); CHLORIDE 102 mmol/L (98-107); COR CA(FOR HYPOALB) 9.7 mg/dL (8.5-10.1); CREATININE 1.19 mg/dL (0.70-1.30); SODIUM 138 mmol/L (136-145); TOTAL PROTEIN 7.4 g/dL (6.4-8.2); eGFR NON BLACK RACES > 60 (>60)
[2020-10-13] MEDS: BUSPAR PO SCH (08:55)
[2020-10-13] MEDS: INVANZ INJ 1 GM VIAL 1 GM in NS 100 ML IV + SPIKE MINIBAG* 100 ML IV SCH (08:55)
[2020-10-13] MEDS: ASPIRIN EC 81 MG PO SCH (08:55)
[2020-10-13] MEDS: PLAVIX PO SCH (08:55)
[2020-10-13] MEDS: COREG TAB 25 MG PO SCH (08:55)
[2020-10-13] MEDS: PROTONIX INJ 40 MG VIAL IVP SCH (08:56)
[2020-10-13] MEDS: SACUBITRIL VALSARTAN PO SCH (08:56)
[2020-10-13] MEDS: WELLBUTRIN SR 150 MG (BID) PO SCH (08:56)
[2020-10-13 09:04] VITALS: BP 107/66
[2020-10-13] MEDS: KLONOPIN TAB 0.5 MG PO PRN (10:46)
== END 2020-10-13 12:00 | disposition home health service (06) ==
LOC: MED/SURG
PROVIDERS: ADMIT Internal Medicine; ATTEND Internal Medicine
DX: J44.9 Chronic obstructive pulmonary disease, unspecified; M47.812 Spondylosis without myelopathy or radiculopathy, cervical region; Z20.828 Contact with and (suspected) exposure to other viral communicable diseases; I25.10 Atherosclerotic heart disease of native coronary artery without angina pectoris; Z95.0 Presence of cardiac pacemaker; F41.8 Other specified anxiety disorders; B96.20 Unspecified Escherichia coli [E. coli] as the cause of diseases classified elsewhere; R78.81 Bacteremia; I10 Essential (primary) hypertension; E78.2 Mixed hyperlipidemia; R51.9 Headache, unspecified

== ENCOUNTER 2021-01-12 16:06 | Observation (INO) ==
--- NOTE | 2021-01-12 16:18 | DR.SOBA ---
HPI Time Seen Time Seen by Provider: 01/12/21 16:17 Primary Care Physician Primary Care Physician: KIRSTEN OSBORNE HPI Comment HPI Comment: PATIENT IS 60YR OLD MALE IN ER WITH COUGH, CONGESTION AND SOB TIMES 2 DAYS. WORSE TODAY. SHE IS NAUSEATED BUT NO FEVER. PATIENT DENIES DIARRHEA OR DYSURIA. VOMITS SOMETIME AFTER COUGHING. Complaints Chief Complaint Doctors Comments: COUGH, CONGESTION AND SOB TIMES 2 DAY. Chief Complaint:: PT. C/O LABORED BREATHING X 2 DAYS. PT. STATES HE HAS BEEN COUGHING SO MUCH THAT HE VOMITS. PT. WAS SEEN IN THE ER FOR SAME C/O. COVID-19 Coronavirus risk:travel/contact w/high risk person: No Has patient experienced Coronavirus symptoms: No Source History Provided: Patient Mode of Arrival Mode of Arrival: Ambulatory Timing Onset of Chief Complaint: 01/10/21 Context Onset:: At Rest PE Risk Factors:: None History of:: COPD and CHF Currently on:: Neither Prehospital Care:: None Modifying Factors Worsens:: Exertion Improves:: Rest PMH PMH Past Medical History: Yes Past Medical History: Anxiety, CHF, COPD, Coronary Artery Disease, Depression, Dyslipidemia, Headaches, Hypertension, NC and Renal Disease Past Medical History Comment: PE Past Surgical History: Yes Surgical History: Angioplasty/Stents, CABG/Valve Surgery and Ortho Surgery Family History History of Family Medical Conditions: Yes Family Medical History: Diabetes Mellitus, Coronary Artery Disease, Sudden Cardiac and Hypertension Social History Does patient currently use any type of tobacco product: No Have you used tobacco products in the last 12 months: No Type of Tobacco Use: None Does any household member use tobacco: No Alcohol Use: None Do you use any recreational Drugs:: No Lives With: Alone Lives Where: Home Infectious screening In the last 2 months have you had wt loss of >10#?: NO Have you had fever, night sweats or hemotysis?: No Have you traveled outside the country in the last 6 months?: No Isolation: Standard ROS Review of Systems Constitutional: See HPI, Weakness and Fatigue; negative Fever Eyes: No Symptoms Reported and See HPI ENTM: See HPI, Nose Discharge and Nose Congestion Respiratoy: See HPI and Moist Cough; negative Short of Breath and Wheezing Cardiovascular: See HPI Gastrointestinal/Abdominal: See HPI, Abdominal Pain, Diarrhea and Vomiting Genitourinary: No Symptoms Reported and See HPI; negative Dysuria Neurological: See HPI and Weakness Musculoskeletal: No Symptoms Reported, See HPI and Muscle Pain; negative Back Pain Integumentary: No Symptoms Reported and See HPI Hematologic/Lymphatic: No Symptoms Reported and See HPI Endocrine: No Symptoms Reported and See HPI Psychiatric: No Symptoms Reported and See HPI All Other Systems: Reviewed and Negative PE Vital Signs Vitals: Temperature 98.2 F Pulse Rate [Right] 70 Pulse Rate 72 Respiratory Rate 20 Blood Pressure [Right Arm] 147/92 Blood Pressure [Left Arm] 113/72 Blood Pressure 129/79 O2 Sat by Pulse Oximetry 97 General Limitations: No Limitations General Appearance: Alert and In No Apparent Distress Head Head Exam: Normal Inspection and Atraumatic Eyes Eye exam: Normal Appearance and PERRL; negative Scleral Icterus and Conjunctival Injection ENT ENT Exam: Normal Exam, Normal Oropharynx, Normal External Ear Exam and TM's Normal Bilaterally Neck Neck Exam: Normal Inspection and Full ROM Chest Chest Inspection: Normal Inspection and Symmetric Chest Wall Rise; negative Tenderness Respiratory Respiratory Exam: Normal Lung Sounds Bilat and Respiratory Distress; negative Accessory Muscle Use and Chest Wall Tenderness Respiratory Exam: Bilateral: Rhonchi and Lower: Rhonchi Cardiovascular Cardiovascular Exam: Regular Rate, Normal Rhythm and Normal Heart Sounds; negative Systolic Murmur and Diastolic Murmur Abdominal Exam Abdominal Exam: Normal Inspection, Normal Bowel Sounds and Soft; negative Tenderness Extremities Extremities Exam: Normal Inspection and Normal Capillary Refill; negative Tenderness, Edema and Calf Tenderness Back Back Exam: Normal Inspection; negative (R) CVA Tenderness and (L) CVA Tenderness Neurologic Neurological Exam: Alert and Oriented X3 Psychiatric Psychiatric Exam: Normal Affect and Normal Mood Skin Skin Exam: Warm, Dry, Intact and Normal Color ROR Labs Reviewed Result Diagrams: 01/15/21 04:55 01/15/21 08:55 Laboratory: WBC 9.9 X10^3/uL (3.6-10.0) 01/12/21 17:01 RBC 4.09 X10^6/uL (4.7-6.0) L 01/12/21 17:01 Hgb 12.7 g/dL (13.5-18.0) L 01/12/21 17:01 Hct 35.8 % (42.0-54.0) L 01/12/21 17:01 MCV 87.5 fL (80.0-100.0) 01/12/21 17:01 MCH 30.9 pg (27.0-34.0) 01/12/21 17: MCHC 35.4 g/dL (33.0-35.0) H 01/12/21 17: RDW 13.1 % (11.6-16.5) 01/12/21 17: Plt Count 173 X10^3/uL (150.0-450.0) 01/12/21 17: MPV 7.4 fL (7.4-11.0) 01/12/21 17:01 Neut % (Auto) 79.9 % (42.0-75.0) H 01/12/21 17: Lymph % (Auto) 13.0 % (21.0-51.0) L 01/12/21 17: Pierce % (Auto) 6.3 % (0.0-13.0) 01/12/21 17: Eos % (Auto) 0.1 % (0.9-2.9) L 01/12/21 17: Baso % (Auto) 0.7 % (0.2-1.0) 01/12/21 17:01 Neut # (Auto) 7.9 x10^3/uL (2.2-4.8) H 01/12/21 17: Lymph # (Auto) 1.3 X10^3/uL (1.3-2.9) 01/12/21 17:01 Pierce # (Auto) 0.6 x10^3/uL (0.3-0.8) 01/12/21 17: Eos # (Auto) 0.0 x10^3/uL (0.0-0.2) 01/12/21 17: Baso # (Auto) 0.1 X10^3/uL (0.0-0.1) 01/12/21 17: Absolute Nucleated RBC 0.1 /100WBC 01/12/21 17:01 Sample Site Lr 01/12/21 16:50 ABG pH 7.490 (7.35-7.45) H 01/12/21 16:50 ABG pCO2 37.0 mmHg (35.0-45.0) 01/12/21 16:50 ABG pO2 70.0 mmHg (80.0-100.0) L 01/12/21 16:50 ABG HCO3 28.2 mmol/L (22-26) H 01/12/21 16:50 ABG O2 Saturation 95.0 % (90-100) 01/12/21 16:50 ABG Base Excess 4.7 mmol/L (-2.0-2.0) H 01/12/21 16:50 Jarrett Test Pos 01/12/21 16:50 A-a Gradient 33.0 mmHg 01/12/21 16:50 FiO2 21.0 01/12/21 16:50 Blood Gas Comments Rosalio well, kh 01/12/21 16:50 Sodium 142 mmol/L (136-145) 01/12/21 17:01 Corrected Sodium 143 mmol/L (136-145) 01/12/21 17:01 Potassium 3.5 mmol/L (3.5-5.1) 01/12/21 17:01 Chloride 103 mmol/L (98-107) 01/12/21 17:01 Carbon Dioxide 26.7 mmol/L (21-32) 01/12/21 17:01 BUN 11 mg/dL (7-18) 01/12/21 17:01 Creatinine 1.16 mg/dL (0.70-1.30) 01/12/21 17:01 Est GFR (MDRD) Af Amer > 60 (>60) 01/12/21 17:01 Est GFR (MDRD) Non-Af > 60 (>60) 01/12/21 17:01 Glucose 143 mg/dL (65-99) H 01/12/21 17:01 Calcium 8.8 mg/dL (8.5-10.1) 01/12/21 17:01 Corrected Calcium TNP 01/12/21 17:01 Total Bilirubin 1.30 mg/dL (0.2-1.0) H 01/12/21 17:01 AST 25 Units/L (15-37) 01/12/21 17:01 ALT 28 Units/L (12-78) 01/12/21 17:01 Alkaline Phosphatase 47 Units/L (46-116) 01/12/21 17:01 Creatine Kinase 456 Units/L (39-308) H 01/12/21 17:01 CK-MB (CK-2) 5.1 ng/mL (0-4.0) H* 01/12/21 17:01 CK/CKMB % Calc 1.1 % (<4) 01/12/21 17:01 Troponin I 0.03 ng/mL (0-1.5) 01/12/21 17:01 B-Natriuretic Peptide 1110 pg/mL (0-79) H* 01/12/21 17:01 Total Protein 8.0 g/dL (6.4-8.2) 01/12/21 17:01 Albumin 3.9 g/dL (3.4-5.0) 01/12/21 17: Globulin 4.1 g/dL (2.5-4.5) 01/12/21 17:01 Albumin/Globulin Ratio 1.0 Ratio (1.1-2.1) L 01/12/21 17:01 Amylase 32 Units/L (25-115) 01/12/21 17: Lipase 82 Units/L (73-393) 01/12/21 17:01 Specimen Type Clean catch urine 01/12/21 18:00 Urine Color Yellow (YELLOW) 01/12/21 18:00 Urine Appearance Hazy (CLEAR) 01/12/21 18:00 Urine pH 5.0 (5.0 - 8.0) 01/12/21 18:00 Ur Specific Agenda 1.015 (1.000-1.030) 01/12/21 18:00 Urine Protein 2+ (NEGATIVE) 01/12/21 18:00 Urine Glucose (UA) Negative (NEGATIVE) 01/12/21 18:00 Urine Ketones Negative (NEGATIVE) 01/12/21 18:00 Urine Occult Blood 1+ (NEGATIVE) 01/12/21 18:00 Urine Nitrite Negative (NEGATIVE) 01/12/21 18:00 Urine Bilirubin Negative (NEGATIVE) 01/12/21 18:00 Urine Urobilinogen Normal (NORMAL) 01/12/21 18:00 Ur Leukocyte Esterase Negative (NEGATIVE) 01/12/21 18:00 Urine RBC 0-2 /HPF (0-3) 01/12/21 18:00 Urine WBC 0-2 /HPF (0-5) 01/12/21 18:00 Ur Squamous Epith Cells Few /HPF (NEGATIVE) 01/12/21 18:00 Amorphous Sediment Trace /HPF (NEGATIVE) 01/12/21 18:00 Urine Bacteria Negative /HPF (NEGATIVE) 01/12/21 18:00 Ur Culture Indicated? No/not indicated 01/12/21 18:00 SARS CoV-2 RNA Rapid ZEV Negative (NEGATIVE) 01/12/21 17:54 Opioid Opioid Risk Tool Age (Sunil box if 16-45): No History of Preadolescent Sexual Abuse: No Total: 0 Total Score Risk Category: Low Risk Copyright: Oscar HERNANDEZ predicting aberrant behaviors Diagnosis Discharge Problem: Acute respiratory distress CHF (congestive heart failure) Qualifiers: Heart failure type: combined systolic and diastolic Heart failure chronicity: acute on chronic Qualified Code(s): I50.43 - Acute on chronic combined systolic (congestive) and diastolic (congestive) heart failure Instructions Instructions: Shortness of Breath, Adult, [id number] Acute Respiratory Distress Syndrome, Adult Heart Failure, [id number] Forms: Excuse From Work or School Precautions for COVID19 Patient Portal Social Distancing
[2021-01-12 17:02] LABS: ABG ALLEN TEST POS; ABG BASE EXCESS 4.7 mmol/L (-2.0-2.0); ABG HCO3 28.2 mmol/L (22-26)
[2021-01-12 17:17] LABS: BASOPHILS # (AUTO) 0.1 X10^3/uL (0.0-0.1); BASOPHILS % (AUTO) 0.7 % (0.2-1.0); EOSINOPHILS % (AUTO) 0.1 % (0.9-2.9); HEMATOCRIT 35.8 % (42.0-54.0); HEMOGLOBIN 12.7 g/dL (13.5-18.0); LYMPHOCYTES # (AUTO) 1.3 X10^3/uL (1.3-2.9); MEAN CORPUSCULAR HEMOGLOBIN 30.9 pg (27.0-34.0); MEAN CORPUSCULAR HGB CONC 35.4 g/dL (33.0-35.0); MEAN CORPUSCULAR VOLUME 87.5 fL (80.0-100.0); MEAN PLATELET VOLUME 7.4 fL (7.4-11.0); MONOCYTES # (AUTO) 0.6 x10^3/uL (0.3-0.8); MONOCYTES % (AUTO) 6.3 % (0.0-13.0); NEUTROPHILS # (AUTO) 7.9 x10^3/uL (2.2-4.8); NEUTROPHILS % (AUTO) 79.9 % (42.0-75.0); PLATELET COUNT 173 X10^3/uL (150.0-450.0); RED BLOOD COUNT 4.09 X10^6/uL (4.7-6.0); RED CELL DISTRIBUTION WIDTH 13.1 % (11.6-16.5); WHITE BLOOD COUNT 9.9 X10^3/uL (3.6-10.0)
--- NOTE | 2021-01-12 17:20 | RAD ---
HISTORYC/O LABORED BREATHING X 2 DAYS. PT. WAS SEEN IN THE ER 01.11.2021 FOR SAME C/OSTUDYCHEST, 1 VIEWCOMPARISONMarch 2020 chest radiograph.FINDINGSThe trachea is midline. The cardiac silhouette is enlarged but stable. Chronic lung changes/changes of COPD remain with worsening parenchymal disease in the right midlung zone, concerning for an infectious etiology or pneumonia. Stimulator devices are unchanged. No other cardiopulmonary changes from the prior exam are seen. The bony thorax is unremarkable.IMPRESSIONWorsening parenchymal disease seen in the right midlung zone, as above.Electronically signed by: QUE DAMIAN III (Jan 12, 2021 17:18:00)
[2021-01-12 17:35] LABS: BLOOD UREA NITROGEN 11 mg/dL (7-18); CALCIUM 8.8 mg/dL (8.5-10.1); CARBON DIOXIDE 26.7 mmol/L (21-32); CHLORIDE 103 mmol/L (98-107); COR NA(FOR HYPERGLY) 143 mmol/L (136-145); CREATININE 1.16 mg/dL (0.70-1.30); SODIUM 142 mmol/L (136-145); TROPONIN I 0.03 ng/mL (0-1.5); eGFR NON BLACK RACES > 60 (>60)
[2021-01-12 17:58] LABS: ALANINE AMINOTRANSFERASE 28 Units/L (12-78); ALBUMIN 3.9 g/dL (3.4-5.0); ALKALINE PHOSPHATASE 47 Units/L (46-116); ASPARTATE AMINO TRANSFERASE 25 Units/L (15-37); CKMB % 1.1 % (<4); CREATINE KINASE 456 Units/L (39-308)
[2021-01-12 18:13] LABS: CREATINE KINASE MB 5.1 ng/mL (0-4.0)
[2021-01-12 18:25] LABS: BILIRUBIN,URINE NEGATIVE (NEGATIVE); BLOOD/HEMOGLOBIN,URINE 1+ (NEGATIVE); GLUCOSE, URINE NEGATIVE (NEGATIVE); KETONES,URINE NEGATIVE (NEGATIVE); LEUKOCYTE ESTERASE ,URINE NEGATIVE (NEGATIVE); NITRITES,URINE NEGATIVE (NEGATIVE); PROTEIN,URINE 2+ (NEGATIVE); UROBILINOGEN,URINE NORMAL (NORMAL)
[2021-01-12 18:32] LABS: APPEARANCE,URINE HAZY (CLEAR); COLOR,URINE YELLOW (YELLOW)
[2021-01-12 18:36] LABS: AMYLASE 32 Units/L (25-115); LIPASE 82 Units/L (73-393)
[2021-01-12 18:43] LABS: RBC,URINE 0-2 /HPF (0-3)
[2021-01-12 18:46] LABS: BACTERIA,URINE NEGATIVE /HPF (NEGATIVE); SQUAMOUS EPITHELIAL CELL,UR FEW /HPF (NEGATIVE)
[2021-01-12 18:47] LABS: AMORPHOUS SEDIMENT,UR TRACE /HPF (NEGATIVE)
[2021-01-12] MEDS ORDERED: LASIX IVP ONE ×2 (18:59→19:21)
[2021-01-12] MEDS ORDERED: PERCOCET TAB 5/325 MG PO PRN ×2 (21:32→21:54)
[2021-01-12] MEDS ORDERED: PERCOCET TAB 5/325 MG ONE (21:37)
[2021-01-13 00:20] LABS: TROPONIN I 0.04 ng/mL (0-1.5)
[2021-01-13 00:37] LABS: CREATINE KINASE MB 5.1 ng/mL (0-4.0)
[2021-01-13] MEDS ORDERED: NS 100 ML IV 100 ML IV ONE (02:29)
[2021-01-13] MEDS: ROCEPHIN VIAL 1 GRAM 1 G in NS 100 ML IV + SPIKE MINIBAG* 100 ML IV SCH ×2 (02:31→23:06)
[2021-01-13 05:06] LABS: BASOPHILS % (AUTO) 0.4 % (0.2-1.0); EOSINOPHILS # (AUTO) 0.1 x10^3/uL (0.0-0.2); EOSINOPHILS % (AUTO) 0.7 % (0.9-2.9); HEMATOCRIT 36.5 % (42.0-54.0); HEMOGLOBIN 12.6 g/dL (13.5-18.0); LYMPHOCYTES # (AUTO) 1.5 X10^3/uL (1.3-2.9); LYMPHOCYTES % (AUTO) 17.2 % (21.0-51.0); MEAN CORPUSCULAR HEMOGLOBIN 30.6 pg (27.0-34.0); MEAN CORPUSCULAR HGB CONC 34.4 g/dL (33.0-35.0); MEAN CORPUSCULAR VOLUME 88.9 fL (80.0-100.0); MEAN PLATELET VOLUME 7.7 fL (7.4-11.0); MONOCYTES # (AUTO) 0.7 x10^3/uL (0.3-0.8); MONOCYTES % (AUTO) 7.5 % (0.0-13.0); NEUTROPHILS # (AUTO) 6.6 x10^3/uL (2.2-4.8); NEUTROPHILS % (AUTO) 74.2 % (42.0-75.0); PLATELET COUNT 164 X10^3/uL (150.0-450.0); RED BLOOD COUNT 4.11 X10^6/uL (4.7-6.0); RED CELL DISTRIBUTION WIDTH 13.1 % (11.6-16.5); WHITE BLOOD COUNT 8.9 X10^3/uL (3.6-10.0)
[2021-01-13 05:45] LABS: ALANINE AMINOTRANSFERASE 24 Units/L (12-78); ALBUMIN 3.7 g/dL (3.4-5.0); ALKALINE PHOSPHATASE 45 Units/L (46-116); ASPARTATE AMINO TRANSFERASE 27 Units/L (15-37); BLOOD UREA NITROGEN 13 mg/dL (7-18); CALCIUM 8.5 mg/dL (8.5-10.1); CARBON DIOXIDE 28.9 mmol/L (21-32); CHLORIDE 102 mmol/L (98-107); CKMB % 0.8 % (<4); CREATINE KINASE 486 Units/L (39-308); MAGNESIUM 1.9 mg/dL (1.7-2.9); SODIUM 143 mmol/L (136-145); TOTAL PROTEIN 7.8 g/dL (6.4-8.2); TROPONIN I 0.03 ng/mL (0-1.5); eGFR NON BLACK RACES > 60 (>60)
[2021-01-13 05:56] LABS: CREATINE KINASE MB 4.1 ng/mL (0-4.0)
[2021-01-13] MEDS ORDERED: MAGNESIUM SULFATE 1 GRAM/100 mL PREMIX 1 GM/100 ML BAG IV PRN (06:06)
[2021-01-13] MEDS ORDERED: POTASSIUM CHL 60 MEQ/NS 0.45% 500 ML IV PRN (06:06)
[2021-01-13] MEDS ORDERED: MICRO K EXTEN CAP 10 MEQ PO PRN (06:06)
[2021-01-13] MEDS ORDERED: K-RIDER 10 MEQ/NS 100 ML 10 MEQ/100 ML BAG IV PRN (06:06)
[2021-01-13] MEDS ORDERED: POTASSIUM CHL 40 MEQ/NS 0.45% 500 ML IV PRN (06:06)
[2021-01-13] MEDS ORDERED: POTASSIUM CHLORIDE LIQ 20 MEQ UDC PO PRN (06:06)
[2021-01-13] MEDS ORDERED: KLOR-CON PO PRN (06:06)
[2021-01-13] MEDS ORDERED: TUSSIONEX PENNKINETIC SUSP PO ONE (08:36)
[2021-01-13 09:48] LABS: CKMB % 0.8 % (<4); CREATINE KINASE MB 3.6 ng/mL (0-4.0); TROPONIN I 0.03 ng/mL (0-1.5)
--- NOTE | 2021-01-13 10:10 | RAD ---
HISTORYCHFSTUDYCHEST x-ray, 1 VIEWCOMPARISONX-ray 01/12/2021FINDINGSCardiac device leads are unchanged in position. Heart is probably normal in size. No pneumothorax, focal infiltrate, or pleural effusion is seen.IMPRESSIONNo suggestion of CHF. No evidence of pneumonia.Electronically signed by: Damián Kendall (Jan 13, 2021 10:08:10)
[2021-01-13] MEDS: ROBITUSSIN DM PO SCH ×4 (10:11→21:33)
[2021-01-13] MEDS: ENTRESTO 24/26 MG TAB PO SCH ×2 (10:11→21:31)
[2021-01-13] MEDS: WELLBUTRIN SR 150 MG (BID) PO SCH ×2 (10:12→21:36)
[2021-01-13] MEDS: K-DUR TAB 20 MEQ PO SCH (10:12)
[2021-01-13] MEDS: CRESTOR TAB 10 MG PO SCH (10:13)
[2021-01-13] MEDS: COREG TAB 25 MG PO SCH ×2 (10:13→21:31)
[2021-01-13] MEDS: FLOMAX PO SCH (10:13)
[2021-01-13] MEDS: PLAVIX PO SCH (10:17)
[2021-01-13] MEDS: PERCOCET TAB 5/325 MG PO SCH ×4 (10:17→21:32)
[2021-01-13] MEDS: ZANAFLEX PO SCH ×2 (10:19→21:33)
[2021-01-13] MEDS: SOLU-Medrol 40 MG VIAL IVP SCH ×3 (10:19→21:33)
[2021-01-13] MEDS: LOVENOX INJ 40 MG SYR SC SCH (10:19)
[2021-01-13] MEDS: LASIX IVP SCH (10:19)
[2021-01-13] MEDS: PROTONIX INJ 40 MG VIAL IVP SCH (10:19)
[2021-01-13] MEDS: LANOXIN or DIGITEK PO SCH (11:52)
[2021-01-13 12:21] LABS: BILIRUBIN,URINE NEGATIVE (NEGATIVE); BLOOD/HEMOGLOBIN,URINE NEGATIVE (NEGATIVE); GLUCOSE, URINE NEGATIVE (NEGATIVE); KETONES,URINE NEGATIVE (NEGATIVE); LEUKOCYTE ESTERASE ,URINE NEGATIVE (NEGATIVE); NITRITES,URINE NEGATIVE (NEGATIVE); PROTEIN,URINE NEGATIVE (NEGATIVE); UROBILINOGEN,URINE NORMAL (NORMAL)
[2021-01-13 12:23] LABS: COLOR,URINE STRAW (YELLOW)
[2021-01-13 12:24] LABS: APPEARANCE,URINE CLEAR (CLEAR)
[2021-01-13] MEDS: DUONEB 0.5 MG/3 MG (3 mL) NEB SCH ×3 (13:30→20:25)
[2021-01-13] MEDS: NEURONTIN CAP 400 MG PO SCH ×2 (14:54→21:37)
[2021-01-13 15:30] LABS: CKMB % 0.7 % (<4); CREATINE KINASE MB 2.8 ng/mL (0-4.0); TROPONIN I 0.02 ng/mL (0-1.5)
[2021-01-13 18:32] VITALS: BMI 29.1
[2021-01-13 21:40] LABS: CKMB % 0.9 % (<4); CREATINE KINASE 365 Units/L (39-308); CREATINE KINASE MB 3.2 ng/mL (0-4.0); TROPONIN I < 0.02 ng/mL (0-1.5)
[2021-01-13] MEDS: KLONOPIN TAB 1 MG PO PRN (23:16)
[2021-01-14] MEDS: DUONEB 0.5 MG/3 MG (3 mL) NEB SCH ×6 (01:00→21:20)
[2021-01-14 05:33] LABS: BASOPHILS % (AUTO) 0.2 % (0.2-1.0); HEMATOCRIT 35.1 % (42.0-54.0); HEMOGLOBIN 12.5 g/dL (13.5-18.0); LYMPHOCYTES # (AUTO) 0.7 X10^3/uL (1.3-2.9); LYMPHOCYTES % (AUTO) 7.1 % (21.0-51.0); MEAN CORPUSCULAR HEMOGLOBIN 30.9 pg (27.0-34.0); MEAN CORPUSCULAR HGB CONC 35.6 g/dL (33.0-35.0); MEAN CORPUSCULAR VOLUME 86.9 fL (80.0-100.0); MEAN PLATELET VOLUME 7.7 fL (7.4-11.0); MONOCYTES # (AUTO) 0.3 x10^3/uL (0.3-0.8); NEUTROPHILS # (AUTO) 8.7 x10^3/uL (2.2-4.8); NEUTROPHILS % (AUTO) 89.7 % (42.0-75.0); PLATELET COUNT 166 X10^3/uL (150.0-450.0); RED BLOOD COUNT 4.03 X10^6/uL (4.7-6.0); RED CELL DISTRIBUTION WIDTH 12.8 % (11.6-16.5); WHITE BLOOD COUNT 9.6 X10^3/uL (3.6-10.0)
[2021-01-14] MEDS: NEURONTIN CAP 400 MG PO SCH ×3 (05:41→22:07)
[2021-01-14 05:54] LABS: ALANINE AMINOTRANSFERASE 22 Units/L (12-78); ALBUMIN 3.2 g/dL (3.4-5.0); ALKALINE PHOSPHATASE 43 Units/L (46-116); ASPARTATE AMINO TRANSFERASE 16 Units/L (15-37); BLOOD UREA NITROGEN 16 mg/dL (7-18); CALCIUM 8.5 mg/dL (8.5-10.1); CARBON DIOXIDE 27.2 mmol/L (21-32); CHLORIDE 102 mmol/L (98-107); COR CA(FOR HYPOALB) 9.1 mg/dL (8.5-10.1); COR NA(FOR HYPERGLY) 142 mmol/L (136-145); CREATININE 1.04 mg/dL (0.70-1.30); SODIUM 139 mmol/L (136-145); TOTAL PROTEIN 7.3 g/dL (6.4-8.2); eGFR NON BLACK RACES > 60 (>60)
[2021-01-14] MEDS: LOVENOX INJ 40 MG SYR SC SCH (08:45)
[2021-01-14] MEDS: ROBITUSSIN DM PO SCH ×4 (08:46→20:37)
[2021-01-14] MEDS: ENTRESTO 24/26 MG TAB PO SCH ×2 (08:47→20:33)
[2021-01-14] MEDS: PERCOCET TAB 5/325 MG PO SCH ×4 (08:47→20:34)
[2021-01-14] MEDS: CRESTOR TAB 10 MG PO SCH (08:48)
[2021-01-14] MEDS: FLOMAX PO SCH (08:49)
[2021-01-14] MEDS: ZANAFLEX PO SCH ×2 (08:49→20:37)
[2021-01-14] MEDS: LANOXIN or DIGITEK PO SCH (08:50)
[2021-01-14] MEDS: LASIX IVP SCH (08:51)
[2021-01-14] MEDS: PLAVIX PO SCH (08:51)
[2021-01-14] MEDS: COREG TAB 25 MG PO SCH ×2 (08:51→20:33)
[2021-01-14] MEDS: WELLBUTRIN SR 150 MG (BID) PO SCH ×2 (08:52→20:36)
[2021-01-14] MEDS: K-DUR TAB 20 MEQ PO SCH (08:52)
[2021-01-14] MEDS: PROTONIX INJ 40 MG VIAL IVP SCH (08:53)
--- NOTE | 2021-01-14 11:58 | CT ---
HISTORYHEADACHESTUDYSINUS W/O CONCOMPARISONNone available.TECHNIQUEMultiple axial images of the paranasal sinuses were obtained without the administration of IV contrast. Coronal and sagittal reformats were performed and reviewed. Dose reduction techniques including Automated Exposure Control (AEC) and adjustment of mA and kV were utilized.FINDINGSSmall mucous retention cyst within the right sphenoid sinus. Otherwise, the maxillary sinuses, anterior and posterior ethmoid air cells, sphenoid sinuses, and frontal sinuses demonstrate no evidence for mucosal inflammatory disease. The nasal septum is mildly deviated to the left. Visualized bilateral ostiomeatal units, sphenoethmoidal recesses, and frontal ethmoidal recesses are unremarkable. The visualized orbits are unremarkable. Visualized portions of the posterior fossa and intracranial structures are unremarkable as well.IMPRESSIONUnremarkable CT of the paranasal sinuses.Electronically signed by: MAVIS COOPER (Jan 14, 2021 11:56:14)
[2021-01-14] MEDS: RHINOCORT ALLERGY NASAL SPRAY ENOSTRIL SCH (13:57)
[2021-01-14] MEDS: KLONOPIN TAB 1 MG PO PRN (20:36)
[2021-01-14] MEDS: COLACE CAP 100 MG PO SCH (21:21)
[2021-01-14] MEDS: ROCEPHIN VIAL 1 GRAM 1 G in NS 100 ML IV + SPIKE MINIBAG* 100 ML IV SCH (22:38)
[2021-01-15] MEDS: DUONEB 0.5 MG/3 MG (3 mL) NEB SCH ×3 (01:36→08:40)
[2021-01-15 05:36] LABS: BASOPHILS % (AUTO) 0.5 % (0.2-1.0); EOSINOPHILS # (AUTO) 0.2 x10^3/uL (0.0-0.2); EOSINOPHILS % (AUTO) 1.9 % (0.9-2.9); HEMATOCRIT 40.9 % (42.0-54.0); HEMOGLOBIN 13.7 g/dL (13.5-18.0); LYMPHOCYTES # (AUTO) 2.2 X10^3/uL (1.3-2.9); LYMPHOCYTES % (AUTO) 23.9 % (21.0-51.0); MEAN CORPUSCULAR HEMOGLOBIN 29.9 pg (27.0-34.0); MEAN CORPUSCULAR HGB CONC 33.6 g/dL (33.0-35.0); MEAN CORPUSCULAR VOLUME 88.8 fL (80.0-100.0); MEAN PLATELET VOLUME 7.9 fL (7.4-11.0); MONOCYTES # (AUTO) 0.7 x10^3/uL (0.3-0.8); MONOCYTES % (AUTO) 7.5 % (0.0-13.0); NEUTROPHILS # (AUTO) 6.2 x10^3/uL (2.2-4.8); NEUTROPHILS % (AUTO) 66.2 % (42.0-75.0); PLATELET COUNT 203 X10^3/uL (150.0-450.0); WHITE BLOOD COUNT 9.4 X10^3/uL (3.6-10.0)
[2021-01-15 05:44] LABS: ALANINE AMINOTRANSFERASE 23 Units/L (12-78); ALBUMIN 3.1 g/dL (3.4-5.0); ALKALINE PHOSPHATASE 40 Units/L (46-116); ASPARTATE AMINO TRANSFERASE 15 Units/L (15-37); BLOOD UREA NITROGEN 15 mg/dL (7-18); CALCIUM 8.8 mg/dL (8.5-10.1); CARBON DIOXIDE 29.4 mmol/L (21-32); CHLORIDE 103 mmol/L (98-107); COR CA(FOR HYPOALB) 9.5 mg/dL (8.5-10.1); CREATININE 1.01 mg/dL (0.70-1.30); SODIUM 141 mmol/L (136-145); TOTAL PROTEIN 7.3 g/dL (6.4-8.2); eGFR NON BLACK RACES > 60 (>60)
[2021-01-15] MEDS: NEURONTIN CAP 400 MG PO SCH (05:49)
[2021-01-15] MEDS: K-DUR TAB 20 MEQ PO PRN ×2 (06:11→09:16)
[2021-01-15 08:30] VITALS: BP 114/61
[2021-01-15] MEDS: LOVENOX INJ 40 MG SYR SC SCH (09:12)
[2021-01-15] MEDS: PROTONIX INJ 40 MG VIAL IVP SCH (09:13)
[2021-01-15] MEDS: ROBITUSSIN DM PO SCH (09:13)
[2021-01-15] MEDS: COLACE CAP 100 MG PO SCH (09:13)
[2021-01-15] MEDS: LASIX IVP SCH (09:13)
[2021-01-15] MEDS: PERCOCET TAB 5/325 MG PO SCH (09:14)
[2021-01-15] MEDS: CRESTOR TAB 10 MG PO SCH (09:15)
[2021-01-15] MEDS: PLAVIX PO SCH (09:15)
[2021-01-15] MEDS: K-DUR TAB 20 MEQ PO SCH (09:15)
[2021-01-15] MEDS: FLOMAX PO SCH (09:16)
[2021-01-15] MEDS: ENTRESTO 24/26 MG TAB PO SCH (09:16)
[2021-01-15] MEDS: COREG TAB 25 MG PO SCH (09:16)
[2021-01-15] MEDS: ZANAFLEX PO SCH (09:16)
[2021-01-15] MEDS: LANOXIN or DIGITEK PO SCH (09:17)
[2021-01-15] MEDS: RHINOCORT ALLERGY NASAL SPRAY ENOSTRIL SCH (09:17)
[2021-01-15] MEDS: WELLBUTRIN SR 150 MG (BID) PO SCH (09:17)
== END 2021-01-15 11:45 | disposition home or self-care (01) ==
LOC: MED/SURG 16:06 → ER 16:06 → MED/SURG 21:51
PROVIDERS: ADMIT Internal Medicine; ATTEND Internal Medicine
DX: M62.82 Rhabdomyolysis; I25.10 Atherosclerotic heart disease of native coronary artery without angina pectoris; I11.0 Hypertensive heart disease with heart failure; E78.2 Mixed hyperlipidemia; R51.9 Headache, unspecified; Z79.01 Long term (current) use of anticoagulants; I50.9 Heart failure, unspecified; R06.02 Shortness of breath; R26.89 Other abnormalities of gait and mobility; R06.03 Acute respiratory distress; J44.1 Chronic obstructive pulmonary disease with (acute) exacerbation; K21.9 Gastro-esophageal reflux disease without esophagitis; Z20.822 Contact with and (suspected) exposure to COVID-19

== ENCOUNTER 2023-04-06 00:48 | Observation (INO) ==
--- NOTE | 2023-04-06 01:17 | DR.FEVERAD ---
HPI Time seen Time Seen by Provider: 04/06/23 01:17 PCP Primary Care Physician: joselin cespedes Complaints/Symptoms Chief Complaint Doctor Comments: Patient has been having a temp at home all day yesterday( Temp max 103). Patient has a cough productive of green sputum. He has a h/o COPD but is not 02 dependent at this time.He has ahd chest tightness yesterday am and states that the sxs have decreased at this time.Patient has a H/o CHF patient takes bumex bid,CAD stents x 14/[place] x 2 2nd in 2010. Patient takes plavix and eliquis.He states that he has also had henoptysis. He goes to the cardiolgist at the [facility] in [facility].Patient denies: nausea,v omiting,weakness,syncope,headache. Chief Complaint:: pt stated he has been running a temperture,coughing up mucous with blood and bodyaches. Source History Provided: Patient Mode of Arrival Mode of Arrival: Ambulatory Timing Onset of Chief Complaint: 04/05/23 PMH PMH Past Medical History: Yes Past Medical History: Anxiety, CHF, COPD, Coronary Artery Disease, Depression, Dyslipidemia, Headaches, Hypertension, OR and Renal Disease Past Surgical History: Yes Surgical History: Angioplasty/Stents, CABG/Valve Surgery and Ortho Surgery Family History History of Family Medical Conditions: Yes Family Medical History: Diabetes Mellitus, Heart Failure and Hypertension Social History Alcohol Use: None Do you use any recreational Drugs:: No Lives With: Alone Lives Where: Home Infectious screening In the last 2 months have you had wt loss of >10#?: NO Have you had fever, night sweats or hemotysis?: No Have you traveled outside the country in the last 6 months?: No Isolation: Standard ROS Review of Systems Constitutional: Fever; negative Weakness Eyes: No Symptoms Reported ENTM: No Symptoms Reported Respiratoy: No Symptoms Reported and Productive Cough (green) Cardiovascular: Chest Pain (tightness that is diminished at this time) Gastrointestinal/Abdominal: No Symptoms Reported Genitourinary: No Symptoms Reported Neurological: No Symptoms Reported Musculoskeletal: No Symptoms Reported Integumentary: No Symptoms Reported Hematologic/Lymphatic: No Symptoms Reported Endocrine: No Symptoms Reported Psychiatric: No Symptoms Reported All Other Systems: Reviewed and Negative PE Vital Signs Vitals: Vital Signs Temperature 99.3 F Temperature 98.3 F Temperature 99.6 F Pulse Rate [Left Radial] 62 Pulse Rate [Left Radial] 65 Pulse Rate [Left Radial] 59 Pulse Rate [Left Radial] 60 Pulse Rate [Left Radial] 59 Pulse Rate [Left Radial] 60 Pulse Rate [Left Radial] 60 Pulse Rate [Left Radial] 59 Pulse Rate 90 Respiratory Rate 23 Respiratory Rate 24 Respiratory Rate 20 Respiratory Rate 24 Respiratory Rate 24 Respiratory Rate 22 Respiratory Rate 22 Respiratory Rate 12 Respiratory Rate 20 Blood Pressure [Right Arm] 101/56 Blood Pressure [Right Arm] 87/52 Blood Pressure [Right Arm] 94/50 Blood Pressure [Right Arm] 97/50 Blood Pressure [Right Arm] 89/52 Blood Pressure [Right Arm] 91/55 Blood Pressure [Right Arm] 94/51 Blood Pressure [Left Arm] 89/55 Blood Pressure 104/57 O2 Sat by Pulse Oximetry 95 O2 Sat by Pulse Oximetry 95 O2 Sat by Pulse Oximetry 95 O2 Sat by Pulse Oximetry 95 O2 Sat by Pulse Oximetry 94 O2 Sat by Pulse Oximetry 94 O2 Sat by Pulse Oximetry 94 O2 Sat by Pulse Oximetry 94 O2 Sat by Pulse Oximetry 97 04/06/23 04:00 04/06/23 05:26 04/06/23 05:00 Temperature 99.3 F 98.3 F Temperature Source Oral Oral Pulse Rate [Left Radial] 59 L 62 65 Pulse Rhythm [Left Radial] Regular Regular Regular Pulse Strength [Left Radial] Normal Normal Normal Pulse Assessment Method [Left Radial] Monitor Monitor Monitor Respiratory Rate 20 23 24 Respiratory Depth Normal Normal Normal Respiratory Effort Normal Non-Labored Normal Non-Labored Normal Non-Labored Respiratory Pattern Normal Normal O2 Sat by Pulse Oximetry 95 95 95 Oxygen Delivery Method Room Air Blood Pressure [Right Arm] 94/50 101/56 87/52 Blood Pressure Mean [Right Arm] 64 71 63 Blood Pressure Source [Right Arm] Automatic Cuff Automatic Cuff Blood Pressure Position [Right Arm] Semi Clancy's Semi Clancy's Semi Clancy's General Limitations: No Limitations General Appearance: Alert and In No Apparent Distress Head Head Exam: Normal Inspection Eyes Eye exam: Normal Appearance ENT ENT Exam: Normal Exam Neck Neck Exam: Normal Inspection Respiratory Respiratory Exam: Bilateral: Decreased Breath Sounds Cardiovascular Cardiovascular Exam: Regular Rate and Normal Rhythm Abdominal Exam Abdominal Exam: Normal Inspection, Normal Bowel Sounds and Soft Extremities Extremities Exam: Normal Inspection Back Back Exam: Normal Inspection Neurologic Neurological Exam: Alert and Oriented X3 Psychiatric Psychiatric Exam: Normal Affect and Normal Mood Skin Skin Exam: Warm, Dry, Intact and Normal Color MDM Differential Diagnosis Differential Diagnosis: Dehydration, Electrolyte disorder, Hypoxemia, Myocardial Infarction, Pulmonary embolus, Pneumonia and Sepsis COURSE Treatment Treatment: 01:17 evaluated patient and labs ordered 02:04 Levaquin 750mg iv ordered for productive cough green sputum.CXR did not r eveal consolidation 02:34 D-dimer Pos waiting on CMP to order CTA Chest. Patient is also Covid pos. 04:54 Dr Dela Cruz has accepted patient to his service for treatment of: Hypoxemia,COPD exacerbation,CHF,Covid 19 pos,CARLOS. Patient received NS bolus for bp 88/50.Patient has been admitted obs to his service.Patient placed on 2L oxygen.Patient unable to get CTA chest for pos D-dimer because of creat 2.17.Since 2020 creat 1.3-2.21.Patient chronically on xarelto and plavix 05:10 Patient given decadron 10mg iv and a duoneb for the coughing. ROR Labs Reviewed Laboratory Results Reviewed?: Yes Result Diagrams: 04/06/23 01:50 04/06/23 01:50 Laboratory: WBC 5.9 X10^3/uL (3.6-10.0) 04/06/23 01:50 RBC 4.97 X10^6/uL (4.7-6.0) 04/06/23 01:50 Hgb 11.9 g/dL (13.5-18.0) L 04/06/23 01:50 Hct 36.3 % (42.0-54.0) L 04/06/23 01:50 MCV 73.0 fL (80.0-100.0) L 04/06/23 01:50 MCH 23.9 pg (27.0-34.0) L 04/06/23 01:50 MCHC 32.7 g/dL (33.0-35.0) L 04/06/23 01:50 RDW 20.6 % (11.6-16.5) H 04/06/23 01:50 Plt Count 188 X10^3/uL (150.0-450.0) 04/06/23 01:50 Plt Count Comment Adequate (ADEQUATE) 04/06/23 01:50 MPV 7.5 fL (7.4-11.0) 04/06/23 01:50 Neut % (Auto) 85.2 % (42.0-75.0) H 04/06/23 01:50 Lymph % (Auto) 4.2 % (21.0-51.0) L 04/06/23 01:50 Johnston % (Auto) 9.3 % (0.0-13.0) 04/06/23 01:50 Eos % (Auto) 0.7 % (0.9-2.9) L 04/06/23 01:50 Baso % (Auto) 0.6 % (0.2-1.0) 04/06/23 01:50 Neut # (Auto) 5.1 x10^3/uL (2.2-4.8) H 04/06/23 01:50 Lymph # (Auto) 0.2 X10^3/uL (1.3-2.9) L 04/06/23 01:50 Johnston # (Auto) 0.5 x10^3/uL (0.3-0.8) 04/06/23 01:50 Eos # (Auto) 0.0 x10^3/uL (0.0-0.2) 04/06/23 01:50 Baso # (Auto) 0.0 X10^3/uL (0.0-0.1) 04/06/23 01:50 Absolute Nucleated RBC 0.1 /100WBC 04/06/23 01:50 Plt Morphology Comment Normal (NORMAL) 04/06/23 01:50 RBC Morphology Abnormal (NORMAL) 04/06/23 01:50 Hypochromasia 1+ A 04/06/23 01:50 Anisocytosis 1+ A 04/06/23 01:50 Microcytosis Slight A 04/06/23 01:50 Ovalocytes Present 04/06/23 01:50 PT 19.7 SECONDS (11.8-14.3) 04/06/23 01:50 INR Target Range - 04/06/23 01:50 INR 1.70 (0.8-1.3) H 04/06/23 01:50 APTT 39.3 SECONDS (22.9-36.5) H 04/06/23 01:50 PTT Comment - 04/06/23 01:50 D-Dimer 0.92 ug/ml (0.0-0.57) H 04/06/23 01:50 Sample Site R bra 04/06/23 02:39 ABG pH 7.450 (7.35-7.45) 04/06/23 02:39 ABG pCO2 36.0 mmHg (35.0-45.0) 04/06/23 02:39 ABG pO2 62.0 mmHg (80.0-100.0) L 04/06/23 02:39 ABG HCO3 25.0 mmol/L (22-26) 04/06/23 02:39 ABG O2 Saturation 92.0 % (90-100) 04/06/23 02:39 ABG Base Excess 1.2 mmol/L (-2.0-2.0) 04/06/23 02:39 Jarrett Test N/a 04/06/23 02:39 A-a Gradient 43.0 mmHg 04/06/23 02:39 FiO2 21.0 04/06/23 02:39 Blood Gas Comments Rosalio well immigration consultant 04/06/23 02:39 Sodium 134 mmol/L (136-145) L 04/06/23 01:50 Corrected Sodium TNP 04/06/23 01:50 Potassium 3.5 mmol/L (3.5-5.1) 04/06/23 01:50 Chloride 99 mmol/L (98-107) 04/06/23 01:50 Carbon Dioxide 25.3 mmol/L (21-32) 04/06/23 01:50 BUN 18 mg/dL (7-18) 04/06/23 01:50 Creatinine 2.17 mg/dL (0.70-1.30) H 04/06/23 01:50 Est GFR (MDRD) Af Amer 40 (>60) L 04/06/23 01:50 Est GFR (MDRD) Non-Af 33 (>60) L 04/06/23 01:50 Glucose 103 mg/dL (65-99) H 04/06/23 01:50 Lactic Acid 0.9 mmol/L (0.4-2.0) 04/06/23 01:50 Calcium 8.4 mg/dL (8.5-10.1) L 04/06/23 01:50 Corrected Calcium TNP 04/06/23 01:50 Total Bilirubin 0.70 mg/dL (0.2-1.0) 04/06/23 01:50 AST 19 Units/L (15-37) 04/06/23 01:50 ALT 22 Units/L (12-78) 04/06/23 01:50 Alkaline Phosphatase 49 Units/L (46-116) 04/06/23 01:50 Creatine Kinase 100 Units/L (39-308) 04/06/23 01:50 Troponin I High Sens 17.7 ng/L (4.0-60.0) 04/06/23 03:50 C-Reactive Protein 26.80 mg/L (0-3.0) H 04/06/23 01:50 B-Natriuretic Peptide 606 pg/mL (0-79) H* 04/06/23 01:50 Total Protein 7.8 g/dL (6.4-8.2) 04/06/23 01:50 Albumin 3.8 g/dL (3.4-5.0) 04/06/23 01:50 Globulin 4.0 g/dL (2.5-4.5) 04/06/23 01:50 Albumin/Globulin Ratio 1.0 Ratio (1.1-2.1) L 04/06/23 01:50 SARS-CoV-2 (PCR) Positive (NEGATIVE) A 04/06/23 01:16 Influenza Type A (PCR) Negative (NEGATIVE) 04/06/23 01:16 Influenza Type B (PCR) Negative (NEGATIVE) 04/06/23 01:16 RSV (PCR) Negative (NEGATIVE) 04/06/23 01:16 XRAY XRAY Interpreted by: Radiologist X-ray Results: STUDY: FRONTAL VIEW CHEST COMPARISON: 02/18/2023 HISTORY: COUGHING UP BLOOD FINDINGS: Again seen are bilateral implantable device is which do not appear significantly changed from prior study. No focal consolidation is seen. The heart size is within normal limits. The mediastinum is unremarkable. There is no evidence of pleural effusion or gross pneumothorax. The trachea is midline. IMPRESSION: 1. No focal consolidation is seen. 2. The heart size is normal. Electronically signed by: Zhao Servin (Apr 06, 2023 01:58:40) EKG Compared to prior EKG Dated: 04/06/23 Rate: 60 [place]: Normal (negative axis) Rhythm: NSR Block: 1 (1st degree) Opioid Opioid Risk Tool Age (Sunil box if 16-45): No History of Preadolescent Sexual Abuse: No Total: 0 Total Score Risk Category: Low Risk Copyright: Oscar HERNANDEZ predicting aberrant behaviors Discharge Plan Diagnosis Discharge Problem: Hypoxemia, CHF exacerbation, Acute exacerbation of chronic obstructive pulmonary disease, COVID-19, CARLOS (acute kidney injury) Discharge Plan Patient Disposition: 09 ADMITTED INPATIENT Condition: Stable Orders to Discharge Patient Discharge Orders: Transfer (Routine); Ordered 04/06/23 Ordered By: Ashwini Walden ADDITIONAL NOTES Additional Notes Additional Notes: EKG#2: AXIS neg RATE 60 Rhythm Atrial Paced rhythm with prolonged AV node conduction
--- NOTE | 2023-04-06 02:00 | RAD ---
STUDY: FRONTAL VIEW CHESTCOMPARISON: 02/18/2023HISTORY: COUGHING UP BLOODFINDINGS:Again seen are bilateral implantable device is which do not appear significantly changed from prior study.No focal consolidation is seen.The heart size is within normal limits.The mediastinum is unremarkable.There is no evidence of pleural effusion or gross pneumothorax.The trachea is midline.IMPRESSION:1. No focal consolidation is seen.2. The heart size is normal.Electronically signed by: Zhao Servin (Apr 06, 2023 01:58:40)
[2023-04-06] MEDS ORDERED: LEVAQUIN PREMIX IV 750 MG 750 MG/150 ML BAG IV ONE (02:04)
[2023-04-06 02:06] LABS: MEAN PLATELET VOLUME 7.5 fL (7.4-11.0); MONOCYTES # (AUTO) 0.5 x10^3/uL (0.3-0.8)
--- NOTE | 2023-04-06 02:12 | EKG ---
Test Reason : chest tightness yesterday Blood Pressure : */* mmHG Vent. Rate : 60 BPM Atrial Rate : 60 BPM P-R Int : 258 ms QRS Dur : 122 ms QT Int : 410 ms P-R-T Axes : 56 251 100 degrees QTc Int : 410 ms Sinus rhythm with 1st degree AV block Possible Anterolateral infarct (cited on or before 18-FEB-2023) Abnormal ECG When compared with ECG of 18-FEB-2023 07:04, Sinus rhythm has replaced Atrial flutter Questionable change in initial forces of Lateral leads Nonspecific T wave abnormality no longer evident in Inferior leads Confirmed by Lalo Resendiz ([id number]) on 04/06/2023 9:00:03 AM Referred By: Confirmed By: Lalo Resendiz
[2023-04-06 02:13] LABS: BASOPHILS % (AUTO) 0.6 % (0.2-1.0); EOSINOPHILS % (AUTO) 0.7 % (0.9-2.9); HEMATOCRIT 36.3 % (42.0-54.0); HEMOGLOBIN 11.9 g/dL (13.5-18.0); LYMPHOCYTES # (AUTO) 0.2 X10^3/uL (1.3-2.9); LYMPHOCYTES % (AUTO) 4.2 % (21.0-51.0); MEAN CORPUSCULAR HEMOGLOBIN 23.9 pg (27.0-34.0); MEAN CORPUSCULAR HGB CONC 32.7 g/dL (33.0-35.0); MONOCYTES % (AUTO) 9.3 % (0.0-13.0); NEUTROPHILS # (AUTO) 5.1 x10^3/uL (2.2-4.8); NEUTROPHILS % (AUTO) 85.2 % (42.0-75.0); PLATELET COUNT 188 X10^3/uL (150.0-450.0); RED BLOOD COUNT 4.97 X10^6/uL (4.7-6.0); RED CELL DISTRIBUTION WIDTH 20.6 % (11.6-16.5); WHITE BLOOD COUNT 5.9 X10^3/uL (3.6-10.0)
[2023-04-06 02:17] LABS: ANISOCYTOSIS 1+; HYPOCHROMASIA 1+; MICROCYTOSIS SLIGHT; OVALOCYTES PRESENT; PLATELET MORPHOLOGY COMMENT NORMAL (NORMAL)
[2023-04-06 02:25] LABS: LACTIC ACID 0.9 mmol/L (0.4-2.0)
[2023-04-06 02:29] LABS: ALANINE AMINOTRANSFERASE 22 Units/L (12-78); ALBUMIN 3.8 g/dL (3.4-5.0); ALKALINE PHOSPHATASE 49 Units/L (46-116); ASPARTATE AMINO TRANSFERASE 19 Units/L (15-37); BLOOD UREA NITROGEN 18 mg/dL (7-18); CALCIUM 8.4 mg/dL (8.5-10.1); CARBON DIOXIDE 25.3 mmol/L (21-32); CHLORIDE 99 mmol/L (98-107); CREATININE 2.17 mg/dL (0.70-1.30); GLUCOSE 103 mg/dL (65-99); POTASSIUM 3.5 mmol/L (3.5-5.1); SODIUM 134 mmol/L (136-145); TOTAL PROTEIN 7.8 g/dL (6.4-8.2); eGFR NON BLACK RACES 33 (>60)
[2023-04-06 02:44] LABS: ABG BASE EXCESS 1.2 mmol/L (-2.0-2.0)
[2023-04-06] MEDS ORDERED: NS 500 ML IV 500 ML IV ONE ×4 (04:49→05:52)
[2023-04-06] MEDS ORDERED: DECADRON INJ IM ONE (05:09)
[2023-04-06] MEDS ORDERED: DECADRON INJ IVP ONE (05:22)
[2023-04-06] MEDS ORDERED: DECADRON INJ ONE (05:29)
[2023-04-06] MEDS ORDERED: DUONEB 0.5 MG/3 MG (3 mL) NEB ONE ×2 (05:51→06:03)
[2023-04-06] MEDS ORDERED: K-DUR TAB 20 MEQ PO PRN (08:29)
[2023-04-06] MEDS ORDERED: NovoLIN R (or HumuLIN R) SUBCUT PRN (08:29)
[2023-04-06] MEDS ORDERED: PATIENT'S HOME MEDICATION (Oxycodone-Acetaminophen 10-325 mg tablet) PO PRN ×2 (08:29→09:02)
[2023-04-06] MEDS ORDERED: PULMICORT NEB TX 0.5 MG NEB ONE (08:47)
[2023-04-06] MEDS ORDERED: COREG TAB 25 MG PO SCH (09:00)
[2023-04-06] MEDS ORDERED: BUMEX TAB 1 MG PO SCH (09:00)
[2023-04-06] MEDS ORDERED: XARELTO PO SCH (09:00)
[2023-04-06] MEDS ORDERED: LEVAQUIN PREMIX IV 750 MG 750 MG/150 ML BAG IV SCH (09:00)
[2023-04-06] MEDS ORDERED: PATIENT'S HOME MEDICATION (Rosuvastatin 40 mg tablet) PO SCH (09:00)
[2023-04-06] MEDS ORDERED: SACUBITRIL VALSARTAN PO SCH ×2 (09:00)
[2023-04-06] MEDS ORDERED: ALDACTONE TAB 25 MG PO SCH (09:00)
[2023-04-06] MEDS ORDERED: CRESTOR TAB 10 MG PO SCH (09:00)
--- NOTE | 2023-04-06 09:15 | EKG ---
Test Reason : chest pain Blood Pressure : */* mmHG Vent. Rate : 70 BPM Atrial Rate : 70 BPM P-R Int : 254 ms QRS Dur : 130 ms QT Int : 386 ms P-R-T Axes : 50 250 66 degrees QTc Int : 416 ms Sinus rhythm with 1st degree AV block Right superior axis deviation Nonspecific intraventricular block Abnormal ECG When compared with ECG of 06-APR-2023 03:32, (Unconfirmed) Sinus rhythm has replaced Electronic atrial pacemaker Confirmed by Lalo Resendiz ([id number]) on 04/07/2023 6:43:01 PM Referred By: Confirmed By: Lalo Resendiz
[2023-04-06] MEDS: DUONEB 0.5 MG/3 MG (3 mL) NEB SCH ×4 (09:16→21:00)
[2023-04-06] MEDS: PULMICORT NEB TX 0.5 MG NEB SCH ×2 (09:16→21:00)
[2023-04-06] MEDS: KLONOPIN TAB 1 MG PO PRN ×2 (09:24→21:17)
[2023-04-06] MEDS: CARDURA PO SCH (09:25)
[2023-04-06] MEDS: PLAVIX PO SCH (09:25)
[2023-04-06] MEDS: CRESTOR TAB 10 MG PO SCH (09:25)
[2023-04-06] MEDS: NEURONTIN CAP 400 MG PO SCH ×3 (09:25→21:17)
[2023-04-06] MEDS: PriLOSEC PO SCH ×2 (09:26→21:15)
[2023-04-06] MEDS: BUSPAR PO SCH ×2 (09:26→21:18)
[2023-04-06] MEDS: FLOMAX PO SCH (09:26)
[2023-04-06] MEDS: BACTROBAN TOPICAL OINT TOP SCH ×2 (09:29→21:23)
[2023-04-06] MEDS ORDERED: PERCOCET TAB 5/325 MG PO PRN (10:00)
[2023-04-06] MEDS ORDERED: REMDESIVIR 200 MG in NS 100 ML IV 140 ML IV ONE (10:47)
--- NOTE | 2023-04-06 10:52 | DR.H&P ---
H&P - History & Physical for Day of: H&P Date: 04/06/23 - Chief Complaint Chief Complaint: FEVER, CHILLS, BODY ACHES AND COUGHING UP BLOOD - History of Present Illness History of Present Illness: Patient has been having a temp at home all day yesterday( Temp max 103). Patient has a cough productive of green sputum. He has a h/o COPD but is not 02 dependent at this time.He has ahd chest tightness yesterday am and states that the sxs have decreased at this time.Patient has a H/o CHF patient takes bumex bid,CAD stents x 14/[place] x 2 2nd in 2010. Patient takes plavix and eliquis.He states that he has also had henoptysis. He goes to the cardiolgist at the [facility] in [facility].Patient denies: nausea,vomiting,weakness,syncope,headache. - Past Medical History Past Medical History: NE, Coronary Artery Disease, Hypertension, Dyslipidemia, Renal Disease, Depression, Anxiety, COPD, Headaches, CHF - Past Surgical History Surgical History: Angioplasty/Stents, CABG/Valve Surgery, Ortho Surgery Additional Surgical History: Defibrillator - Family History Family Medical History: Diabetes Mellitus, Heart Failure, Hypertension - Social History Does patient currently use any type of tobacco product: No Have you used tobacco products in the last 12 months: No Type of Tobacco Use: None Does any household member use tobacco: No Alcohol Use: None Prescription drug monitoring program results: PDMP reviewed and no concerns identified - Review of Systems Constitutional: Fever, Chills, Weakness, Malaise Eyes: No Symptoms Reported ENT: No Symptoms Reported Respiratory: Shortness of Breath, SOB with Excertion, Sputum Cardiovascular: No Symptoms Reported Gastrointestinal: Nausea Genitourinary: No Symptoms Reported Musculoskeletal: Back Pain, Neck Pain Skin: No Symptoms Reported Neurological: No Symptoms Reported - Physical Exam Vital Signs: Vital Signs Temperature 99.3 F Temperature 98.3 F Pulse Rate [Left Radial] 62 Pulse Rate [Left Radial] 65 Pulse Rate [Left Radial] 59 Pulse Rate [Left Radial] 60 Pulse Rate [Left Radial] 59 Pulse Rate [Left Radial] 60 Pulse Rate 72 Pulse Rate 70 Respiratory Rate 23 Respiratory Rate 24 Respiratory Rate 20 Respiratory Rate 24 Respiratory Rate 24 Respiratory Rate 22 Blood Pressure [Right Arm] 101/56 Blood Pressure [Right Arm] 87/52 Blood Pressure [Right Arm] 94/50 Blood Pressure [Right Arm] 97/50 Blood Pressure [Right Arm] 89/52 Blood Pressure [Left Arm] 89/55 O2 Sat by Pulse Oximetry 99 O2 Sat by Pulse Oximetry 98 O2 Sat by Pulse Oximetry 95 O2 Sat by Pulse Oximetry 95 O2 Sat by Pulse Oximetry 95 O2 Sat by Pulse Oximetry 95 O2 Sat by Pulse Oximetry 94 O2 Sat by Pulse Oximetry 94 04/06/23 09:16 04/06/23 09:16 Pulse Rate 72 Respiratory Depth Normal Respiratory Effort Normal Respiratory Pattern Normal O2 Sat by Pulse Oximetry 99 Oxygen Delivery Method Room Air Oriented: Normal Eyes: Normal Ear: Normal Nose: Normal Throat: Red Respiratory: Wheezes Throughout Cardiovascular: Normal, Other (DEFIBRILLATOR ). negative: Edema Auscultation: Bowel Sounds: Normal Palpation: Normal Tenderness: Normal Skin: Decreased Turgur Musculoskeletal: Back:Lumbar Psychiatric: Anxiety Affect: Anxious, Depressed Speech Pattern: Clear, Appropriate - Assessment/Plan (1) COVID Status: Acute Plan: ADMIT, RESP CONSULT. SPUTUM CULTUREJ. REPEAT AM CXR, REVIEW AND RESTART HOME MEDICATIONS. REMDESIVIR, ZITHROMAX. SUPPLEMENTAL O2, REPEAT AM CXR. CE ON ADMISSION, COVID 19 PRECAUTIONS, STRICT I&OS (2) Acute respiratory distress Status: Acute (3) Cough with hemoptysis Status: Acute (4) CHF exacerbation Status: Acute (5) CARLOS (acute kidney injury) Status: Acute (6) CAD (coronary artery disease) Status: Chronic (7) Cardiac defibrillator in place Status: Chronic - Allergies Allergies/Adverse Reactions: Allergies Allergy/AdvReac Type Severity Reaction Status Date / Time No Known Drug Allergies Allergy Verified 02/18/23 07:44 - Medications Home Medications: Home Medications Medication Instructions Recorded Confirmed buspirone 10 mg tablet 10 mg PO BID 10/12/20 02/18/23 carvedilol 25 mg tablet 25 mg PO BID 10/12/20 02/18/23 clopidogrel 75 mg tablet 75 mg PO DAILY 10/12/20 02/18/23 digoxin 125 mcg (0.125 mg) tablet 125 mcg PO DAILY 10/12/20 02/18/23 doxepin 50 mg capsule 50 mg PO HS 10/12/20 02/18/23 furosemide 40 mg tablet 40 mg PO BID 10/12/20 02/18/23 gabapentin 800 mg tablet 800 mg PO TID 10/12/20 02/18/23 omeprazole 40 mg capsule,delayed 40 mg PO BID 10/12/20 02/18/23 release oxycodone-acetaminophen 10 mg-325 1 tab PO TID PRN Pain 10/12/20 02/18/23 mg tablet potassium chloride 20 mEq 20 meq PO TID PRN 10/12/20 02/18/23 tablet,extended release(part/cryst) sacubitril 97 mg-valsartan 103 mg 1 tab PO BID 10/12/20 02/18/23 tablet (Entresto) spironolactone 25 mg tablet 25 mg PO DAILY 10/12/20 02/18/23 sucralfate 100 mg/mL oral 1 g PO HS 10/12/20 02/18/23 suspension (Carafate) tamsulosin 0.4 mg capsule 0.4 mg PO DAILY 10/12/20 02/18/23 tizanidine 4 mg tablet 8 mg PO BID 10/12/20 02/18/23 doxazosin 4 mg tablet 4 mg PO DAILY 01/13/21 02/18/23 albuterol sulfate 90 mcg/actuation 1 inh inhalation QID PRN 02/18/23 02/18/23 aerosol inhaler bumetanide 1 mg tablet 1 mg PO BID 02/18/23 02/18/23 clonazepam 1 mg tablet 1 mg PO BID PRN 02/18/23 02/18/23 dapagliflozin propanediol 10 mg 10 mg PO QDAY 02/18/23 02/18/23 tablet (Farxiga) mupirocin 2 % topical ointment 1 applic topical BID-TID 02/18/23 02/18/23 rivaroxaban 20 mg tablet (Xarelto) 20 mg PO QDAY 02/18/23 02/18/23 rosuvastatin 40 mg tablet 40 mg PO QDAY 02/18/23 02/18/23
[2023-04-06] MEDS: LANOXIN or DIGITEK PO SCH ×2 (11:00→11:09)
[2023-04-06 11:08] VITALS: BMI 28.8
[2023-04-06] MEDS: ENTRESTO 49/51 MG TABLET PO SCH ×2 (11:09→21:15)
[2023-04-06] MEDS: ELIQUIS PO SCH ×2 (11:39→21:17)
[2023-04-06] MEDS: PERCOCET TAB 5/325 MG PO PRN ×2 (11:39→21:21)
[2023-04-06] MEDS: ZITHROMAX INJ 500 MG VIAL 500 MG in NS 250 ML IV 250 ML IV SCH (11:40)
[2023-04-06] MEDS: NS 1,000 ML IV 1,000 ML IV SCH (11:40)
--- NOTE | 2023-04-06 14:32 | EKG ---
Test Reason : chest tightness Blood Pressure : */* mmHG Vent. Rate : 60 BPM Atrial Rate : 60 BPM P-R Int : 290 ms QRS Dur : 122 ms QT Int : 420 ms P-R-T Axes : * 243 61 degrees QTc Int : 420 ms Atrial-paced rhythm with prolonged AV conduction Right superior axis deviation Nonspecific intraventricular conduction delay Nonspecific T wave abnormality Abnormal ECG When compared with ECG of 06-APR-2023 01:59, (Unconfirmed) Electronic atrial pacemaker has replaced Sinus rhythm Confirmed by Lalo Resendiz ([id number]) on 04/07/2023 6:43:08 PM Referred By: Confirmed By: Lalo Resendiz
[2023-04-06] MEDS: COREG TAB 25 MG PO SCH (21:16)
[2023-04-06] MEDS: SINEquan PO SCH (21:17)
[2023-04-06] MEDS: CARAFATE ORAL SUSP PO SCH (21:18)
[2023-04-07] MEDS: DUONEB 0.5 MG/3 MG (3 mL) NEB SCH ×6 (00:30→20:16)
[2023-04-07 02:43] LABS: BASOPHILS % (AUTO) 0.2 % (0.2-1.0); HEMATOCRIT 33.3 % (42.0-54.0); HEMOGLOBIN 10.9 g/dL (13.5-18.0); LYMPHOCYTES # (AUTO) 0.5 X10^3/uL (1.3-2.9); LYMPHOCYTES % (AUTO) 10.6 % (21.0-51.0); MEAN CORPUSCULAR HEMOGLOBIN 24.1 pg (27.0-34.0); MEAN CORPUSCULAR HGB CONC 32.8 g/dL (33.0-35.0); MEAN CORPUSCULAR VOLUME 73.6 fL (80.0-100.0); MEAN PLATELET VOLUME 7.6 fL (7.4-11.0); MONOCYTES # (AUTO) 0.6 x10^3/uL (0.3-0.8); MONOCYTES % (AUTO) 13.4 % (0.0-13.0); NEUTROPHILS # (AUTO) 3.2 x10^3/uL (2.2-4.8); NEUTROPHILS % (AUTO) 75.8 % (42.0-75.0); PLATELET COUNT 182 X10^3/uL (150.0-450.0); RED BLOOD COUNT 4.52 X10^6/uL (4.7-6.0); RED CELL DISTRIBUTION WIDTH 20.8 % (11.6-16.5); WHITE BLOOD COUNT 4.3 X10^3/uL (3.6-10.0)
[2023-04-07 02:46] LABS: ANISOCYTOSIS 1+; HYPOCHROMASIA 1+; MICROCYTOSIS SLIGHT; PLATELET MORPHOLOGY COMMENT NORMAL (NORMAL)
[2023-04-07 02:47] LABS: OVALOCYTES PRESENT
[2023-04-07 02:50] LABS: ALBUMIN 3.2 g/dL (3.4-5.0); CALCIUM 8.1 mg/dL (8.5-10.1); CARBON DIOXIDE 26.3 mmol/L (21-32); COR CA(FOR HYPOALB) 8.7 mg/dL (8.5-10.1); CREATININE 1.66 mg/dL (0.70-1.30); POTASSIUM 3.7 mmol/L (3.5-5.1); TOTAL PROTEIN 7.1 g/dL (6.4-8.2)
[2023-04-07] MEDS: NEURONTIN CAP 400 MG PO SCH ×3 (05:11→21:39)
[2023-04-07] MEDS: KLONOPIN TAB 1 MG PO PRN ×2 (08:40→23:14)
[2023-04-07] MEDS: CARDURA PO SCH (08:40)
[2023-04-07] MEDS: ENTRESTO 49/51 MG TABLET PO SCH ×2 (08:42→21:39)
[2023-04-07] MEDS: COREG TAB 25 MG PO SCH ×2 (08:42→21:40)
[2023-04-07] MEDS: LANOXIN or DIGITEK PO SCH (08:42)
[2023-04-07] MEDS: CRESTOR TAB 10 MG PO SCH (08:43)
[2023-04-07] MEDS: FLOMAX PO SCH (08:43)
[2023-04-07] MEDS: ELIQUIS PO SCH ×2 (08:43→21:40)
[2023-04-07] MEDS: PERCOCET TAB 5/325 MG PO PRN ×2 (08:43→19:42)
[2023-04-07] MEDS: PLAVIX PO SCH (08:43)
[2023-04-07] MEDS: BUSPAR PO SCH ×2 (08:43→21:40)
[2023-04-07] MEDS: PriLOSEC PO SCH ×2 (08:43→21:39)
[2023-04-07] MEDS: ZITHROMAX INJ 500 MG VIAL 500 MG in NS 250 ML IV 250 ML IV SCH (08:44)
[2023-04-07] MEDS: BACTROBAN TOPICAL OINT TOP SCH ×2 (08:44→21:41)
[2023-04-07] MEDS: PULMICORT NEB TX 0.5 MG NEB SCH ×2 (09:01→20:16)
[2023-04-07] MEDS: REMDESIVIR 100 MG in NS 250 ML IV 250 ML IV SCH (11:30)
[2023-04-07] MEDS: CARAFATE ORAL SUSP PO SCH (21:39)
[2023-04-07] MEDS: NS 1,000 ML IV 1,000 ML IV SCH (21:40)
[2023-04-07] MEDS: SINEquan PO SCH (21:44)
[2023-04-08] MEDS: DUONEB 0.5 MG/3 MG (3 mL) NEB SCH ×6 (00:29→20:46)
[2023-04-08] MEDS: NEURONTIN CAP 400 MG PO SCH ×3 (05:17→22:14)
[2023-04-08 06:22] LABS: BASOPHILS % (AUTO) 0.6 % (0.2-1.0); EOSINOPHILS % (AUTO) 0.4 % (0.9-2.9); HEMATOCRIT 33.8 % (42.0-54.0); HEMOGLOBIN 11.1 g/dL (13.5-18.0); LYMPHOCYTES # (AUTO) 1.2 X10^3/uL (1.3-2.9); LYMPHOCYTES % (AUTO) 29.2 % (21.0-51.0); MEAN CORPUSCULAR HEMOGLOBIN 24.1 pg (27.0-34.0); MEAN CORPUSCULAR HGB CONC 32.8 g/dL (33.0-35.0); MEAN CORPUSCULAR VOLUME 73.5 fL (80.0-100.0); MEAN PLATELET VOLUME 7.8 fL (7.4-11.0); MONOCYTES # (AUTO) 0.5 x10^3/uL (0.3-0.8); MONOCYTES % (AUTO) 11.3 % (0.0-13.0); NEUTROPHILS # (AUTO) 2.5 x10^3/uL (2.2-4.8); NEUTROPHILS % (AUTO) 58.5 % (42.0-75.0); PLATELET COUNT 168 X10^3/uL (150.0-450.0); RED CELL DISTRIBUTION WIDTH 20.9 % (11.6-16.5); WHITE BLOOD COUNT 4.2 X10^3/uL (3.6-10.0)
[2023-04-08 06:42] LABS: ALANINE AMINOTRANSFERASE 15 Units/L (12-78); ALBUMIN 2.9 g/dL (3.4-5.0); ALKALINE PHOSPHATASE 33 Units/L (46-116); ASPARTATE AMINO TRANSFERASE 16 Units/L (15-37); BLOOD UREA NITROGEN 17 mg/dL (7-18); CARBON DIOXIDE 24.7 mmol/L (21-32); CHLORIDE 107 mmol/L (98-107); COR CA(FOR HYPOALB) 8.9 mg/dL (8.5-10.1); CREATININE 1.37 mg/dL (0.70-1.30); GLUCOSE 84 mg/dL (65-99); POTASSIUM 3.5 mmol/L (3.5-5.1); SODIUM 141 mmol/L (136-145); TOTAL PROTEIN 6.3 g/dL (6.4-8.2); eGFR NON BLACK RACES 56 (>60)
[2023-04-08 07:10] LABS: PLATELET MORPHOLOGY COMMENT NORMAL (NORMAL)
[2023-04-08 07:11] LABS: ANISOCYTOSIS 1+; HYPOCHROMASIA SLIGHT; MICROCYTOSIS SLIGHT; OVALOCYTES 1+
[2023-04-08] MEDS: ZITHROMAX INJ 500 MG VIAL 500 MG in NS 250 ML IV 250 ML IV SCH (08:51)
[2023-04-08] MEDS: COREG TAB 25 MG PO SCH ×2 (08:52→20:22)
[2023-04-08] MEDS: PLAVIX PO SCH (08:52)
[2023-04-08] MEDS: CRESTOR TAB 10 MG PO SCH (08:52)
[2023-04-08] MEDS: ELIQUIS PO SCH ×2 (08:52→20:22)
[2023-04-08] MEDS: ENTRESTO 49/51 MG TABLET PO SCH ×2 (08:52→20:21)
[2023-04-08] MEDS: PriLOSEC PO SCH ×2 (08:52→20:21)
[2023-04-08] MEDS: LANOXIN or DIGITEK PO SCH (08:52)
[2023-04-08] MEDS: BUSPAR PO SCH ×2 (08:53→20:22)
[2023-04-08] MEDS: CARDURA PO SCH (08:53)
[2023-04-08] MEDS: FLOMAX PO SCH (08:53)
[2023-04-08] MEDS: BACTROBAN TOPICAL OINT TOP SCH ×2 (08:53→20:22)
[2023-04-08] MEDS: KLONOPIN TAB 1 MG PO PRN ×2 (08:53→20:21)
[2023-04-08] MEDS: PERCOCET TAB 5/325 MG PO PRN ×2 (08:53→20:21)
[2023-04-08] MEDS: PULMICORT NEB TX 0.5 MG NEB SCH ×2 (08:57→20:46)
[2023-04-08] MEDS ORDERED: LEVAQUIN PREMIX IV 750 MG 750 MG/150 ML BAG IV SCH (09:00)
[2023-04-08] MEDS ORDERED: DIFLUCAN 100 MG IV (MIX by PHARMACY)* 100 MG/50 ML BAG IV SCH (11:00)
[2023-04-08] MEDS: DIFLUCAN 200 MG IV PREMIX* 200 MG/100 ML BAG IV SCH (11:25)
[2023-04-08] MEDS: REMDESIVIR 100 MG in NS 250 ML IV 250 ML IV SCH (12:30)
--- NOTE | 2023-04-08 18:02 | PCM.PROG ---
Progress Note - Progress Note for Day of Date of Exam: 04/08/23 - Subjective Subjective: The patient is a 62-year-old white male with COVID-19 viral illness. The patient was noted to be severely dehydrated and in acute renal failure. He has congestive heart failure, as well as history of atrial fibrillation. The patient is status post WATCHMAN procedure. He does have a defibrillator in place and is on anticoagulant therapy with Eliquis. He denies any hemoptysis. The patient is a little nauseated this morning. He has had some head congestion. He denies any increased shortness of breath. The patient is afebrile this morning. BUN is 17 and creatinine has improved to 1.37. He is on Zithromax and Remdesivir, along with his maintenance medications. His systolic blood pressure usually runs in the 90s and we have just continued home medications including Entresto, beta-torsten, and Aldactone. He has had cardiac monitoring. Chest xray from yesterday still pendning. Pt co sore throat and dry cough. - Past Medical Family Social History Past Med/Fam/Surg Hx: No changes since H&P Allergies: Allergies No Known Drug Allergies Allergy (Verified 02/18/23 07:44) - Review of Systems ROS: No change since H&P - Vital Signs and I&O's Vital Signs: Vital Signs Temperature 98.0 F Temperature 97.5 F Pulse Rate [Left Radial] 60 Pulse Rate [Left Radial] 59 Respiratory Rate 20 Respiratory Rate 20 Blood Pressure [Right Arm] 86/53 Blood Pressure [Right Arm] 101/55 O2 Sat by Pulse Oximetry 96 O2 Sat by Pulse Oximetry 97 04/08/23 16:00 Temperature 98.0 F Temperature Source Oral Pulse Rate [Left Radial] 60 Respiratory Rate 20 O2 Sat by Pulse Oximetry 96 Oxygen Delivery Method Room Air Blood Pressure [Right Arm] 86/53 Blood Pressure Mean [Right Arm] 64 Blood Pressure Source [Right Arm] Automatic Cuff Intake and Output: Intake & Output 04/06/23 04/07/23 04/08/23 04/09/23 11:59 11:59 11:59 11:59 Intake Total 1963 / 1660 Balance 1963 / 1659 - Physical Exam Oriented: Normal Eyes: Normal Ear: Normal Nose: Normal Throat: Red Cardiovascular: Normal, Other (DEFIBRILLATOR ). negative: Edema Auscultation: Bowel Sounds: Normal Tenderness: Normal Skin: Decreased Turgur Musculoskeletal: Back:Lumbar Psychiatric: Anxiety Affect: Anxious, Depressed Speech Pattern: Clear, Appropriate - Laboratory and Diagnostics Result Diagrams: 04/08/23 05:19 04/08/23 05:19 Labs: 04/06/23 01:50 Blood Blood Culture - Preliminary 04/06/23 01:50 Blood Blood Culture - Preliminary 04/06/23 12:20 Sputum - Expectorated Sputum Sputum Culture - Preliminary 04/06/23 12:20 Sputum - Expectorated Sputum - Final Laboratory WBC 4.2 X10^3/uL (3.6-10.0) 04/08/23 05:19 RBC 4.60 X10^6/uL (4.7-6.0) L 04/08/23 05:19 Hgb 11.1 g/dL (13.5-18.0) L 04/08/23 05:19 Hct 33.8 % (42.0-54.0) L 04/08/23 05:19 MCV 73.5 fL (80.0-100.0) L 04/08/23 05:19 MCH 24.1 pg (27.0-34.0) L 04/08/23 05:19 MCHC 32.8 g/dL (33.0-35.0) L 04/08/23 05:19 RDW 20.9 % (11.6-16.5) H 04/08/23 05:19 Plt Count 168 X10^3/uL (150.0-450.0) 04/08/23 05:19 Plt Count Comment Adequate (ADEQUATE) 04/08/23 05:19 MPV 7.8 fL (7.4-11.0) 04/08/23 05:19 Neut % (Auto) 58.5 % (42.0-75.0) 04/08/23 05:19 Lymph % (Auto) 29.2 % (21.0-51.0) 04/08/23 05:19 [place] % (Auto) 11.3 % (0.0-13.0) 04/08/23 05:19 Eos % (Auto) 0.4 % (0.9-2.9) L 04/08/23 05:19 Baso % (Auto) 0.6 % (0.2-1.0) 04/08/23 05:19 Neut # (Auto) 2.5 x10^3/uL (2.2-4.8) 04/08/23 05:19 Lymph # (Auto) 1.2 X10^3/uL (1.3-2.9) L 04/08/23 05:19 [place] # (Auto) 0.5 x10^3/uL (0.3-0.8) 04/08/23 05:19 Eos # (Auto) 0.0 x10^3/uL (0.0-0.2) 04/08/23 05:19 Baso # (Auto) 0.0 X10^3/uL (0.0-0.1) 04/08/23 05:19 Absolute Nucleated RBC 0.0 /100WBC 04/08/23 05:19 Plt Morphology Comment Normal (NORMAL) 04/08/23 05:19 RBC Morphology Abnormal (NORMAL) 04/08/23 05:19 Hypochromasia Slight A 04/08/23 05:19 Anisocytosis 1+ A 04/08/23 05:19 Microcytosis Slight A 04/08/23 05:19 Ovalocytes 1+ A 04/08/23 05:19 PT 19.7 SECONDS (11.8-14.3) 04/06/23 01:50 INR Target Range - 04/06/23 01:50 INR 1.70 (0.8-1.3) H 04/06/23 01:50 APTT 39.3 SECONDS (22.9-36.5) H 04/06/23 01:50 PTT Comment - 04/06/23 01:50 D-Dimer 0.92 ug/ml (0.0-0.57) H 04/06/23 01:50 Sample Site R bra 04/06/23 02:39 ABG pH 7.450 (7.35-7.45) 04/06/23 02:39 ABG pCO2 36.0 mmHg (35.0-45.0) 04/06/23 02:39 ABG pO2 62.0 mmHg (80.0-100.0) L 04/06/23 02:39 ABG HCO3 25.0 mmol/L (22-26) 04/06/23 02:39 ABG O2 Saturation 92.0 % (90-100) 04/06/23 02:39 ABG Base Excess 1.2 mmol/L (-2.0-2.0) 04/06/23 02:39 Jarrett Test N/a 04/06/23 02:39 A-a Gradient 43.0 mmHg 04/06/23 02:39 FiO2 21.0 04/06/23 02:39 Blood Gas Comments Rosalio well benefits representative 04/06/23 02:39 Sodium 141 mmol/L (136-145) 04/08/23 05:19 Corrected Sodium TNP 04/08/23 05:19 Potassium 3.5 mmol/L (3.5-5.1) 04/08/23 05:19 Chloride 107 mmol/L (98-107) 04/08/23 05:19 Carbon Dioxide 24.7 mmol/L (21-32) 04/08/23 05:19 BUN 17 mg/dL (7-18) 04/08/23 05:19 Creatinine 1.37 mg/dL (0.70-1.30) H 04/08/23 05:19 Est GFR (MDRD) Af Amer > 60 (>60) 04/08/23 05:19 Est GFR (MDRD) Non-Af 56 (>60) L 04/08/23 05:19 Glucose 84 mg/dL (65-99) 04/08/23 05:19 Lactic Acid 0.9 mmol/L (0.4-2.0) 04/06/23 01:50 Calcium 8.0 mg/dL (8.5-10.1) L 04/08/23 05:19 Corrected Calcium 8.9 mg/dL (8.5-10.1) 04/08/23 05:19 Total Bilirubin 0.20 mg/dL (0.2-1.0) 04/08/23 05:19 AST 16 Units/L (15-37) 04/08/23 05:19 ALT 15 Units/L (12-78) 04/08/23 05:19 Alkaline Phosphatase 33 Units/L (46-116) L 04/08/23 05:19 Creatine Kinase 108 Units/L (39-308) 04/06/23 08:50 Troponin I High Sens 18.2 ng/L (4.0-60.0) 04/07/23 02:30 C-Reactive Protein 26.80 mg/L (0-3.0) H 04/06/23 01:50 B-Natriuretic Peptide 606 pg/mL (0-79) H* 04/06/23 01:50 Total Protein 6.3 g/dL (6.4-8.2) L 04/08/23 05:19 Albumin 2.9 g/dL (3.4-5.0) L 04/08/23 05:19 Globulin 3.4 g/dL (2.5-4.5) 04/08/23 05:19 Albumin/Globulin Ratio 0.9 Ratio (1.1-2.1) L 04/08/23 05:19 Digoxin 0.86 ng/mL (0.9-2) L 04/06/23 08:50 SARS-CoV-2 (PCR) Positive (NEGATIVE) A 04/06/23 01:16 Influenza Type A (PCR) Negative (NEGATIVE) 04/06/23 01:16 Influenza Type B (PCR) Negative (NEGATIVE) 04/06/23 01:16 RSV (PCR) Negative (NEGATIVE) 04/06/23 01:16 - Plan (1) COVID Status: Acute Plan: ADMIT, RESP CONSULT. SPUTUM CULTUREJ. REPEAT AM CXR, REVIEW AND RESTART HOME MEDICATIONS. REMDESIVIR, ZITHROMAX. SUPPLEMENTAL O2, REPEAT AM CXR. CE ON ADMISSION, COVID 19 PRECAUTIONS, STRICT I&OS (2) Acute respiratory distress Status: Acute (3) Cough with hemoptysis Status: Acute (4) CHF exacerbation Status: Acute (5) CARLOS (acute kidney injury) Status: Acute (6) CAD (coronary artery disease) Status: Chronic (7) Cardiac defibrillator in place Status: Chronic
[2023-04-08] MEDS: SINEquan PO SCH (20:21)
[2023-04-08] MEDS: CARAFATE ORAL SUSP PO SCH (20:22)
[2023-04-08] MEDS: NS 1,000 ML IV 1,000 ML IV SCH (20:23)
[2023-04-09] MEDS: DUONEB 0.5 MG/3 MG (3 mL) NEB SCH ×2 (00:15→06:14)
[2023-04-09] MEDS: NEURONTIN CAP 400 MG PO SCH (05:19)
[2023-04-09 06:24] LABS: BASOPHILS % (AUTO) 0.9 % (0.2-1.0); EOSINOPHILS # (AUTO) 0.1 x10^3/uL (0.0-0.2); EOSINOPHILS % (AUTO) 3.5 % (0.9-2.9); HEMATOCRIT 35.3 % (42.0-54.0); HEMOGLOBIN 11.2 g/dL (13.5-18.0); LYMPHOCYTES # (AUTO) 1.3 X10^3/uL (1.3-2.9); LYMPHOCYTES % (AUTO) 39.1 % (21.0-51.0); MEAN CORPUSCULAR HEMOGLOBIN 23.5 pg (27.0-34.0); MEAN CORPUSCULAR HGB CONC 31.7 g/dL (33.0-35.0); MEAN CORPUSCULAR VOLUME 74.1 fL (80.0-100.0); MEAN PLATELET VOLUME 7.5 fL (7.4-11.0); MONOCYTES # (AUTO) 0.4 x10^3/uL (0.3-0.8); MONOCYTES % (AUTO) 11.2 % (0.0-13.0); NEUTROPHILS # (AUTO) 1.4 x10^3/uL (2.2-4.8); NEUTROPHILS % (AUTO) 45.3 % (42.0-75.0); PLATELET COUNT 155 X10^3/uL (150.0-450.0); RED BLOOD COUNT 4.76 X10^6/uL (4.7-6.0); RED CELL DISTRIBUTION WIDTH 21.3 % (11.6-16.5); WHITE BLOOD COUNT 3.2 X10^3/uL (3.6-10.0)
--- NOTE | 2023-04-09 06:53 | RAD ---
HISTORYCHF, COVID Relevant Clinical InformationSTUDYCHEST, 1 [id number]/2023 isFINDINGSThe trachea is midline. The cardiac silhouette is unremarkable. The lungs are clear without focal infiltrate or effusion. The bony thorax is unremarkable. Bilateral implantable devices unchanged.IMPRESSIONNo acute cardiopulmonary findings .Electronically signed by: Arcenio Reyes (Apr 09, 2023 06:52:05)
[2023-04-09 07:02] LABS: ANISOCYTOSIS 1+; HYPOCHROMASIA 1+; MICROCYTOSIS SLIGHT; OVALOCYTES 1+; PLATELET MORPHOLOGY COMMENT NORMAL (NORMAL)
[2023-04-09 07:13] LABS: ALANINE AMINOTRANSFERASE 18 Units/L (12-78); ALBUMIN 2.8 g/dL (3.4-5.0); ALKALINE PHOSPHATASE 35 Units/L (46-116); ASPARTATE AMINO TRANSFERASE 17 Units/L (15-37); BLOOD UREA NITROGEN 18 mg/dL (7-18); CALCIUM 8.2 mg/dL (8.5-10.1); CARBON DIOXIDE 26.3 mmol/L (21-32); CHLORIDE 108 mmol/L (98-107); COR CA(FOR HYPOALB) 9.2 mg/dL (8.5-10.1); CREATININE 1.35 mg/dL (0.70-1.30); GLUCOSE 94 mg/dL (65-99); POTASSIUM 4.1 mmol/L (3.5-5.1); SODIUM 143 mmol/L (136-145); TOTAL PROTEIN 6.3 g/dL (6.4-8.2); eGFR NON BLACK RACES 57 (>60)
[2023-04-09] MEDS: PERCOCET TAB 5/325 MG PO PRN (07:46)
[2023-04-09] MEDS: ZITHROMAX INJ 500 MG VIAL 500 MG in NS 250 ML IV 250 ML IV SCH (08:39)
[2023-04-09] MEDS: REMDESIVIR 100 MG in NS 250 ML IV 250 ML IV SCH (08:39)
[2023-04-09] MEDS: CRESTOR TAB 10 MG PO SCH (08:40)
[2023-04-09] MEDS: DIFLUCAN 200 MG IV PREMIX* 200 MG/100 ML BAG IV SCH (08:40)
[2023-04-09] MEDS: COREG TAB 25 MG PO SCH (08:41)
[2023-04-09] MEDS: ENTRESTO 49/51 MG TABLET PO SCH (08:41)
[2023-04-09] MEDS: CARDURA PO SCH (08:41)
[2023-04-09] MEDS: ELIQUIS PO SCH (08:42)
[2023-04-09] MEDS: PLAVIX PO SCH (08:42)
[2023-04-09] MEDS: FLOMAX PO SCH (08:42)
[2023-04-09] MEDS: PriLOSEC PO SCH (08:42)
[2023-04-09] MEDS: BACTROBAN TOPICAL OINT TOP SCH (08:43)
[2023-04-09] MEDS: BUSPAR PO SCH (08:43)
[2023-04-09] MEDS: LANOXIN or DIGITEK PO SCH (08:45)
[2023-04-09] MEDS: NS 1,000 ML IV 1,000 ML IV SCH (11:41)
[2023-04-09 13:42] VITALS: BP 108/56; PULSE 62; TEMP 97.8; O2SAT 97
== END 2023-04-09 14:15 | disposition home or self-care (01) ==
LOC: ER 00:52 → MED/SURG 00:52
PROVIDERS: ADMIT Internal Medicine; ATTEND Internal Medicine
DX: K21.9 Gastro-esophageal reflux disease without esophagitis; R06.03 Acute respiratory distress; R04.2 Hemoptysis; I50.9 Heart failure, unspecified; U07.1 COVID-19; Z79.01 Long term (current) use of anticoagulants; Z95.810 Presence of automatic (implantable) cardiac defibrillator; Z95.818 Presence of other cardiac implants and grafts; R79.82 Elevated C-reactive protein (CRP); I25.2 Old myocardial infarction; I25.10 Atherosclerotic heart disease of native coronary artery without angina pectoris; E86.0 Dehydration; R79.1 Abnormal coagulation profile; M19.90 Unspecified osteoarthritis, unspecified site; I11.0 Hypertensive heart disease with heart failure; F32.89 Other specified depressive episodes; F41.8 Other specified anxiety disorders; N17.8 Other acute kidney failure; J44.1 Chronic obstructive pulmonary disease with (acute) exacerbation; E78.2 Mixed hyperlipidemia